=== PATIENT | male | born 1955 | race Caucasian/White ===

== ENCOUNTER 2020-08-21 09:05 | Outpatient (REF) | payer OTHER, SELFPAY ==
--- NOTE | ~2020-08-21 | US_ITS ---
EXAMINATION: US RETROPERITONEAL LIMITED (RENAL ONLY) CLINICAL INFORMATION: Cyst of kidney, acquired. COMPARISON: None TECHNIQUE: Real-time imaging of the kidneys. FINDINGS: RIGHT KIDNEY: 13.2 x 7.7 x 7.3 cm (SAG x AP x TRV). The kidney is normal in size, contour, and echogenicity. Renal cortical thickness is normal. No hydronephrosis. There are multiple anechoic cysts the largest cyst in midpole measuring 1.5 x 1.3 x 1.5 cm. There are echogenic foci within. LEFT KIDNEY: Surgically removed. US/US renal BI IMPRESSION: Multiple cysts right kidney. The largest cyst is complex measuring 1.5 cm. The left kidney has been surgically removed in 2011
== END 2020-08-21 09:06 | disposition home or self-care (01) ==
LOC: HO.US 09:05
PROVIDERS: Visit Provider Urology
DX: N28.1 Cyst of kidney, acquired (principal)
CPT/HCPCS: 76775

== ENCOUNTER → 2020-08-25 11:41 | Outpatient (BNVA) | payer OTHER, SELFPAY | PROVIDERS: PCP Family Medicine; Visit Provider Urology ==

== ENCOUNTER 2021-10-22 13:27 | Outpatient (REF) | payer OTHER, SELFPAY ==
--- NOTE | ~2021-10-22 | US_ITS ---
EXAMINATION: US RETROPERITONEAL LIMITED (RENAL ONLY) CLINICAL INFORMATION: Calculus of kidney. COMPARISON: US retroperitoneal limited (aorta) 08/21/2020. TECHNIQUE: Real-time imaging of the kidneys. FINDINGS: RIGHT KIDNEY: 13.1 x 7.6 x 8.2 cm (SAG x AP x TRV). The kidney is normal in size, contour, and echogenicity. Renal cortical thickness is normal. There are several small cysts. The largest cyst measures 1.8 x 1.3 x 1.8 cm in the midpole and is minimally complex with thin septation. There are 2 echogenic foci in the cortex of the midpole measuring 5 mm and 3 mm, questionable for small stones versus cortical calcifications. No hydronephrosis. LEFT KIDNEY: Surgically absent. US/US renal BI IMPRESSION: Right renal cysts, similar to previous exam. Small calcifications in the cortex of the midpole of the right kidney questionable for cortical calcifications versus stones.
== END 2021-10-22 13:28 | disposition home or self-care (01) ==
LOC: HO.US 13:27
PROVIDERS: Visit Provider Urology
DX: N20.0 Calculus of kidney (principal)
CPT/HCPCS: 76775

== ENCOUNTER 2023-01-01 11:01 | Outpatient (REF) | payer OTHER, SELFPAY ==
--- NOTE | ~2023-01-01 | US_ITS ---
EXAMINATION: US RETROPERITONEAL LIMITED (RENAL ONLY) CLINICAL INFORMATION: Cyst of kidney, acquired. COMPARISON: Renal ultrasound 10/22/2021 and 08/21/2020. TECHNIQUE: Real-time imaging of the kidneys. FINDINGS: RIGHT KIDNEY: 13.1 x 6.8 x 7.7 cm (SAG x AP x TRV). The kidney is normal in size, contour, and echogenicity. Renal cortical thickness is normal. No hydronephrosis. At the upper pole, a 3 mm nonobstructing calculus is seen, with twinkle artifact. At the interpolar aspect, a 4 mm nonobstructing calculus is seen, with twinkle artifact. At the lower pole, a 6 mm nonobstructing calculus or small group of calculi is seen, with twinkle artifact. At the interpolar aspect, a 1.5 cm benign, simple cyst is seen, which requires no imaging follow-up. Also at the interpolar aspect, there is a 1.7 x 1.4 x 1.4 cm mildly complex cyst with fine septation. This shows no mural nodularity or associated color Doppler flow. On the ultrasound examination of 10/23/2021, this measured 1.5 x 1.3 x 1.5 cm, and on 10/22/2021 1.8 x 1.3 x 1.8 cm. LEFT KIDNEY: Surgically absent. US/US renal BI IMPRESSION: 1. There is a continued stable appearance of a 1.7 cm mildly complex mid right renal cyst, fine septation. 2. There are nonobstructing right renal calculi. No right hydronephrosis is noted. 3. The left kidney surgically absent. No abnormal mass or fluid collection is seen within the former left renal bed.
== END 2023-01-01 11:02 | disposition home or self-care (01) ==
LOC: HO.US 11:01
PROVIDERS: PCP Pediatrics; Visit Provider Urology
DX: N28.1 Cyst of kidney, acquired (principal)
CPT/HCPCS: 76775

== ENCOUNTER 2023-01-31 13:05 | Outpatient (AMB) | payer OTHER, SELFPAY ==
--- NOTE | 2023-01-31 13:06 | MHC.OFFVIS ---
Intake Intake Visit Reasons: 1 yr follow up/ US Allergies No Known Allergies Allergy (Verified 10/31/21 11:37) Medication List - Last Reconciled 01/31/23 by Boogie Hillman MD lisinopril 40 mg PO DAILY nebivolol 20 mg PO DAILY pravastatin 20 mg PO DAILY pravastatin 40 mg PO DAILY spironolactone 12.5 mg PO DAILY HPI HPI Comments History of Present Illness Details Claudy Rajan is a very pleasant male. He is a patient of Dr Burgos. He is seen for the following urologic conditions. 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 The renal mass was diagnosed incidentally, during evaluation for, back pain. Imaging included a renal ultrasound, no progression, showing class II cyst(s) 08/03 , a renal ultrasound, 1-2 cm in size, on the right, renal cyst. Prior treatment(s) included nephrectomy. Staging of initial cancer 06/2011 Left - T1b, with no positive lymph nodes, without vena cava involvement. Recent labs include a creatinine 08/02 Cr 1.4, 08/06 1.4 PSA 08/01 2.1. Follow up imaging includes renal US, which shows, stable post intervention changes 07/31 , chest xray normal, , renal US - previosuly described cysts 01/31 , abdominal CT scan, , which shows, stable post intervention changes 08/01 , renal US, stable post intervention changes 07/03 thoracic MRI with normal right ultrasound. - 08/04 renal ultrasound absent left kidney, right kidney renal cyst 1.2 cm stable - 10/05 renal ultrasound absent left kidney, right renal cyst 1.6 cm, small stone - 11/06 renal ultrasound absent left kidney, right kidney renal cyst, small stone Therapeutic plan further surveillance with imaging Review of Systems Const All systems reviewed & are unremarkable except as noted in HPI and below Reports no additional complaints Resp Reports no additional complaints GI Reports no additional complaints Reports as per HPI Musc Reports no additional complaints Physical Exam Telemedicine evaluation Appropriate responses Regular breathing rate and rhythm HEENT Head: Yes normal to inspection Ears: hearing grossly normal bilaterally Eyes General: appearance normal, both eyes and all related structures Neck Neck: Yes normal visual inspection Chest Chest palpation & inspection: normal inspection of the chest Resp Effort & Inspection: normal respiratory effort and able to speak in complete sentences Assessment & Plan Assessment & Plan (1) Nephrolithiasis: Code(s): N20.0 - Calculus of kidney (2) Renal cyst: Code(s): N28.1 - Cyst of kidney, acquired Plan Twelve month follow-up ultrasound Orders: Orders US renal BI 364 Days N20.0 - Calculus of kidney Patient Instructions: Imaging studies, laboratory and physical exam results were discussed and reviewed in detail. No major barriers to patient understanding were identified. An opportunity to ask questions regarding the treatment plan was provided. All questions were answered. The patient expressed understanding and agreement with the above treatment plan. The patient is aware they should contact our office by phone for worsening of their current condition or the appearance of new urologic symptoms. Compliance is encouraged with any medications and followup testing that is ordered. It is a privilege to participate in the urologic care of your patient. If you have any questions or concerns regarding treatment for the above conditions, or other urologic issues, please do not hesitate to contact me. The office telephone contact is [phone]. This note is constructed using voice recognition software. While every effort has been made to ensure accuracy nuclear equipment operator errors may have been included. Yours sincerely, Dr Boogie Hillman MD, [facility] - Urology Providers of Expert, Compassionate Care for the Genitourinary System Telehealth Telehealth Location of provider rendering services: practice address Location of patient: address on file Patient Identification confirmed using: Name, : Yes Telehealth method: video Patient verbally consented to treatment: Yes Patient verbally consented to billing insurance company: Yes Patient informed of any privacy concerns related to visit: Yes Coding Level of Care Code Tele Est Pt Level 4 (68782) Diagnoses Nephrolithiasis N20.0 Renal cyst N28.1
== END 2023-01-31 13:32 | disposition home or self-care (01) ==
LOC: HO.HUSH 13:05
PROVIDERS: PCP Pediatrics; Visit Provider Urology
DX: N20.0 Calculus of kidney (principal); N28.1 Cyst of kidney, acquired
CPT/HCPCS: 99213

== ENCOUNTER → 2023-01-31 13:05 | Outpatient (BNVA) | payer OTHER, SELFPAY | PROVIDERS: PCP Pediatrics; Visit Provider Urology ==

== ENCOUNTER 2024-01-21 07:58 | Outpatient (REF) | payer BC, SELFPAY | END 2024-01-21 07:59 | disposition home or self-care (01) | LOC: HO.US 07:58 | PROVIDERS: Visit Provider Urology | DX: N20.0 Calculus of kidney (principal) | CPT/HCPCS: 76775 ==

== ENCOUNTER 2024-01-30 13:34 | Outpatient (AMB) | payer BC, SELFPAY ==
--- NOTE | 2024-01-30 13:35 | MHC.OFFVIS ---
Intake Visit Reasons: 1y/US(set) Intake Note: Patient is present for Ultrasound follow up Urology Med: None Antibiotic Allergy: None Blood Thinner: None Renal Ultrasound: 01/21/24 Corporate Human Resources Manager Required: No Accompanied by: Self / Same As Patient Allergies No Known Allergies Allergy (Verified 01/30/24 13:41) HPI Comments Details: Claudy Rajan is a very pleasant male. He is a patient of Dr Burgos. He is seen for the following urologic conditions. 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 The renal mass was diagnosed incidentally, during evaluation for, back pain. Imaging included a renal ultrasound, no progression, showing class II cyst(s) 08/03 , a renal ultrasound, 1-2 cm in size, on the right, renal cyst. Prior treatment(s) included nephrectomy. Staging of initial cancer 06/2011 Left - T1b, with no positive lymph nodes, without vena cava involvement. Recent labs include a creatinine 08/02 Cr 1.4, 08/06 1.4 PSA 08/01 2.1. Follow up imaging includes renal US, which shows, stable post intervention changes 07/31 , chest xray normal, , renal US - previosuly described cysts 01/31 , abdominal CT scan, , which shows, stable post intervention changes 08/01 , renal US, stable post intervention changes 07/03 thoracic MRI with normal right ultrasound. - 08/04 renal ultrasound absent left kidney, right kidney renal cyst 1.2 cm stable - 10/05 renal ultrasound absent left kidney, right renal cyst 1.6 cm, small stone - 11/06 renal ultrasound absent left kidney, right kidney renal cyst, small stone - 02/07 renal ultrasound absent left kidney, small cysts right kidney Therapeutic plan further surveillance with imaging Review of Systems Const Denies chills and Denies fever(s) Card Reports no additional complaints and Denies syncope Resp Denies cough GI Denies abdominal pain and Denies heartburn Reports as per HPI and Denies change in libido Neuro Denies syncope Psych Denies change in libido Endo Denies change in libido Physical Exam Const General: cooperative, healthy appearing, comfortable and no acute distress Orientation/consciousness: patient oriented x3 HEENT Face and sinus: Yes normal facial exam Mouth: moist mucous membranes Neck Neck: Yes normal visual inspection, Yes full ROM and Yes trachea midline Chest Chest palpation & inspection: normal inspection of the chest Resp Effort & Inspection: normal respiratory effort, able to speak in complete sentences and no respiratory distress GI Inspection: Yes normal to inspection Back/Spine/Pelvis Cervical Spine: normal cervical lordosis Thoracic/Lumbar Spine: thoracic and lumbar spine normal to inspection Skin General skin exam: no rashes or lesions noted Neuro General: patient oriented x3, gait normal, tone normal and moves all extremities Extrem General: Yes normal to inspection and Yes capillary refill normal Assessment & Plan Assessment & Plan (1) Renal cyst: Code(s): N28.1 - Cyst of kidney, acquired Category: Medical (2) Kidney malignancy: Code(s): C64.9 - Malignant neoplasm of unspecified kidney, except renal pelvis Category: Medical (3) Nephrolithiasis: Code(s): N20.0 - Calculus of kidney Category: Medical Plan Twelve month follow-up renal ultrasound Orders: Orders US renal BI 12 Months N20.0 - Calculus of kidney Patient Instructions: Imaging studies, laboratory and physical exam results were discussed and reviewed in detail. No major barriers to patient understanding were identified. An opportunity to ask questions regarding the treatment plan was provided. All questions were answered. The patient expressed understanding and agreement with the above treatment plan. The patient is aware they should contact our office by phone for worsening of their current condition or the appearance of new urologic symptoms. Compliance is encouraged with any medications and followup testing that is ordered. It is a privilege to participate in the urologic care of your patient. If you have any questions or concerns regarding treatment for the above conditions, or other urologic issues, please do not hesitate to contact me. The office telephone contact is [phone]. This note is constructed using voice recognition software. While every effort has been made to ensure accuracy networker errors may have been included. Yours sincerely, Dr Boogie Hillman MD, [facility] - Urology Providers of Expert, Compassionate Care for the Genitourinary System Coding Level of Care Code Est Pt Level 4 (68091) Diagnoses Renal cyst N28.1 Kidney malignancy C64.9 Nephrolithiasis N20.0
== END 2024-01-30 14:19 | disposition home or self-care (01) ==
PROVIDERS: PCP Pediatrics; Visit Provider Urology
DX: N28.1 Cyst of kidney, acquired (principal); C64.9 Malignant neoplasm of unspecified kidney, except renal pelvis; N20.0 Calculus of kidney
CPT/HCPCS: 99214

== ENCOUNTER 2025-01-18 07:52 | Outpatient (REF) | payer OTHER, SELFPAY ==
--- NOTE | ~2025-01-18 | US_ITS ---
CLINICAL HISTORY: N20.0 - Calculus of kidney US of kidneys Comparison: US/SR - US KIDNEY BILATERAL - 01/21/24 09:21 EST Findings: Status post left nephrectomy, no abnormal soft tissue in the left renal fossa. Right kidney is mildly enlarged, 13.7 cm in length, normal in echogenicity, no cortical thinning. Junctional parenchymal defect at the interpolar region. Simple cortical cysts 8 mm in the upper pole and 17 mm in the midpole. No hydronephrosis or calculus. No abnormal vascular flow. Impression: 1. Right renal benign cysts. 2. Status post left nephrectomy. This document has been electronically signed by: Ora Park MD on 01/18/2025 12:05:25
--- OUTSIDE RECORDS SUMMARY | 2025-01-18 07:55 | XMS_ITS | Clinical Summary ---
Author Organization Formerly [facility] Address [address] [place] [address] Care Team Providers Care Photographic Printer Name Role Phone Ady Barroso MD Primary Care Provider Unavaila ble Allergies No known active allergies Medications Medication Sig Dispensed Refills Start Date End Date Status aspirin EC 81 MG tablet Take 81 mg by mouth daily. 0 Active Nebivolol HCl (BYSTOLIC) 20 MG TABS Take 20 mg by mouth daily. 0 Active cholecalciferol (VITAMIN D3) 1000 units tablet Take 1,000 Units by mouth daily. 0 Active lisinopril (PRINIVIL,ZESTRIL) tablet 40 mg 0 12/03/2017 Active LORazepam (ATIVAN) 1 MG tablet 0 10/21/2017 Active spironolactone (ALDACTONE) tablet 25 mg 0 12/04/2017 Active calcipotriene (DOVONOX) 0.005 % cream 0 02/12/2018 Active fluorouracil (EFUDEX) 5 % cream 0 02/13/2018 Active pravastatin (PRAVACHOL) tablet 20 mg Take 20 mg by mouth daily. 0 Active Active Problems Problem Noted Date Diagnosed Date Essential hypertension, benign 04/26/2019 Mixed hyperlipidemia 04/26/2019 Class 1 obesity due to exces s calories with serious comorbidity and body mass index (BMI) of 32.0 to 32.9 in adult 04/26/2019 Chest discomfort 04/26/2019 Chronic kidney disease (CKD), stage III (moderat e) 04/26/2019 Low serum HDL 04/26/2019 [place] coronary artery calcium score between 1 00 and 199 04/26/2019 Chest pain 04/26/2019 Coronary artery disease invo [place]ving [place] coronary artery of [place] heart without angina pectoris 04/26/2019 Right-sided thoracic back pain 02/17/2018 BP (high blood pressure) 06/02/2017 Kidney failure 06/02/2017 Immunizations Name Administration Dates Next Due Covid-19 (Pfizer) Dilution Required 05/11/2020,0 04/18/2020 Family History Medical History Relation Name Comments Arthritis Father Hypertension Father Lung cancer Father Hypertension Mother Relation Name Status Comments Father Mother Social History Tobacco Use Types Packs/Day Years Used Date Smoking Tobacco: Never Smokeless Tobacco: Never Alcohol Use Standard Drinks/Week Comments No 0 (1 standard drink = 0.6 oz pur e alcohol) Sex and Gender Information Value Date Recorded Sex Assigned at Male 04/18/2020 3:45 PM EST Gender Identity Not on file Sexual Orientation Not on file Job Start Date Occupation Industry Not on file Not on file Not on file Last Filed Vital Signs Vital Sign Reading Time Taken Comments Blood Pressure 120/84 04/26/2019 11:54 AM EST Pulse 80 04/26/2019 11:54 AM EST Temperature 35.9 C (96.6 F) 08/07/2017 6:43 AM EDT Respiratory Rate 12 08/07/2017 8:20 AM EDT Oxygen Saturation 99% 04/26/2019 11:54 AM EST Inhaled Oxygen Concentration - - Weight 96.2 kg (212 lb) 04/26/2019 11:54 AM EST Height 172.7 cm (5' 8 ) 04/26/2019 11:54 AM EST Body Mass Index 32.23 04/26/2019 11:54 AM EST Plan of Treatment Health Maintenance Due Date Last Done Comments Hepatitis C Screening 1955 Pneumococcal Vaccine (1 of 2 - PCV) 11/26/1963 Depression Screening 1969 BMI Counseling 11/26/1975 Preventative Health Evaluation 11/26/1975 DTap / Tdap / Td (1 - Tdap) 02/25/2017 02/24/2017 Fall Risk Assessment 2022 COVID-19 Vaccine ( season) 2024 12/25/2021, 12/10/2020, 05/11/2020, Additional history exists Influenza Vaccine (#1) 2024 , 12/10/2020, 12/12/2019, Additional history exists Colon Cancer Screening (Colonoscopy) 08/08/2027 08/07/2017 RSV Adult > 60+ Yrs or (1 - 1-dose 75+ series) 2032 Shingrix-Zoster Vaccine Completed 04/12/2022, 03/28 Hepatitis B Vaccines Aged Out No long er eligible based on patient's age to complete this topic RSV Ped < 20 months Aged Out No longe r eligible based on patient's age to complete this topic Advance Directives For more information, please contact: [phone] Latest Code Status on File Code Status Date Activated Date Inactivated Comments Full Code 08/07/2017 8:00 AM 08/07/2017 3:02 PM This code status was ascertained in the following way: discussion with patient . Care Teams Photographic Printer Relationship Specialty Start Date End Date Ady Barroso MD PCP - General Family Medicine 06/02/17
--- OUTSIDE RECORDS SUMMARY | 2025-01-18 07:55 | XMS_ITS | Data Portability ---
Author Organization [place] - [facility], [facility] Address [address] [place] [address] Care Team Providers Care Military Science Instructor Name Role Phone SEHLLIE BARROSO Primary Care Provider VERNELL Norton Urologist HOLLY KAY Credit Assistant JOSÉ MIGUEL DYER Golf Ball Cover Treater BONNY DUMONT Crank Hand [phone] Assessment Encounter Date Assessment Date Assessment LastModified by Organization Details LastModified Time 03/31/2023 03/31/2023 Patient is a 67 yo M presenting to clinic for L shoulder pain [email or web address] Not available 03/31/2023 12:46:43 05/13/2023 05/13/2023 Patient presente d to office today for an annual wellness exam. Education was provided on healthy nutrition, including a diet rich in fruits and vegetables, minimizing simple carbohydrates, salt, and saturated fats. Encouraged regular cardiovascular exercise such as walking at least 30 minutes daily, 5 times per week. Emphasized preventive health measures and educated pt on fall prevention and community-based lifestyle interventions to help reduce health risks and promote healthy living. Appropriate handouts were given . [email or web address] Not available 05/13/2023 12:05:53 06/01/2024 06/01/2024 Patient presente d to office today for an annual wellness exam. Education was provided on healthy nutrition, including a diet rich in fruits and vegetables, minimizing simple carbohydrates, salt, and saturated fats. Encouraged regular cardiovascular exercise such as walking at least 30 minutes daily, 5 times per week. Emphasized preventive health measures and educated pt on fall prevention and community-based lifestyle interventions to help reduce health risks and promote healthy living. Appropriate handouts were given . [email or web address] Not available 05/31/2024 09:59:35 Plan of Treatment Reminders Order Date Submit Date Provider Last Modified By Organization Details Last Modified Time Details Appointments MEDICARE ANNUAL WELLNESS 60 2025 08:30A M Shellie Barroso MD Not available Not available Not available Lab HbA1c (hemoglob in A1c), blood 2024 025 [facility], [address] [place] [address], [place], [address], 06/08/2024 13:52:30 lipid panel, serum 2024 025 [facility], [address] [place], [address], [place], [address], 06/08/2024 13:52:23 PSA, serum or plasma 2024 025 [facility], [address] [place], [address], [place], [address], 06/08/2024 13:52:28 vitamin D, 25-hydrox y, total, serum 2024 025 [facility], [address], [address], [place], [address], 06/08/2024 13:52:29 CBC w/ auto diff 2024 025 [facility], [address], [address], [place], [address], 06/08/2024 13:52:27 CMP, serum or plasma 2024 025 [facility], [address], [address], [place], [address], 06/08/2024 13:52:26 uric acid, serum or plasma 2024 025 [facility], [address], [address], [place], [address], 06/08/2024 13:52:25 microalbu min/creat inine, mass ratio, urine 2024 025 [facility], [address], [address], [place], [address], 06/08/2024 13:52:26 lipid panel, serum 2023 024 [facility], [address], [address], [place], [address], 05/14/2023 15:07:37 urinalysi s, dipstick 2023 024 [facility], [address], [place], [address], 05/13/2023 14:52:48 PSA, serum or plasma 2023 024 [facility], [address], [address], [place], [address], 05/14/2023 15:07:41 vitamin D, 25-hydrox y, total, serum 2023 024 [facility], [address], [address], [place], [address], 05/14/2023 15:07:42 CBC w/ auto diff 2023 024 [facility], [address], [address], [place], [address], 05/14/2023 15:07:40 CMP, serum or plasma 2023 024 [facility], [address], [address], [place], [address], 05/14/2023 15:07:39 uric acid, serum or plasma 2023 [facility], [address] [place] [address], [address], [place], [address], 05/14/2023 15:07:38 microalbu min/creat inine, mass ratio, urine 2023 024 [facility], [address] [place] [address], [address], [place], [address], 05/14/2023 15:07:39 Referral physical therapist referral - M25.512 Pain in left shoulder 2023 [email or web address] [facility], [address] [place] [address], [place], [address], 04/07/2023 09:31:31 Procedures None recorded. Surgeries None recorded. Imaging XR, shoulder, 2 or more view - L shoulder pain 2023 [facility], [address] [facility] [address], [place], [address], 03/31/2023 10:13:45 Medication Orders Mounjaro 2.5 mg/0.5 mL subcutane ous pen injector 2023 024 [facility], [address] [place], [place], [id number], 06/01/2024 10:00:41 lorazepam 1 mg tablet 2023 024 [place] [facility], [address] [place] [place], [place], [id number], 05/13/2023 12:41:19 prednison e 20 mg tablet 2023 024 [place] [facility], [address] [place], [place], [id number], 05/13/2023 12:39:25 EpiPen 2-Matias 0.3 mg/0.3 mL injection , auto-inje ctor 2023 024 [place] [facility], [address] [place], [place], [id number], 05/13/2023 12:39:24 prednison e 50 mg tablet 2023 024 [facility], [address] [place], [place], [id number], 05/13/2023 12:32:33 cyclobenz aprine 5 mg tablet 2023 024 [facility], [address] [place] [place], [place], [id number], 06/01/2024 10:00:33 Patient Targets Encounter Date Encounter Id Patient Goals Patient Target Last Modified By Organization Details Last Modified Time 06/01/2024 [id number] 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 Not available Not available Not available Tobacco Smoking Status Never Not available Not available Not available 6 months of Weight 185 lbs Not available Not available Not available custodial goal of Hemoglobin A1C <5.8 Not available Not available Not available Glucose, Fasting less than 100 Not available Not available Not available HDL >40 men; >50 women Not available Not available Not available T4, Free Range 0.8-1.8 Not available Not available Not available Potassium, Serum Range 3.5 - 5.3 Not available Not available Not available TSH 0.4-4.50 Not available Not available Not available custodial goal of Cholesterol, Total less than 200 Not available Not available Not available Cholesterol, LDL less than 100 Not available Not available Not available 06/01/2024 [id number] Updated: 05/31/2024 Low salt diet?yes Home BP readings average?does not have readings, says they are good when he takes them Cardiac Symptoms (i.e. Chest Pain, Shortness of Breath, Palpitations)?st ress test a month ago, no issues since last november GI Symptoms (i.e. Abdominal pain, GERD, Constipation or Diarrhea)?none Symptoms (i.e. Frequent urination at night, Difficulty starting or stopping stream)?none CT Coronary Calcium Score? 03/2018 - CT Coronary Calcium Score = 109 02/2024 - Nuclear ETT - low risk; EF 55% AHA ASCVD 10 year Risk: 05/2024 AHA risk = 15.4% (optimal 9.6%) Sagastume Risk 05/2024 -10.8% with CCS; 10.2% without CCS Family History of CAD?yes but they were cigarette smokers, he has never smoked Obstructive Sleep Apnea?none. test done years ago came back clean RIGOBERTO or ARB? Lisinopril 20 mg (also with spironolactone 25 mg) Statin? Pravastatin 40 mg [email or web address] Not available 06/01/2024 11:26:17 Patient Instructions Encounter Date Encounter Id Patient Instructions Last Modified By Organization Details Last Modified Time 05/13/2023 [id number] shoulder pain: care instructions [email or web address] Not available 05/13/2023 12:27:11 body mass index: care instructions [email or web address] Not available 05/13/2023 12:08:53 02/19/2024 [id number] A total of approximately 35 minutes was spent with patient in evaluation and management of patient's multiple medical concerns & problems and with greater than 50% of the office visit dedicated to retrieving, reviewing and recording test & laboratory results from other providers and former EMR system, formulation of treatment options by counseling and educating, coordination of care, including authoring referral letter, if needed, development of follow up plans and authoring the above progress note. [email or web address] Not available 02/19/2024 18:26:48 06/01/2024 [id number] Follow up: 6 months for follow-up and 1 year for wellness visit Date of next scheduled visit: none made A total of 60 minutes was spent during the encounter with greater than 50% of the office visit dedicated to retrieving, reviewing and recording tests & laboratory results, formulation of treatment options, coordination of care, including authoring referral request if needed, counseling and educating, development of follow up plans and authoring the above office note . I have discussed risks, benefits and potential side effects of prescribed medications. I feel that all questions were answered to the best of my ability and to the satisfaction of the patient, who agreed to proceed with treatment plan. Advised, if not gradually improving, or if symptoms are getting worse, call the office - [phone] or make a follow up appointment for re-evaluation. A clinical summary - updated with today's visit - was given to the patient or made available on the portal . Patient education handout was given, or educational information was incorporated within this note. The policy of [facility] is to inform all patients of any tests we order. If test results are not received within a week of completion, or if there are any questions or confusion about the results or the care plan, then check with our triage/care coordination staff for the results, or make an appointment to discuss the results in depth. EGFP # [phone]. All or part of this note was created by voice recognition software. There may be unintentional sound substitutions within this note which may have gone unnoticed and uncorrected. [email or web address] Not available 06/01/2024 11:28:31 Reason for Referral Physical Therapist Referral for Pain of left shoulder blade M25.512 Pain in left shoulder Referring Physician: Rocky Rosado, Family Medicine, Encounter Date: 03/31/2023 Results Created Date Observation Date Name Description Value Unit Range Abnormal Flag Note LastModifiedBy Organization Detail LastModifiedTime 05/14/1905/14/2023 LIPID PANEL WITH REFLE X TO DIREC T LDL cholesterol, total 193 mg/dL <200 normal Not Available [facility] [place] [facility] [address] [place], [address], 05/14/2023 15:07:37 05/14/1905/14/2023 LIPID PANEL WITH REFLE X TO DIREC T LDL HDL cholesterol 50 mg/dL > or = 40 normal Not Available [facility] [place] [facility] [address] [place], [address], 05/14/2023 15:07:37 05/14/19 24 05/14/2023 LIPID PANEL WITH REFLE X TO DIREC T LDL triglyceride s 211 mg/dL <150 high If a non-f astin g speci men was colle cted, consi leta repea t trigl yceri de testi ng on a fasti ng speci men if clini suzy indic ated. Mookie rich et al. J. of Clin. Lipid ol. 2015; 9:129 -169. Not Available [facility] [place] [facility] [address] [place], [place], [address], 05/14/2023 15:07:37 05/14/19 24 05/14/2023 LIPID PANEL WITH REFLE X TO DIREC T LDL LDL-choleste rol 110 mg/dL _(nelson c) high Refer ence range : <100 Nael able range <100 mg/dL for prima ry preve ntion ; <70 mg/dL for patie nts with CHD or diabe tic patie nts with > or = 2 CHD risk facto rs. LDL-C is now calcu lated using the Kristal n-Hop kins calcu olaf n, which is a valid ated novel shiva bowles r accur acy than the Fried anirudh equat ion in the estim ation of LDL-C . Kristal coe SS et al. CUONG. 2013; 310(1 9): 2061- 2068 (http ://ed ucati on.Qu Pilar Via Novuss. com/f aq/FA Q164) Not Available [facility] [place] [facility] [address] [place], [place], [address], 05/14/2023 15:07:37 05/14/19 24 05/14/2023 LIPID PANEL WITH REFLE X TO DIREC T LDL chol/HDLC ratio 3.9 (calc ) <5.0 normal Not Available [facility] [place] [facility] [address] [place], [place], [address], 05/14/2023 15:07:37 05/14/19 24 05/14/2023 LIPID PANEL WITH REFLE X TO DIREC T LDL non HDL cholesterol 143 mg/dL _(nelson c) <130 high For patie nts with diabe alicia plus 1 major ASCVD risk facto r, treat ing to a non-H DL-C goal of <100 mg/dL (LDL- C of <70 mg/dL ) is consi dallasd a thera jennifer alvarado optio n. Not Available [facility] [place] [facility] [address], [place], [address], 05/14/2023 15:07:37 05/14/19 24 05/14/2023 URIC ACID uric acid 7.2 mg/dL 4.0-8. 0 normal Thera jennifer alvarado targe t for gout patie nts: <6.0 mg/dL Not Available [facility] [place] [facility] [address], [place], [address], 05/14/2023 15:07:38 05/14/19 24 05/14/2023 COMPR EHENS MK METAB OLIC PANEL glucose 76 mg/dL 65-99 normal Fasti ng refer ence inter albert Not Available [facility] [place] [facility] [address], [place], [address], 05/14/2023 15:07:39 05/14/19 24 05/14/2023 COMPR EHENS MK METAB OLIC PANEL urea nitrogen (BUN) 24 mg/dL 7-25 normal Not Available [facility] [place] [facility] [address], [place], [address], 05/14/2023 15:07:39 05/14/19 24 05/14/2023 COMPR EHENS MK METAB OLIC PANEL creatinine 1.29 mg/dL 0.70-1 .35 normal Not Available [facility] [place] [facility] [address], [place], [address], 05/14/2023 15:07:39 05/14/19 24 05/14/2023 COMPR EHENS MK METAB OLIC PANEL eGFR 62 mL/mi n/1.7 3m2 > or = 60 normal Not Available [facility] [address], [place], [address], 05/14/2023 15:07:39 05/14/19 24 05/14/2023 COMPR EHENS MK METAB OLIC PANEL BUN/creatini ne ratio SEE NOTE: (calc ) 6-22 Not Repor florentin: BUN and Creat inine are withi n refer ence range . Not Available [facility] [address], [place], [address], 05/14/2023 15:07:39 05/14/19 24 05/14/2023 COMPR EHENS MK METAB OLIC PANEL sodium 135 mmol/ L 135-14 6 normal Not Available [facility] [address], [place], [address], 05/14/2023 15:07:39 05/14/19 24 05/14/2023 COMPR EHENS MK METAB OLIC PANEL potassium 4.6 mmol/ L 3.5-5. 3 normal Not Available [facility] [address], [place], [address], 05/14/2023 15:07:39 05/14/19 24 05/14/2023 COMPR EHENS MK METAB OLIC PANEL chloride 99 mmol/ L 98-110 normal Not Available [facility] [address], [place], [address], 05/14/2023 15:07:39 05/14/19 24 05/14/2023 COMPR EHENS MK METAB OLIC PANEL carbon dioxide 24 mmol/ L 20-32 normal Not Available [facility] [address], [place], [address], 05/14/2023 15:07:39 05/14/19 24 05/14/2023 COMPR EHENS MK METAB OLIC PANEL calcium 10.0 mg/dL 8.6-10 .3 normal Not Available [facility] [address], [place], [address], 05/14/2023 15:07:39 05/14/19 24 05/14/2023 COMPR EHENS MK METAB OLIC PANEL protein, total 7.7 g/dL 6.1-8. 1 normal Not Available [facility] [address], [place], [address], 05/14/2023 15:07:39 05/14/19 24 05/14/2023 COMPR EHENS MK METAB OLIC PANEL albumin 4.8 g/dL 3.6-5. 1 normal Not Available [facility] [address], [place], [address], 05/14/2023 15:07:39 05/14/19 24 05/14/2023 COMPR EHENS MK METAB OLIC PANEL globulin 2.9 g/dL_ (calc ) 1.9-3. 7 normal Not Available [facility] [address], [place], [address], 05/14/2023 15:07:39 05/14/19 24 05/14/2023 COMPR EHENS MK METAB OLIC PANEL albumin/glob ulin ratio 1.7 (calc ) 1.0-2. 5 normal Not Available [facility] [address], [place], [address], 05/14/2023 15:07:39 05/14/19 24 05/14/2023 COMPR EHENS MK METAB OLIC PANEL bilirubin, total 0.6 mg/dL 0.2-1. 2 normal Not Available [facility] [address] [place], [address], 05/14/2023 15:07:39 05/14/19 24 05/14/2023 COMPR EHENS MK METAB OLIC PANEL alkaline phosphatase 56 U/L 35-144 normal Not Available [facility] [address], [place], [address], 05/14/2023 15:07:39 05/14/19 24 05/14/2023 COMPR EHENS MK METAB OLIC PANEL AST 19 U/L 10-35 normal Not Available [facility] [address], [place], [address], 05/14/2023 15:07:39 05/14/19 24 05/14/2023 COMPR EHENS MK METAB OLIC PANEL ALT 25 U/L 9-46 normal Not Available [facility] [address], [place], [address], 05/14/2023 15:07:39 05/14/19 24 05/14/2023 ALBUM IN, RANDO M URINE W/CRE ATINI NE creatinine, random urine 143 mg/dL 20-320 normal Not Available [facility] [address], [place], [address], 05/14/2023 18:11:04 05/14/19 24 05/14/2023 ALBUM IN, RANDO M URINE W/CRE ATINI NE albumin, urine 0.4 mg/dL see note: normal Refer ence Range : Refer ence Range Not estab lishe d Not Available [facility] [address], [place], [address], 05/14/2023 18:11:04 05/14/19 24 05/14/2023 ALBUM IN, RANDO M URINE W/CRE ATINI NE albumin/crea tinine ratio, random urine 3 mcg/m g_cre at <30 normal The ADA defin es abnor malit ies in album in excre tion as follo ws: Album inuri a Categ ory Resul t (mcg/ mg creat inine ) Marisol l to Mildl y incre ased <30 Moder ately incre ased 30-29 9 Sever angelo incre ased > OR = 300 The ADA recom mends that at least two of three speci mens colle cted withi n a 3-6 month perio d be abnor mal befor e consi jeovany g a patie nt to be withi n a diagn ostic categ ory. Not Available [facility] [place] [facility] [address], [place], [address], 05/14/2023 18:11:04 05/14/19 24 05/14/2023 CBC (INCL UDES DIFF/ PLT) white blood cell count 7.1 thous and/u L 3.8-10 .8 normal Not Available [facility] [address], [place], [address], 05/14/2023 15:07:40 05/14/19 24 05/14/2023 CBC (INCL UDES DIFF/ PLT) red blood cell count 5.03 js on/uL 4.20-5 .80 normal Not Available [facility] [address], [place], [address], 05/14/2023 15:07:40 05/14/19 24 05/14/2023 CBC (INCL UDES DIFF/ PLT) hemoglobin 14.9 g/dL 13.2-1 7.1 normal Not Available [facility] [address], [place], [address], 05/14/2023 15:07:40 05/14/19 24 05/14/2023 CBC (INCL UDES DIFF/ PLT) hematocrit 43.0 % 38.5-5 0.0 normal Not Available [facility] [address], [place], [address], 05/14/2023 15:07:40 05/14/19 24 05/14/2023 CBC (INCL UDES DIFF/ PLT) MCV 85.5 fL 80.0-1 00.0 normal Not Available [facility] [place] [facility] [address], [place], [address], 05/14/2023 15:07:40 05/14/19 24 05/14/2023 CBC (INCL UDES DIFF/ PLT) MCH 29.6 pg 27.0-3 3.0 normal Not Available [facility] [place] [facility] [address], [place], [address], 05/14/2023 15:07:40 05/14/19 24 05/14/2023 CBC (INCL UDES DIFF/ PLT) MCHC 34.7 g/dL 32.0-3 6.0 normal Not Available [facility] [place] [facility] [address], [place], [address], 05/14/2023 15:07:40 05/14/19 24 05/14/2023 CBC (INCL UDES DIFF/ PLT) RDW 14.0 % 11.0-1 5.0 normal Not Available [facility] [address], [place], [address], 05/14/2023 15:07:40 05/14/19 24 05/14/2023 CBC (INCL UDES DIFF/ PLT) platelet count 326 thous and/u L 140-40 0 normal Not Available [facility] [place] [facility] [address], [place], [address], 05/14/2023 15:07:40 05/14/19 24 05/14/2023 CBC (INCL UDES DIFF/ PLT) MPV 10.0 fL 7.5-12 .5 normal Not Available [facility] [place] [facility] [address], [place], [address], 05/14/2023 15:07:40 05/14/19 24 05/14/2023 CBC (INCL UDES DIFF/ PLT) absolute neutrophils 4310 cells /uL 1500-7 800 normal Not Available [facility] [place] [facility] [address], [place], [address], 05/14/2023 15:07:40 05/14/19 24 05/14/2023 CBC (INCL UDES DIFF/ PLT) absolute lymphocytes 1931 cells /uL 850-39 00 normal Not Available [facility] [place] [facility] [address], [place], [address], 05/14/2023 15:07:40 05/14/19 24 05/14/2023 CBC (INCL UDES DIFF/ PLT) absolute monocytes 781 cells /uL 200-95 0 normal Not Available [facility] [place] [facility] [address], [place], [address], 05/14/2023 15:07:40 05/14/19 24 05/14/2023 CBC (INCL UDES DIFF/ PLT) absolute eosinophils 50 cells /uL 15-500 normal Not Available [facility] [place] [facility] [address], [place], [address], 05/14/2023 15:07:40 05/14/19 24 05/14/2023 CBC (INCL UDES DIFF/ PLT) absolute basophils 28 cells /uL 0-200 normal Not Available [facility] [place] [facility] [address], [place], [address], 05/14/2023 15:07:40 05/14/19 24 05/14/2023 CBC (INCL UDES DIFF/ PLT) neutrophils 60.7 % normal Not Available [facility] [place] [facility] [address], [place], [address], 05/14/2023 15:07:40 05/14/19 24 05/14/2023 CBC (INCL UDES DIFF/ PLT) lymphocytes 27.2 % normal Not Available [facility] [place] [facility] [address], [address], 05/14/2023 15:07:40 05/14/19 24 05/14/2023 CBC (INCL UDES DIFF/ PLT) monocytes 11.0 % normal Not Available [facility] [place] [facility] [address], [place], [address], 05/14/2023 15:07:40 05/14/19 24 05/14/2023 CBC (INCL UDES DIFF/ PLT) eosinophils 0.7 % normal Not Available [facility] [place] [facility] [address], [place], [address], 05/14/2023 15:07:40 05/14/19 24 05/14/2023 CBC (INCL UDES DIFF/ PLT) basophils 0.4 % normal Not Available [facility] [place] [facility] [address], [address], 05/14/2023 15:07:40 05/14/19 24 05/14/2023 PSA, TOTAL PSA, total 1.06 NG/mL < or = 4.00 normal The total PSA value from this assay syste m is stand ardiz ed again st the [facility] stand bebe. The test resul t will be appro ximat angelo 20% lower when geena red to the equim olar- stand ardiz ed total PSA (Gaitan man Coult er). Geena rison of seria l PSA resul ts shoul d be inter prete d with this fact in mind. This test was perfo rmed using the Sieme ns chemi lumin escen t metho d. Value s obtai danilo from diffe rent assay metho ds canno t be used inter parnell eably . PSA level s, regar dless of value , shoul d not be inter prete d as absol latosha evide nce of the prese nce or absen ce of disea se. Not Available [facility] [place] [facility] [address] [place], [address], 05/14/2023 15:07:41 05/14/19 24 05/14/2023 VITAM IN D,25- OH,TO MORENO,I A vitamin D,25-oh,tota l,ia 40 NG/mL 30-100 normal Vitam in D Statu s 25-OH Vitam in D: Defic iency : <20 ng/mL Insuf ficie ncy: 20 - 29 ng/mL Optim al: > or = 30 ng/mL For 25-OH Vitam in D testi ng on patie nts on D2-stewart pplem entat ion and patie nts for whom quant itati on of D2 and D3 fract ions is requi red, the [facility] eD(TM ) 25-OH VIT D, (D2,D 3), LC/MS /MS is recom kyle d: order code 59476 (radha ents >2yrs ). See Note 1 NO COLLE CTION DATE RECEI DEONDRE. WE HAVE USED THE DATE THE SPECI MEN WAS RECEI DEONDRE BY THIS LABOR ATORY THE COLLE CTION DATE. IF THIS IS INCOR RECT, ASTRID Fraire CONTSupa CT CLIEN T SERVI PRUDENCE. PHONE JANI R: [phone] Note 1 For addit ional infor astrid terry refer to http: //[facility] rosalba coe.Que stDia gnost ics.c om/fa q/FAQ 199 (This link is being provi ded for infor jia martins/ educa priti kim purpo ses only. ) Not Available [facility] [place] [facility] [address] [place], [place], [address], 05/14/2023 15:07:42 05/13/19 24 05/13/2023 urina lysis , dipst ick Glucose Negati ve Not Available [address], [place], [address], 05/13/2023 12:02:27 05/13/19 24 05/13/2023 urina lysis , dipst ick Appearance Slight ly Cloudy Not Available [facility] [address], [place], [address], 05/13/2023 12:02:27 05/13/19 24 05/13/2023 urina lysis , dipst ick Color Pale Yellow Not Available [facility] [address], [place], [address], 05/13/2023 12:02:27 05/13/19 24 05/13/2023 urina lysis , dipst ick Leukocytes Negati ve Not Available [facility] [address], [place], [address], 05/13/2023 12:02:27 05/13/19 24 05/13/2023 urina lysis , dipst ick Nitrate Negati ve Not Available [facility] [address], [place], [address], 05/13/2023 12:02:27 05/13/19 24 05/13/2023 urina lysis , dipst ick Urobilinogen Negati ve Not Available [facility] [address], [place], [address], 05/13/2023 12:02:27 05/13/19 24 05/13/2023 urina lysis , dipst ick Protein Negati ve Not Available [facility] [address], [place], [address], 05/13/2023 12:02:27 05/13/19 24 05/13/2023 urina lysis , dipst ick pH 6.0 Not Available [facility] [address], [place], [address], 05/13/2023 12:02:27 05/13/19 24 05/13/2023 urina lysis , dipst ick Blood Negati ve Not Available [facility] [address], [place], [address], 05/13/2023 12:02:27 05/13/19 24 05/13/2023 urina lysis , dipst ick Specific Dickerson 1.020 Not Available [facility] [address], [place], [address], 05/13/2023 12:02:27 05/13/19 24 05/13/2023 urina lysis , dipst ick Ketone Negati ve Not Available [facility] [address], [place], [address], 05/13/2023 12:02:27 05/13/19 24 05/13/2023 urina lysis , dipst ick Bilirubin Negati ve Not Available [facility] [address], [place], [address], 05/13/2023 12:02:27 01/08/20 24 01/09/2024 PTH, INTAC T AND CALCI UM parathyroid hormone, intact 35 pg/mL 16 normal Inter preti ve Guide Intac t PTH Calci um ----- ----- ----- --- ----- ----- ----- -- Marisol l Parat hyroi d Marisol l Marisol l Hypop deysi yroid ism Low or Low Marisol l Low Hyper parat hyroi dism Prima ry Marisol l or High High Secon phyllis High Marisol l or Low Terti katelynn High High Non-P deysi yroid Hyper calce dian Low or Low Marisol l High Not Available [facility] [address], [place], [address], 01/09/2024 16:22:48 01/08/20 24 01/09/2024 PTH, INTAC T AND CALCI UM calcium 9.6 mg/dL 8.6-10 .3 normal Not Available [facility] [place] [facility] [address], [place], [address], 01/09/2024 16:22:48 01/08/2001/09/2024 LIPID PANEL , STAND BEBE cholesterol, total 166 mg/dL <200 normal Not Available [facility] [place] [facility] [address], [place], [address], 01/09/2024 16:22:49 01/08/2001/09/2024 LIPID PANEL , STAND BEBE HDL cholesterol 49 mg/dL > or = 40 normal Not Available [facility] [place] [facility] [address], [place], [address], 01/09/2024 16:22:49 01/08/2001/09/2024 LIPID PANEL , STAND BEBE triglyceride s 199 mg/dL <150 high Not Available [facility] [place] [facility] [address], [place], [address], 01/09/2024 16:22:49 01/08/2001/09/2024 LIPID PANEL , STAND BEBE LDL-choleste rol 87 mg/dL _(nelson c) normal Refer ence range : <100 Nael able range <100 mg/dL for prima ry preve ntion ; <70 mg/dL for patie nts with CHD or diabe tic patie nts with > or = 2 CHD risk facto rs. LDL-C is now calcu lated using the Kristal n-Hop kins calcu olaf n, which is a valid ated novel metho d marisela ashford acshavonne than the Fried anirudh equat ion in the estim ation of LDL-C . Kristal coe SS et al. CUONG. 2013; 310(1 9): 2061- 2068 (http ://ed devonati on.Qu estDi Via Novuss. com/f aq/FA Q164) Not Available [facility] [place] [facility] [address], [place], [address], 01/09/2024 16:22:49 01/08/2001/09/2024 LIPID PANEL , STAND BEBE chol/HDLC ratio 3.4 (calc ) <5.0 normal Not Available [facility] [place] [facility] [address], [place], [address], 01/09/2024 16:22:49 01/08/2001/09/2024 LIPID PANEL , STAND BEBE non HDL cholesterol 117 mg/dL _(nelson c) <130 normal For patie nts with diabe alicia plus 1 major ASCVD risk facto r, treat ing to a non-H DL-C goal of <100 mg/dL (LDL- C of <70 mg/dL ) is consi jose barrosa jennifer alvarado optio n. Not Available [facility] [place] [facility] [address], [place], [address], 01/09/2024 16:22:49 01/08/2001/09/2024 MAGNE SIUM magnesium 1.7 mg/dL 1.5-2. 5 normal Not Available [facility] [place] [facility] [address], [place], [address], 01/09/2024 16:22:49 01/08/2001/09/2024 PHOSP HATE ( PHOSP HORUS ) phosphate ( phosphorus) 4.2 mg/dL 2.1-4. 3 normal Not Available [facility] [address], [place], [address], 01/09/2024 16:22:50 01/08/2001/09/2024 URIC ACID uric acid 6.7 mg/dL 4.0-8. 0 normal Thera jennifer alvarado targe t for gout patie nts: <6.0 mg/dL Not Available [facility] [address], [place], [address], 01/09/2024 16:22:50 01/08/2001/09/2024 COMPR EHENS MK METAB OLIC PANEL glucose 97 mg/dL 65-99 normal Fasti ng refer ence inter albert Not Available [facility] [address], [place], [address], 01/09/2024 16:22:51 01/08/2001/09/2024 COMPR EHENS MK METAB OLIC PANEL urea nitrogen (BUN) 20 mg/dL 7-25 normal Not Available [facility] [address], [place], [address], 01/09/2024 16:22:51 01/08/2001/09/2024 COMPR EHENS MK METAB OLIC PANEL creatinine 1.23 mg/dL 0.70-1 .35 normal Not Available [facility] [address], [place], [address], 01/09/2024 16:22:51 01/08/2001/09/2024 COMPR EHENS MK METAB OLIC PANEL eGFR 65 mL/mi n/1.7 3m2 > or = 60 normal Not Available [facility] [address], [place], [address], 01/09/2024 16:22:51 01/08/2001/09/2024 COMPR EHENS MK METAB OLIC PANEL BUN/creatini ne ratio SEE NOTE: (calc ) 6-22 Not Repor florentin: BUN and Creat inine are withi n refer ence range . Not Available [facility] [address], [place], [address], 01/09/2024 16:22:51 01/08/20 24 01/09/2024 COMPR EHENS MK METAB OLIC PANEL sodium 133 mmol/ L 135-14 6 low Not Available [facility] [address], [place], [address], 01/09/2024 16:22:51 01/08/2001/09/2024 COMPR EHENS MK METAB OLIC PANEL potassium 4.8 mmol/ L 3.5-5. 3 normal Not Available [facility] [address], [place], [address], 01/09/2024 16:22:51 01/08/2001/09/2024 COMPR EHENS MK METAB OLIC PANEL chloride 99 mmol/ L 98-110 normal Not Available [facility] [address], [place], [address], 01/09/2024 16:22:51 01/08/2001/09/2024 COMPR EHENS MK METAB OLIC PANEL carbon dioxide 27 mmol/ L 20-32 normal Not Available [facility] [address], [place], [address], 01/09/2024 16:22:51 01/08/2001/09/2024 COMPR EHENS MK METAB OLIC PANEL calcium 9.6 mg/dL 8.6-10 .3 normal Not Available [facility] [address], [place], [address], 01/09/2024 16:22:51 01/08/2001/09/2024 COMPR EHENS MK METAB OLIC PANEL protein, total 7.3 g/dL 6.1-8. 1 normal Not Available [facility] [address], [place], [address], 01/09/2024 16:22:51 01/08/2001/09/2024 COMPR EHENS MK METAB OLIC PANEL albumin 4.3 g/dL 3.6-5. 1 normal Not Available [facility] [address] [place], [address], 01/09/2024 16:22:51 01/08/20 24 01/09/2024 COMPR EHENS MK METAB OLIC PANEL globulin 3.0 g/dL_ (calc ) 1.9-3. 7 normal Not Available [facility] [address], [place], [address], 01/09/2024 16:22:51 01/08/20 24 01/09/2024 COMPR EHENS MK METAB OLIC PANEL albumin/glob ulin ratio 1.4 (calc ) 1.0-2. 5 normal Not Available [facility] [address], [place], [address], 01/09/2024 16:22:51 01/08/20 24 01/09/2024 COMPR EHENS MK METAB OLIC PANEL bilirubin, total 0.5 mg/dL 0.2-1. 2 normal Not Available [facility] [address], [place], [address], 01/09/2024 16:22:51 01/08/20 24 01/09/2024 COMPR EHENS MK METAB OLIC PANEL alkaline phosphatase 68 U/L 35-144 normal Not Available [facility] [address], [place], [address], 01/09/2024 16:22:51 01/08/20 24 01/09/2024 COMPR EHENS MK METAB OLIC PANEL AST 16 U/L 10-35 normal Not Available [facility] [address], [place], [address], 01/09/2024 16:22:51 01/08/20 24 01/09/2024 COMPR EHENS MK METAB OLIC PANEL ALT 21 U/L 9-46 normal Not Available [facility] [address], [place], [address], 01/09/2024 16:22:51 01/08/2001/09/2024 CBC (INCL UDES DIFF/ PLT) white blood cell count 8.3 thous and/u L 3.8-10 .8 normal Not Available [facility] [address], [place], [address], 01/09/2024 16:22:51 01/08/2001/09/2024 CBC (INCL UDES DIFF/ PLT) red blood cell count 5.02 js on/uL 4.20-5 .80 normal Not Available [facility] [address], [place], [address], 01/09/2024 16:22:51 01/08/2001/09/2024 CBC (INCL UDES DIFF/ PLT) hemoglobin 14.7 g/dL 13.2-1 7.1 normal Not Available [facility] [address], [place], [address], 01/09/2024 16:22:51 01/08/2001/09/2024 CBC (INCL UDES DIFF/ PLT) hematocrit 44.5 % 38.5-5 0.0 normal Not Available [facility] [address], [place], [address], 01/09/2024 16:22:51 01/08/2001/09/2024 CBC (INCL UDES DIFF/ PLT) MCV 88.6 fL 80.0-1 00.0 normal Not Available [facility] [address], [place], [address], 01/09/2024 16:22:51 01/08/2001/09/2024 CBC (INCL UDES DIFF/ PLT) MCH 29.3 pg 27.0-3 3.0 normal Not Available [facility] [address], [place], [address], 01/09/2024 16:22:51 01/08/2001/09/2024 CBC (INCL UDES DIFF/ PLT) MCHC 33.0 g/dL 32.0-3 6.0 normal For adult s, a sligh t decre ase in the calcu lated MCHC value (in the range of 30 to 32 g/dL) is most likel y not clini suzy signi fican t; ángelaev er, it shoul d be inter prete d with cauti on in corre lat n with other red cell devon eters and the patie nt's clini nelson condi tion. Not Available [facility] [address], [place], [address], 01/09/2024 16:22:51 01/08/2001/09/2024 CBC (INCL UDES DIFF/ PLT) RDW 13.5 % 11.0-1 5.0 normal Not Available [facility] [address], [place], [address], 01/09/2024 16:22:51 01/08/2001/09/2024 CBC (INCL UDES DIFF/ PLT) platelet count 303 thous and/u L 140-40 0 normal Not Available [facility] [address], [place], [address], 01/09/2024 16:22:51 01/08/2001/09/2024 CBC (INCL UDES DIFF/ PLT) MPV 9.5 fL 7.5-12 .5 normal Not Available [facility] [address], [address], 01/09/2024 16:22:51 01/08/2001/09/2024 CBC (INCL UDES DIFF/ PLT) absolute neutrophils 5569 cells /uL 1500-7 800 normal Not Available [facility] [place] [facility] [address], [place], [address], 01/09/2024 16:22:51 01/08/2001/09/2024 CBC (INCL UDES DIFF/ PLT) absolute lymphocytes 1718 cells /uL 850-39 00 normal Not Available [facility] [place] [facility] [address], [place], [address], 01/09/2024 16:22:51 01/08/2001/09/2024 CBC (INCL UDES DIFF/ PLT) absolute monocytes 905 cells /uL 200-95 0 normal Not Available [facility] [place] [facility] [address], [place], [address], 01/09/2024 16:22:51 01/08/2001/09/2024 CBC (INCL UDES DIFF/ PLT) absolute eosinophils 66 cells /uL 15-500 normal Not Available [facility] [place] [facility] [address], [place], [address], 01/09/2024 16:22:51 01/08/2001/09/2024 CBC (INCL UDES DIFF/ PLT) absolute basophils 42 cells /uL 0-200 normal Not Available [facility] [place] [facility] [address], [place], [address], 01/09/2024 16:22:51 01/08/2001/09/2024 CBC (INCL UDES DIFF/ PLT) neutrophils 67.1 % normal Not Available [facility] [place] [facility] [address], [place], [address], 01/09/2024 16:22:51 01/08/2001/09/2024 CBC (INCL UDES DIFF/ PLT) lymphocytes 20.7 % normal Not Available [facility] [place] [facility] [address], [place], [address], 01/09/2024 16:22:51 01/08/20 24 01/09/2024 CBC (INCL UDES DIFF/ PLT) monocytes 10.9 % normal Not Available [facility] [place] [facility] [address], [address], 01/09/2024 16:22:51 01/08/20 24 01/09/2024 CBC (INCL UDES DIFF/ PLT) eosinophils 0.8 % normal Not Available [facility] [place] [facility] [address], [address], 01/09/2024 16:22:51 01/08/2001/09/2024 CBC (INCL UDES DIFF/ PLT) basophils 0.5 % normal Not Available [facility] [place] [facility] [address], [address], 01/09/2024 16:22:51 01/08/20 24 01/09/2024 VITAM IN D,25- OH,TO MORENO,I A vitamin D,25-oh,tota l,ia 44 NG/mL 30-100 normal Vitam in D Statu s 25-OH Vitam in D: Defic iency : <20 ng/mL Insuf ficie ncy: 20 - 29 ng/mL Optim al: > or = 30 ng/mL For 25-OH Vitam in D testi ng on patie nts on D2-stewart pplem entat ion and patie nts for whom quant itati on of D2 and D3 fract ions is requi red, the [facility] eD(TM ) 25-OH VIT D, (D2,D 3), LC/MS /MS is recom kyle d: order code [id number] (radha ents >2yrs ). See Note 1 Note 1 For addit ional infor astrid terry refer to http: //cj Lopez stDia gnost ics.c om/fa q/FAQ 199 (This link is being provi ded for infor jia martins/ educsupa kim purpo ses only. ) Not Available [facility] [address], [place], [address], 01/09/2024 16:22:51 01/08/2001/09/2024 HEMOG LOBIN A1C hemoglobin A1C 6.3 %_of_ total _HGB <5.7 high For someo ne witho ut known diabe alicia, a hemog lobin A1c value betwe en 5.7% and 6.4% is consi stent with predi abete s and shoul d be confi rmed with a follo w-up test. For someo ne with known diabe alicia, a value <7% indic ates that their diabe alicia is well contr olled . A1c targe ts shoul d be indiv idual ized based on durat ion of diabe alicia, age, comor bid condi tions , and other consi derat ions. This assay resul t is consi stent with an incre ased risk of diabe alicia. Curre ntly, no conse nsus exist s regar ding use of hemog lobin A1c for diagn osis of diabe alicia for child liza. Not Available [facility] [address], [place], [address], 01/09/2024 16:22:52 01/08/2001/09/2024 PROTE IN, TOTAL W/CRE AT, RANDO M URINE creatinine, random urine 119 mg/dL 20-320 normal Not Available Replaced By [facility] [address], [place], [address], 01/09/2024 16:22:53 01/08/2001/09/2024 PROTE IN, TOTAL W/CRE AT, RANDO M URINE protein/crea tinine ratio 50 mg/g_ creat 25-148 normal Not Available [facility] [address], [place], [address], 01/09/2024 16:22:53 01/08/2001/09/2024 PROTE IN, TOTAL W/CRE AT, RANDO M URINE protein/crea tinine ratio 0.050 mg/mg _crea t 0.025- 0.148 normal Not Available [facility] [place] [facility] [address], [place], [address], 01/09/2024 16:22:53 01/08/2001/09/2024 PROTE IN, TOTAL W/CRE AT, RANDO M URINE protein, total, random ur 6 mg/dL - normal Not Available [facility] [address], [place], [address], 01/09/2024 16:22:53 06/02/1906/08/2024 LIPID PANEL WITH REFLE X TO DIREC T LDL cholesterol, total 143 mg/dL <200 normal Not Available [facility] [place] [facility] [address], [place], [address], 06/08/2024 13:52:23 06/02/19 25 06/08/2024 LIPID PANEL WITH REFLE X TO DIREC T LDL HDL cholesterol 46 mg/dL > or = 40 normal Not Available [facility] [place] [facility] [address], [place], [address], 06/08/2024 13:52:23 06/02/19 25 06/08/2024 LIPID PANEL WITH REFLE X TO DIREC T LDL triglyceride s 133 mg/dL <150 normal Not Available [facility] [address], [place], [address], 06/08/2024 13:52:23 06/02/1906/08/2024 LIPID PANEL WITH REFLE X TO DIREC T LDL LDL-choleste rol 76 mg/dL _(nelson c) normal Refer ence range : <100 Nael able range <100 mg/dL for prima ry preve ntion ; <70 mg/dL for patie nts with CHD or diabe tic patie nts with > or = 2 CHD risk facto rs. LDL-C is now calcu lated using the Kristal n-Hop kins young babin n, which is a valid ated novel shiva james than the Fried anirudh alfred ion in the estim ation of LDL-C . Kristal coe SS et al. CUONG. 2013; 310(1 9): 2061- 2068 (http ://ed ucati on.Qu estDi Via Novuss. com/f aq/FA Q164) Not Available [facility] [place] [facility] [address], [place], [address], 06/08/2024 13:52:23 06/02/1906/08/2024 LIPID PANEL WITH REFLE X TO DIREC T LDL chol/HDLC ratio 3.1 (calc ) <5.0 normal Not Available [facility] [place] [facility] [address], [place], [address], 06/08/2024 13:52:23 06/02/1906/08/2024 LIPID PANEL WITH REFLE X TO DIREC T LDL non HDL cholesterol 97 mg/dL _(nelson c) <130 normal For patie nts with diabe alicia plus 1 major ASCVD risk facto r, treat ing to a non-H DL-C goal of <100 mg/dL (LDL- C of <70 mg/dL ) is consi dered a thera peshwetai jenny optio n. Not Available [facility] [place] [facility] [address], [place], [address], 06/08/2024 13:52:23 06/02/1906/08/2024 URIC ACID uric acid 6.7 mg/dL 4.0-8. 0 normal Thera peuti jenny targe t for gout patie nts: <6.0 mg/dL Not Available [facility] [place] [facility] [address], [place], [address], 06/08/2024 13:52:25 06/02/19 25 06/08/2024 COMPR EHENS MK METAB OLIC PANEL glucose 93 mg/dL 65-99 normal Fasti ng refer ence inter albert Not Available [facility] [address], [place], [address], 06/08/2024 13:52:26 06/02/19 25 06/08/2024 COMPR EHENS MK METAB OLIC PANEL urea nitrogen (BUN) 20 mg/dL 7-25 normal Not Available [facility] [address], [place], [address], 06/08/2024 13:52:26 06/02/19 25 06/08/2024 COMPR EHENS MK METAB OLIC PANEL creatinine 1.09 mg/dL 0.70-1 .35 normal Not Available [facility] [address], [place], [address], 06/08/2024 13:52:26 06/02/19 25 06/08/2024 COMPR EHENS MK METAB OLIC PANEL eGFR 75 mL/mi n/1.7 3m2 > or = 60 normal Not Available [facility] [address], [place], [address], 06/08/2024 13:52:26 06/02/19 25 06/08/2024 COMPR EHENS MK METAB OLIC PANEL BUN/creatini ne ratio SEE NOTE: (calc ) 6-22 Not Repor florentin: BUN and Creat inine are withi n refer ence range . Not Available [facility] [address], [place], [address], 06/08/2024 13:52:26 06/02/19 25 06/08/2024 COMPR EHENS MK METAB OLIC PANEL sodium 136 mmol/ L 135-14 6 normal Not Available [facility] [address], [place], [address], 06/08/2024 13:52:26 06/02/1906/08/2024 COMPR EHENS MK METAB OLIC PANEL potassium 4.6 mmol/ L 3.5-5. 3 normal Not Available [facility] [address], [place], [address], 06/08/2024 13:52:26 06/02/1906/08/2024 COMPR EHENS MK METAB OLIC PANEL chloride 101 mmol/ L 98-110 normal Not Available [facility] [address], [place], [address], 06/08/2024 13:52:26 06/02/1906/08/2024 COMPR EHENS MK METAB OLIC PANEL carbon dioxide 29 mmol/ L 20-32 normal Not Available [facility] [address], [place], [address], 06/08/2024 13:52:26 06/02/1906/08/2024 COMPR EHENS MK METAB OLIC PANEL calcium 9.4 mg/dL 8.6-10 .3 normal Not Available [facility] [address], [place], [address], 06/08/2024 13:52:26 06/02/1906/08/2024 COMPR EHENS MK METAB OLIC PANEL protein, total 7.1 g/dL 6.1-8. 1 normal Not Available [facility] [address], [place], [address], 06/08/2024 13:52:26 06/02/1906/08/2024 COMPR EHENS MK METAB OLIC PANEL albumin 4.5 g/dL 3.6-5. 1 normal Not Available [facility] [address], [place], [address], 06/08/2024 13:52:26 06/02/19 25 06/08/2024 COMPR EHENS MK METAB OLIC PANEL globulin 2.6 g/dL_ (calc ) 1.9-3. 7 normal Not Available [facility] [address], [place], [address], 06/08/2024 13:52:26 06/02/19 25 06/08/2024 COMPR EHENS MK METAB OLIC PANEL albumin/glob ulin ratio 1.7 (calc ) 1.0-2. 5 normal Not Available [facility] [address], [place], [address], 06/08/2024 13:52:26 06/02/19 25 06/08/2024 COMPR EHENS MK METAB OLIC PANEL bilirubin, total 0.5 mg/dL 0.2-1. 2 normal Not Available [facility] [address], [place], [address], 06/08/2024 13:52:26 06/02/19 25 06/08/2024 COMPR EHENS MK METAB OLIC PANEL alkaline phosphatase 59 U/L 35-144 normal Not Available [facility] [address], [place], [address], 06/08/2024 13:52:26 06/02/19 25 06/08/2024 COMPR EHENS MK METAB OLIC PANEL AST 16 U/L 10-35 normal Not Available [facility] [address], [place], [address], 06/08/2024 13:52:26 06/02/19 25 06/08/2024 COMPR EHENS MK METAB OLIC PANEL ALT 18 U/L 9-46 normal Not Available [facility] [address], [place], [address], 06/08/2024 13:52:26 06/02/19 25 06/08/2024 ALBUM IN, RANDO M URINE W/CRE ATINI NE creatinine, random urine TNP TEST NOT PERFO RMED No urine recei deondre. Not Available [facility] [place] [facility] [address], [place], [address], 06/08/2024 13:52:26 06/02/19 25 06/08/2024 ALBUM IN, RANDO M URINE W/CRE ATINI NE albumin, urine TNP TEST NOT PERFO RMED No urine recei deondre. Not Available [facility] [place] [facility] [address], [place], [address], 06/08/2024 13:52:26 06/02/19 25 06/08/2024 CBC (INCL UDES DIFF/ PLT) white blood cell count 6.1 thous and/u L 3.8-10 .8 normal Not Available [facility] [address], [place], [address], 06/08/2024 13:52:27 06/02/19 25 06/08/2024 CBC (INCL UDES DIFF/ PLT) red blood cell count 4.91 js on/uL 4.20-5 .80 normal Not Available [facility] [address], [place], [address], 06/08/2024 13:52:27 06/02/19 25 06/08/2024 CBC (INCL UDES DIFF/ PLT) hemoglobin 14.1 g/dL 13.2-1 7.1 normal Not Available [facility] [address], [place], [address], 06/08/2024 13:52:27 06/02/19 25 06/08/2024 CBC (INCL UDES DIFF/ PLT) hematocrit 43.1 % 38.5-5 0.0 normal Not Available [facility] [address], [place], [address], 06/08/2024 13:52:27 06/02/19 25 06/08/2024 CBC (INCL UDES DIFF/ PLT) MCV 87.8 fL 80.0-1 00.0 normal Not Available [facility] [address], [place], [address], 06/08/2024 13:52:27 06/02/19 25 06/08/2024 CBC (INCL UDES DIFF/ PLT) MCH 28.7 pg 27.0-3 3.0 normal Not Available [facility] [address], [place], [address], 06/08/2024 13:52:27 06/02/1906/08/2024 CBC (INCL UDES DIFF/ PLT) MCHC 32.7 g/dL 32.0-3 6.0 normal For adult s, a sligh t decre ase in the calcu lated MCHC value (in the range of 30 to 32 g/dL) is most likel y not clini suzy coxi vane t; adelia er, it shoul d be inter prete d with cauti on in [facility] [place] with other red cell devon eters and the patie nt's clini nelson condi tion. Not Available [facility] [address], [place], [address], 06/08/2024 13:52:27 06/02/1906/08/2024 CBC (INCL UDES DIFF/ PLT) RDW 13.5 % 11.0-1 5.0 normal Not Available [facility] [address], [place], [address], 06/08/2024 13:52:27 06/02/19 25 06/08/2024 CBC (INCL UDES DIFF/ PLT) platelet count 292 thous and/u L 140-40 0 normal Not Available [facility] [address], [place], [address], 06/08/2024 13:52:27 06/02/19 25 06/08/2024 CBC (INCL UDES DIFF/ PLT) MPV 9.5 fL 7.5-12 .5 normal Not Available [facility] [address], [place], [address], 06/08/2024 13:52:27 06/02/19 25 06/08/2024 CBC (INCL UDES DIFF/ PLT) absolute neutrophils 3953 cells /uL 1500-7 800 normal Not Available [facility] [address], [place], [address], 06/08/2024 13:52:27 06/02/19 25 06/08/2024 CBC (INCL UDES DIFF/ PLT) absolute lymphocytes 1470 cells /uL 850-39 00 normal Not Available [facility] [address], [place], [address], 06/08/2024 13:52:27 06/02/19 25 06/08/2024 CBC (INCL UDES DIFF/ PLT) absolute monocytes 616 cells /uL 200-95 0 normal Not Available [facility] [address], [place], [address], 06/08/2024 13:52:27 06/02/19 25 06/08/2024 CBC (INCL UDES DIFF/ PLT) absolute eosinophils 43 cells /uL 15-500 normal Not Available [facility] [address], [place], [address], 06/08/2024 13:52:27 06/02/19 25 06/08/2024 CBC (INCL UDES DIFF/ PLT) absolute basophils 18 cells /uL 0-200 normal Not Available [facility] [address], [place], [address], 06/08/2024 13:52:27 06/02/1906/08/2024 CBC (INCL UDES DIFF/ PLT) neutrophils 64.8 % normal Not Available [facility] [address], [place], [address], 06/08/2024 13:52:27 06/02/19 25 06/08/2024 CBC (INCL UDES DIFF/ PLT) lymphocytes 24.1 % normal Not Available [facility] [address], [place], [address], 06/08/2024 13:52:27 06/02/19 25 06/08/2024 CBC (INCL UDES DIFF/ PLT) monocytes 10.1 % normal Not Available [facility] [address], [place], [address], 06/08/2024 13:52:27 06/02/19 25 06/08/2024 CBC (INCL UDES DIFF/ PLT) eosinophils 0.7 % normal Not Available [facility] [address], [address], 06/08/2024 13:52:27 06/02/1906/08/2024 CBC (INCL UDES DIFF/ PLT) basophils 0.3 % normal Not Available [facility] [address], [address], 06/08/2024 13:52:27 06/02/1906/08/2024 PSA, TOTAL PSA, total 1.00 NG/mL < or = 4.00 normal The total PSA value from this assay klaus mallory is stand ardiz ed again st the WHO stand bebe. The test resul t will be appro ximat angelo 20% lower when geena red to the equim olar- stand ardiz ed total PSA (Gaitan man Coult er). Geena rison of seria l PSA resul ts shoul d be inter prete d with this fact in mind. This test was perfo rmed using the Sieme ns chemi lumin escen t metho d. Value s obtai danilo from diffe rent assay metho ds canno t be used inter parnell eably . PSA level s, regar dless of value , shoul d not be inter prete d as absol latosha evide nce of the prese nce or absen ce of disea se. Not Available [facility] [address], [address], 06/08/2024 13:52:28 06/02/1906/08/2024 VITAM IN D,25- OH,TO MORENO,I A vitamin D,25-oh,tota l,ia 59 NG/mL 30-100 normal Vitam in D Statu s 25-OH Vitam in D: Defic iency : <20 ng/mL Insuf ficie ncy: 20 - 29 ng/mL Optim al: > or = 30 ng/mL For 25-OH Vitam in D testi ng on patie nts on D2-stewart pplem entat ion and patie nts for whom quant itati on of D2 and D3 fract ions is requi red, the [facility] Assur eD(TM ) 25-OH VIT D, (D2,D 3), LC/MS /MS is recom kyle d: order code 00770 (radha ents >2yrs ). See Note 1 Note 1 For addit ional infor astrid terry refer to http: //cj coe.Sudhakar stDia gnost ics.c om/fa q/FAQ 199 (This link is being provi ded for infor jia martins/ logan kim purpo ses only. ) Not Available [facility] [address], [address], 06/08/2024 13:52:29 06/02/19 25 06/08/2024 HEMOG LOBIN A1C WITH MPG hemoglobin A1C 6.0 %_of_ total _HGB <5.7 high For someo ne witho ut known diabe alicia, a hemog lobin A1c value betwe en 5.7% and 6.4% is consi stent with predi abete s and shoul d be confi rmed with a follo w-up test. For someo ne with known diabe alicia, a value <7% indic ates that their diabe alicia is well contr olled . A1c targe ts shoul d be indiv idual ized based on durat ion of diabe alicia, age, comor bid condi tions , and other consi derat ions. This assay resul t is consi stent with an incre ased risk of diabe alicia. Curre ntly, no conse nsus exist s regar ding use of hemog lobin A1c for diagn osis of diabe alicia for child liza. Not Available [facility] [address], [place], [address], 06/08/2024 13:52:30 06/02/19 25 06/08/2024 HEMOG LOBIN A1C WITH MPG mean plasma glucose 136 mg/dL _(nelson c) Not Available [facility] [address], [place], [address], 06/08/2024 13:52:30 03/31/19 24 03/31/2023 XR, shoul leta See Note [facility] Name: HUNG Argueta Date of : 1955 Reason for Exam: Left should er pain, unspec ified [facility] Exam Date: 2023 1327 EST Report Status : F Orderi yennifer Stern er: ROCKY ROSADO PCP: Left should er, 3 views. Indica tion: Left should er pain. Findin gs: Mild degene rative sclero sis involv ing the inferi or margin of the glenoi d. There is no fractu re or disloc ation. The savi l head is centra lly seated within the glenoi d. Joint spaces appear normal for width. Soft tissue calcif icatio ns seen just superi or and latera l to the savi l head. Impres nadir: 1. Mild degene rative change s involv ing the glenoi d. 2. Probab le calcif ic tendin itis of the distal rotato r cuff. SESSIO N: Not applic able Report review ed and signed by : Dr. Ashley Taylor on 024 1:25 PM. Workst ation Name - [facility], [address] [place] [address], ARRAY( [id number]) ARRAY( [id number]) ARRAY( [id number]) [email or web address] Radiology [facility] ([facility]) [address], [place], [address], 04/02/2023 15:10:44 03/01/20 24 03/01/2024 nm stres s test with myoca rdial perfu nadir No observ ation record ed. [address], [address], 03/02/2024 08:19:20 Result Notes Documentation Provider Name and Address Organization Details Recorded Time Xr, Shoulder : See Note [facility] Patient Name: HUNG KOHLI Date of : 1955 Reason for Exam: Left shoulder pain, unspecified chronicity Exam Date: 03/31/2023 1327 EST Report Status: F Ordering Provider: ROCKY ROSADO PCP: Left shoulder, 3 views. Indication: Left shoulder pain. Findings: Mild degenerative sclerosis involving the inferior margin of the glenoid. There is no fracture or dislocation. The humeral head is centrally seated within the glenoid. Joint spaces appear normal for width. Soft tissue calcifications seen just superior and lateral to the humeral head. Impression: 1. Mild degenerative changes involving the glenoid. 2. Probable calcific tendinitis of the distal rotator cuff. SESSION: Not applicable Report reviewed and signed by : Dr. Ashley Taylor on 03/31/2023 1:25 PM. Workstation Name - [facility] Radiology [facility], [address] [place] [address] [address] [place] [address], ARRAY([id number]) ARRAY([id number]) ARRAY([id number]) Rocky Rosado DO [address], [place], [address], [facility] 04/02/2023 15:10:44 Problems Name Problem SNOMED Code Status Onset Date Resolution Date Notes Provider Name and Address Organization Details Recorded Time Congenit al renal cyst [id number] 9105 Active Problem Code: Q61.00; Problem Code Type: ICD-10; Shellie Barroso MD [address], [place], [address], [facility] 4 14:23:30 Vitamin D deficien cy 20011078 Active Problem Code: E55.9; Problem Code Type: ICD-10; Shellie Barroso MD [address], [place], [address], [facility] 4 14:23:34 Snoring 66709617 Completed 05/10/2023 Problem Code: R06.83; Problem Code Type: ICD-10; Shellie Barroso MD [address], [place], [address], [facility] 4 14:22:05 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 Problem Code: N43.3; Problem Code Type: ICD-10; Shellie Barroso MD [address] [place], [address], [facility] 4 14:22:15 Chronic anal fissure 513172472 Active Problem Code: K60.1; Problem Code Type: ICD-10; Shellie Barroso MD [address] [place], [address], [facility] 4 14:23:13 Pruritus ani 39906579 Active Problem Code: L29.0; Problem Code Type: ICD-10; Shellie Barroso MD [address] [place], [address], [facility] 4 14:23:54 Residual hemorrho idal skin tags 84805227 Completed 05/10/2023 Problem Code: K64.4; Problem Code Type: ICD-10; Shellie Barroso MD [address], [place], [address] , [facility] 4 14:22:05 Fear of flying 867361418 Active Problem Code: F40.243; Problem Code Type: ICD-10; Shellie Barroso MD [address], [place], [address] [facility] 4 14:22:15 Poisonin g due to sting of bee 1791117 Active Problem Code: T63.444D ; Problem Code Type: ICD-10; Shellie Barroso MD [address] [place], [address], [facility] 4 14:23:09 Body mass index 30+ - obesity 011636578 Active Problem Code: Z68.32; Problem Code Type: ICD-10; Shellie Barroso MD [address] [place], [address], [facility] 4 14:22:15 Presbyop ia 39685779 Active Problem Code: H52.4; Problem Code Type: ICD-10; Shellie Barroso MD [address] [place], [address] , [facility] 4 14:22:15 Bilatera l eye astigmat [facility] [id number] 9108 Active Problem Code: H52.203; Problem Code Type: ICD-10; Shellie Barroso MD [address] [place], [address], [facility] 4 14:22:15 Orthosta tic hypotens ion 86730503 Completed 05/10/2023 Problem Code: I95.1; Problem Code Type: ICD-10; Shellie Barroso MD [address], [place], [address], [employer] - [employer] [facility] 4 14:22:05 Low back pain 085931441 Completed 05/10/2023 Problem Code: M54.5; Problem Code Type: ICD-10; Shellie Barroso MD [address] , [place], [address], [place] [employer] [facility] 4 14:22:05 Peroneal tendinit is of right lower limb [id number] 9109 Completed 05/10/2023 Problem Code: M76.71; Problem Code Type: ICD-10; Shellie Barroso MD [address], [place], [address], [employer] [facility] 4 14:22:05 Lipoma of skin and subcutan eous tissue of limb 727060720 Completed 05/10/2023 Problem Code: D17.24; Problem Code Type: ICD-10; Shellie Barroso MD [address], [place], [address], [employer] [facility] 4 14:22:05 Bunion [id number] Completed 05/10/2023 Problem Code: M21.611; Problem Code Type: ICD-10; Shellie Barroso MD [address] , [place], [address], [employer] [facility] 4 14:22:05 COVID-19 630425930 Completed 05/10/2023 Problem Code: U07.1; Problem Code Type: ICD-10; Shellie Barroso MD [address] , [place], [address], [employer] [facility] 4 14:22:05 Lower abdomina l pain 93058843 Completed 05/10/2023 Problem Code: R10.30; Problem Code Type: ICD-10; Shellie Barroso MD [address] , [place], [address], [facility] [employer] [facility] 4 14:22:05 Acute lower respirat ory tract infectio n 443180537 Completed 05/10/2023 Problem Code: J22; Problem Code Type: ICD-10; Shellie Barroso MD [address], [place], [address], [facility] 4 14:22:05 Lumbosac ral radiculo cb 6862779 Active Problem Code: M54.16; Problem Code Type: ICD-10; Shellie Barroso MD [address], [place], [address], [facility] 4 14:23:20 Pain of right shoulder joint [id number] 321810 Completed 05/10/2023 Problem Code: M25.511; Problem Code Type: ICD-10; Shellie Barroso MD [address], [place], [address], [facility] 4 14:22:05 Contact dermatit is caused by plants [id number] Completed 05/10/2023 Problem Code: L25.5; Problem Code Type: ICD-10; Shellie Barroso MD [address], [place], [address], [facility] 4 14:22:05 Active immuniza tion Completed 05/10/2023 Problem Code: Z23; Problem Code Type: ICD-10; Shellie Barroso MD [address], [place], [address], [facility] 4 14:22:05 At risk - finding 812884325 Completed 05/10/2023 Problem Code: Z91.89; Problem Code Type: ICD-10; Shellie Barroso MD [address], [place], [address] [facility] 4 14:22:05 Primary malignan t neoplasm of left kidney 15191026361 9105 Active Problem Code: C64.2; Problem Code Type: ICD-10; Shellie Barroso MD [address], [place], [address], [employer] [facility] 4 14:22:56 Hematoch ezia 433995042 Completed 05/10/2023 Shellie Barroso MD [address] [place], [address], [employer] [facility] [employer] [facility] 4 14:22:05 Strain of thoracic region 58953428 Completed 05/10/2023 Shellie Barroso MD [address] , [place], [address], [employer] [facility] 4 14:22:05 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 nadir 59748217328 9100 Completed 200405/31/2024 Problem Code: I12.9; Problem Code Type: ICD-10; Shellie Barroso MD [address] [place], [address], [employer] [facility] 5 09:58:59 Adult health examinat ion Completed 200505/10/2023 Problem Code: Z00.00; Problem Code Type: ICD-10; Shellie Barroso MD [address] [place], [address], [employer] [facility] 4 14:22:05 Mixed hyperlip idemia 081196900 Active 2005 Problem Code: E78.2; Problem Code Type: ICD-10; Shellie Barroso MD [address] [place], [address], [employer] [facility] 4 14:22:27 Benign neoplasm of skin of trunk 40999650 Completed 200505/10/2023 Multiple nevus Problem Code: D23.5; Problem Code Type: ICD-10; Shellie Barroso MD [address] [place], [address], [employer] [facility] 4 14:22:05 Metaboli c syndrome X 175012961 Active 2020 Shellie Barroso MD [address], [place], [address], [place] [facility] [employer] [facility] [employer] 4 12:18:20 Proteinu aaliyah 77907600 Active 2020 Shellie Barroso MD [address] [place], [address], [place] [facility] [employer] [facility] 4 12:18:20 History of nephrect ortega 47169310759 104 Active 2020 Shellie Barroso MD [address] , [place], [address], [place] [facility] [employer] [facility] 5 09:56:04 Essentia l hyperten nadir 98362255 Active 2023 Shellie Barroso MD [address] [place], [address], [place] [facility] [employer] [employer] [facility] 4 14:23:43 Pain of left shoulder joint 84820721802 874245 Active 2023 Shellie Barroso MD [address] [place], [address], [place] [facility] 5 09:59:07 Pat s hyperpla scott 627523924 Active 2023 Shellie Barroso MD [address] [place], [address], [place] [employer] [facility] 5 09:59:41 Hyperten sive renal disease 91875117 Active 2024 Shellie Barroso MD [address] [place], [address], [place] [facility] 5 09:57:53 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 nadir 80631707563 9100 Completed 202405/31/2024 Problem Code: I12.9; Problem Code Type: ICD-10; Shellie Barroso MD [address], [place], [address], [facility] [employer] PR[facility] 5 09:58:59 Excessiv e cerumen in ear canal 626846996 Active 2024 Shellie Barroso MD [address] [place], [address], [facility] 11:12:49 Impaired fasting glycemia 973854612 Active 2024 Shellie Barroso MD [address] [place], [address], [facility] 11:26:51 Notes:Some problems listed i n Documents: #[id number], #[id number], #[id number], #[id number] could not be added to this patient's chart. Please review these documents and add these problems to the patient's chart manually as needed. Problem Notes None recorded. Procedures Surgical History Date Name Laterality Status Provider Name and Address Organization Details Recorded Time 025 EGFPCerumen Removal completed Shellie Barroso MD [address] [place], [address], [facility] 06/01/2024 11:13:26 025 EGFPCVRiskCounsel Z7182 HTN HL CAD & Z713 completed Shellie Barroso MD [address] [place], [address], [facility] 06/01/2024 11:13:34 025 GURZBfmrrokulkiH9028 completed Shellie Barroso MD [address] [place], [address], [facility] 05/31/2024 10:18:08 025 EGFPAdvDirectDiscuss (>15min) Z0000 completed Shellie Barroso MD [address] [place], [address], [facility] 05/31/2024 10:17:45 025 EGFPDepScreen Neg Z1389 completed Shellie Barroso MD [address] [facility] [address], [facility] 05/31/2024 10:17:41 025 EGFPASCVD Risk Assess Z13.6 completed Shellie Barroso MD [address] [place], [address], [facility] 06/01/2024 11:13:32 024 EGFPLiquidNitrogenAK /SebK/Warts/Skin Tags completed Shellie Barroso MD [address] [place] [phone], [facility] 02/19/2024 18:25:21 024 EGFPCVRiskCounsel Z7182 HTN HL CAD & Z713 completed Shellie Barroso MD [address] [place] [address], [facility] 05/13/2023 12:29:47 024 AXFCNlngyselfwqI7730 completed Shellie Barroso MD [address] [place] [phone], [facility] 05/10/2023 14:18:42 024 EGFPAdvDirectDiscuss (>15min) Z0000 completed Shellie Barroso MD [address] [place] [phone], [facility] 05/10/2023 14:18:52 024 EGFPDepScreen Neg Z1389 completed Shellie Barroso MD [address] [phone], [facility] 05/10/2023 14:18:57 018 screening colonoscopy completed Shellie Barroso MD [address] [place] [phone], [facility] 06/01/2024 10:09:08 Imaging Results None recorded. Procedure Notes None recorded. Medical Equipment None Reported. Allergies Allergen ID Allergen Name Allergen Category Reaction Reaction Severity Criticality Documentation Date Start Date Code Code System Note Provider Name and Address Organization Details Recorded Time 90891 honey bee venom medicatio n anaphylax is Not available high 02/19/2024 03563 7 RxNorm Gina lyons, [facility] 13:32:48 Medications Name Sig Start Date Stop Date Status Note LastModified by Organization Details LastModified Time cyclobenzap rine 10 mg tablet take 1 tablet (10 mg) by oral route 3 times per day prn muscle pain 04/12 completed Not Available Not Available Not Available promethazin e-DM 6.25 mg-15 mg/5 mL oral syrup TAKE 5 ML BY MOUTH EVERY 4 (FOUR) HOURS NEEDED FOR COUGH 05/13 completed Not Available Not Available Not Available doxycycline hyclate 100 mg capsule Take 1 Capsule ORAL twice daily for 7 days. 01/29 completed Not Available Not Available Not Available pravastatin 40 mg tablet TAKE ONE TABLET BY MOUTH EVERY DAY active Not Available Not Available No t Available benzonatate 200 mg capsule TAKE 1 CAPSULE BY MOUTH THREE TIMES A DAY NEEDED FOR COUGH 05/13 completed Not Available Not Available Not Available lisinopril 20 mg tablet TAKE ONE TABLET BY MOUTH EVERY DAY active Not Available Not Available No t Available prednisone 20 mg tablet TAKE ONE TABLET BY MOUTH EVERY DAY FOR 7 DAYS active Not Available Not Available No t Available aspirin 81 mg tablet,michelle yed release 1 {tbl} by oral route. active Not Available Not Available No t Available tramadol 50 mg tablet Take Tablet ORAL . 07/23 completed Not Available Not Available Not Available spironolact one 25 mg tablet TAKE ONE TABLET BY MOUTH EVERY DAY active Not Available Not Available No t Available Tessalon Perles 100 mg capsule Take 1 Capsule Oral THREE TIMES DAILY for 10 days. 02/01 completed Not Available Not Available Not Available prednisone 50 mg tablet TAKE ONE TABLET BY MOUTH EVERY DAY FOR 5 DAYS WITH A MEAL 05/13 completed Not Available Not Available Not Available polymyxin B sulfate 10,000 unit-trimet hoprim 1 mg/mL eye drops instill 1 drop into affected eye by ophthalmi c 4 times daily for 5 days. 03/28 completed Not Available Not Available Not Available betamethaso ne dipropionat e 0.05 % topical cream APPLT A THIN LAYER TO THE AFFECTED AREA TWO TIMES A DAY AVOID AXILLARY AREA, DACE AND GROIN active Not Available Not Available No t Available pravastatin 20 mg tablet TAKE ONE TABLET BY MOUTH EVERY DAY 03/28 completed Not Available Not Available Not Available lorazepam 1 mg tablet TAKE 1 TABLET BY MOUTH 30 MINUTES PRIOR TO FLIGHT-RE PEAT IF NEEDED AT TIME OF FLIGHT active Not Available Not Available No t Available epinephrine 0.3 mg/0.3 mL injection, auto-inject or INJECT SOON POSSIBLE FOR BEESTING active Not Available Not Available No t Available hydrocodone 10 mg-chlorphe niramine 8 mg/5 mL oral susp extend.rel 12hr take 5 millilite rs by oral route every 12 hours as needed for cough 04/12 completed Not Available Not Available Not Available lisinopril 40 mg tablet Changed to 20 mils daily (1/2 tablet) 05/13 completed Not Available Not Available Not Available fluticasone propionate 50 mcg/actuati on nasal spray,suspe nsion SPRAY 1 SPRAY INTO EACH NOSTRIL EVERY DAY 05/13 completed Not Available Not Available Not Available azithromyci n 500 mg tablet take 1 tablet (500 mg) by oral route once daily For 5 days (will continue to work for 10 days) 04/12 completed Not Available Not Available Not Available cyclobenzap rine 5 mg tablet TAKE ONE TABLET BY MOUTH THREE TIMES A DAY FOR 7 DAYS 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 10/03 completed Not Available Not Available Not Available aspirin Take 1 Tablet ORAL once each day. 05/31 completed Not Available Not Available Not Available Zithromax TAKE TWO CAPSULES NOW THEN TAKE ONE CAPSULE; DAILY FOR FOUR MORE DAYS. TAKE ONE HOUR; BEFORE OR TWO HOURS AFTER A MEAL. 06/23 completed Not Available Not Available Not Available fluoxetine Take 1 Tablet ORAL daily. 03/13 completed Not Available Not Available Not Available Tylenol-Cod eine #3 Take 1-2 ORAL q4h as needed. 03/13 completed Not Available Not Available Not Available metoprolol tartrate Take 1 Tablet ORAL twice daily. 07/10 completed Not Available Not Available Not Available diazepam Take 1 Tablet ORAL 30 min before flight. 02/01 completed Not Available Not Available Not Available hydrochloro thiazide Take 1 Tablet ORAL once each day. 11/14 completed Not Available Not Available Not Available alprazolam Take 1-2 Tablet ORAL 1 hour before flight. 02/01 completed Not Available Not Available Not Available simvastatin Take 1 Tablet ORAL each evening or bedtime. 11/02 completed Not Available Not Available Not Available lisinopril Take 1 Tablet ORAL daily. 10/21 completed Not Available Not Available Not Available Diovan HCT Take 1 ORAL daily. 03/13 completed Not Available Not Available Not Available Plendil Take 1 Tablet ORAL daily. 12/06 completed Not Available Not Available Not Available metoprolol succinate Take 1 Tablet ORAL daily. 09/04 completed Not Available Not Available Not Available Vitamin D3 Take 1 Tablet ORAL daily. 06/04 completed Not Available Not Available Not Available Hyzaar Take 1 Tablet oral qd. 03/13 completed Not Available Not Available Not Available Tussionex Pennkinetic ER USE 1/2 TO 1 TSP EVERY 8-12 HR PRN; SEVERE COUGH ONLY. MAX. 2 TSP/DAY 10/11 completed Not Available Not Available Not Available Diltiazem HCl ER Beads Take 1 Capsule ORAL QD. 10/21 completed Not Available Not Available Not Available Fish Oil Extra Strength Viva Naturals take 2 soft gels = EPA 1400 mg & DHA 480 mg (C Triple Strength is good also ) 04/12 completed Not Available Not Available Not Available Mucinex 1,200 mg tablet, extended release Take 1 tablet twice daily with plenty of water as needed for cough. 03/12 completed Not Available Not Available Not Available Bystolic Take 1 Tablet ORAL DAILY. 02/24 completed Not Available Not Available Not Available cholecalcif chris (vitamin D3) 50 mcg (2,000 unit) capsule Take 1 Capsule ORAL daily. 2016 active Not Available Not Available Not Avai lable nebivolol 20 mg tablet TAKE ONE TABLET BY MOUTH EVERY DAY active Not Available Not Available No t Available amlodipine besylate (bulk) Take 1 Tablet ORAL once each day. 11/02 completed Medic ation Name: 'AMLO DIPIN E BESYL ATE'; Not Available Not Available Not Available Anusol-HC 2.5 % topical cream with perineal applicator Take apply Cream Rectal twice daily. as needed for anal irritatio n as directed 10/21 completed Not Available Not Available Not Available Mounjaro 2.5 mg/0.5 mL subcutaneou s pen injector Inject 2.5 mg every week by subcutane ous route for 30 days. 06/01 completed Not Available Not Available Not Available Zepbound 2.5 mg/0.5 mL subcutaneou s pen injector Inject 2.5 mg every week by subcutane ous route. 06/01 completed Not Available Not Available Not Available Vitals Date Recorded Body height Oxygen saturation Oxygen saturation in Arterial blood by Pulse oximetry Heart rate Body mass index (BMI) Body weight Systolic And Diastolic Provider Name and Address Organization Details Last Updated DateTime 4 172.09 cm 98 % 98 % 96 /min 32.3 kg/m2 71498.9 9 g 142/90 mm[Hg] Clari Quiñones [facility] 4 09:52:27 Date Recorded Body height Body mass index (BMI) Body weight Body temperature Oxygen saturation Oxygen saturation in Arterial blood by Pulse oximetry Heart rate Systolic And Diastolic Provider Name and Address Organization Details Last Updated DateTime 4 172.09 cm 32.1 kg/m2 88584.9 1 g 97.3 [degF] 96 % 96 % 74 /min 119/73 mm[Hg] Acacia Dupont [facility] 4 11:12:08 Date Recorded Body height Body mass index (BMI) Body weight Provider Name and Address Organization Details Last Updated DateTime 06/01/2024 172.09 cm 30.5 kg/m2 98361.32 g Brendancarolin Aiken [facility] 06/01/2024 09:36:01 Date Recorded Body height Body mass index (BMI) Body weight Oxygen saturation Oxygen saturation in Arterial blood by Pulse oximetry Heart rate Body temperature Systolic And Diastolic Provider Name and Address Organization Details Last Updated DateTime 172.09 cm 32.5 kg/m2 62598.3 g 98 % 98 % 64 /min 97.8 [degF] 134/81 mm[Hg] Gina Olguinrambo [facility] 13:38:50 Social History Question Answer Notes LastModified by Organizat ion Details LastModified Time Tobacco Smoking Status Never Smoker Not Available [facility] 12/02/2022 12:00:44 Do You Have An Advance Directive? No [email or web address] Information not available 05/13/2023 Do You Wear A Helmet When Biking? Yes Information not available 05/13/2023 Are You Blind Or Do You Have Difficulty Seeing? No Information not available 05/13/2023 Are You Deaf Or Do You Have Serious Difficulty Hearing? No Information not available 05/13/2023 What Type Of Diet Are You Following? REGULAR [email or web address] Information not available 05/13/2023 What Is The Highest Grade Or Level Of School You Have Completed Or The Highest Degree You Have Received? [id number] [email or web address] Information not available 05/13/2023 Have There Been Any Changes To Your Family Or Social Situation? No Information not available 05/13/2023 What Is The Fluoride Status Of Your Home? Fluoridated [email or web address] Information not available 05/13/2023 Are There Any Guns Present In Your Home? Yes [email or web address] Information not available 05/13/2023 Which Of Your Hands Is Dominant? Right Information not available 05/13/2023 Where Do You Live? [facility] [email or web address] Information not available 05/13/2023 What Was The Date Of Your Most Recent Tobacco Screening? 06/01/2024 [email or web address] Information not available 06/01/2024 Do You Have Any Pets? No [email or web address] Information not available 05/13/2023 Do You Use Your Seat Belt Or Car Seat Routinely? Yes [email or web address] Information not available 05/13/2023 Do You Have Any Siblings? 2 Brothers [email or web address] Information not available 05/13/2023 Do You Have Smoke And Carbon Monoxide Detectors In Your Home? Yes [email or web address] Information not available 05/13/2023 Are There Any Smokers In Your House? No [email or web address] Information not available 05/13/2023 Do You Participate In Social Media? No Information not available 05/13/2023 What Types Of Sporting Activities Do You Participate In? Golf [email or web address] Information not available 05/13/2023 Do You Use Sunscreen Routinely? Yes Information not available 05/13/2023 Do You Have Difficulty Walking Or Climbing Stairs? No [email or web address] Information not available 05/13/2023 Are You Currently In School? No [email or web address] Information not available 05/13/2023 Sex: Unknown Functional Status Question Answer Note LastModified by Organizat ion Details LastModified Time How many times per week do you consume alcohol? 1-2 times per week [email or web address] Information not available 05/13/2023 Are you currently employed? Yes [email or web address] Information not available 05/13/2023 Do you have transportation difficulties? No [email or web address] Information not available 05/13/2023 Are you able to care for yourself independently? Yes [email or web address] Information not available 05/13/2023 Do you have difficulty dressing, bathing, grooming, or toileting? No Information not available 05/13/2023 What is your exercise level? None [email or web address] Information not available 05/13/2023 Do you use any illicit or recreational drugs? No [email or web address] Information not available 12/02/2022 Do you or have you ever used any other forms of tobacco or nicotine? No [email or web address] Information not available 05/13/2023 What is your level of alcohol consumption? Occasional [email or web address] Information not available 05/13/2023 Are you able to walk independently without assistance or assistive devices? YESWOREST [email or web address] Information not available 05/13/2023 Do you have difficulty doing errands alone? 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 Other airport Information not available 05/13/2023 Mental Status Question Answer Note LastModified by Organizat ion Details LastModified Time Do you feel stressed (tense, restless, nervous, or anxious, or unable to sleep at night)? [id number] [email or web address] Information not available 05/13/2023 Do you have difficulty concentrating, remembering or making decisions? No [email or web address] Information no t available 05/13/2023 Family History Nothing Reported Notes:*Relative: Unspecified Relation *Problem: .D: 06 : 08:11am Updated: 07/29/06 10:36 AM Family History: Father : HTN, CVA, lung cancer () Mother : alive & well Paternal Grandfather: from unknown cause(s) no information given Paternal Grandmother: from unknown cause(s) no information given Maternal Grandfather: from unknown cause(s) age 70s Maternal Grandmother: from unknown cause(s) age 70s older brother hypertension age 64 older brother hypertension, CABG and at age 55 from complications Hypertension: yes Hyperlipidemia: yes Coronary heart disease: no Stroke or other vascular disease: yes Diabetes mellitus: no Colorectal cancer: no information given Lung cancer: no information given Prostate cancer: no information given Skin cancer: no information given Alzheimer's: no information given Alcoholism: no information given Mental illness: no information given Medical History Condition Response G47 Obstructive Sleep Apnea Y I CARDIOVASCULAR -Cardiology K GASTROENTEROLOGY C ONCOLOGY (cancer) Y M54 Back Problems Y T ALLERGY(Food, seasonal, environmental) Immunizations Vaccine Type Date Status Note Provider Nam e and Address Organization Details Recorded Time Influenza, high-dose, trivalent, PF 4 completed Shellie Barroso MD [address], [place], [address], [facility] 12/28/2023 07:07:49 Tdap 7 completed Not Available [facility] 12/23/2022 07:09:16 Tdap 2 completed Not Available [facility] 12/23/2022 07:09:16 Influenza, split virus, trivalent, preservative 2 completed Not Available [facility] 12/23/2022 07:09:16 Influenza, split virus, trivalent, preservative 0 completed Not Available [facility] 12/23/2022 07:09:16 Td (adult), 5 Lf tetanus toxoid, preservative free, adsorbed 7 completed Not Available [facility] 12/23/2022 07:09:17 SARS-COV-2 (COVID-19) vaccine, UNSPECIFIED 2 completed Not Available [facility] 12/23/2022 07:09:17 Influenza, split virus, trivalent, preservative 1 completed Not Available [facility] 12/23/2022 07:09:17 Influenza, split virus, trivalent, preservative 5 completed Not Available [facility] 12/23/2022 07:09:17 zoster live 8 completed Not Available [facility] 12/23/2022 07:09:17 zoster recombinant 2 completed Not Available [facility] 12/23/2022 07:09:17 zoster recombinant 3 completed Not Available [facility] 12/23/2022 07:09:17 COVID-19, mRNA, LNP-S, PF, 30 mcg/0.3 mL dose 1 completed Shellie Barroso MD [address], [place], [address], [facility] 02/16/2024 12:18:20 COVID-19, mRNA, LNP-S, PF, 30 mcg/0.3 mL dose 1 completed Shellie Barroso MD [address], [place], [address], [facility] 02/16/2024 12:18:20 Influenza, high-dose, trivalent, PF 3 completed Shellie Barroso MD [address], [place], [address], [facility] 02/16/2024 12:18:20 Influenza, high-dose, trivalent, PF 7 completed Shellie Barroso MD [address] [place], [address], [facility] 02/16/2024 12:18:20 Influenza, high-dose, trivalent, PF 8 completed Shellie Barroso MD [address], [place], [address], [facility] 02/16/2024 12:18:20 Influenza, high-dose, trivalent, PF 6 completed Shellie Barroso MD [address], [place], [address], [facility] 02/16/2024 12:18:21 Influenza, split virus, trivalent, preservative 9 completed Shellie Barroso MD [address] [place], [address], [facility] 02/16/2024 12:18:21 Pneumococcal conjugate PCV20, polysaccharide OID853 conjugate, adjuvant, PF 4 completed [facility] 05/13/2023 12:53:18 Past Encounters Encounter ID Performer Location Encounter Start Date Encounter Closed Date Diagnosis/Indication Diagnosis SNOMED-CT Code Diagnosis ICD10 Code Diagnosis IMO Codes Diagnosis Note [id number] Rcoky Rosado DO [facility] [address] [place] [address] 03/31/2023 09:46:44 03/31/2023 10:12:36 Pain of left shoulder blade 799203255 M25.512 Likely sprain/str ain. Started on muscle relaxer and prednisone burstXR for further evaluation PT [facility] referral [id number] Shellie Barroso MD [facility] [address] [place] [address] 05/13/2023 10:38:02 05/13/2023 12:23:10 Adult health examination 624597599 Z00.00 Will send handout regarding diet and exercise program as noted below. Essential hypertension 01263486 I10 1. Patient's medication list was reviewed and updated, and education was provided emphasizin g adherence to taking all medication s as prescribed , including statins. 2. BP CONTROL CARE PLAN 1. Lose weight (if your BMI is elevated) - When people think about losing weight, they sometimes make it more complicate d than it really is. To lose weight, you have to either eat less or move more. If you do both of those things, it's even better. But there is no single weight-los s diet or activity that's better than any other. When it comes to weight loss, the most effective plan is the one that you'll stick with. 2.Improve your diet - There is no single diet that is right for everyone. But in general, a healthy diet can include: Lots of fruits, vegetables , and whole grains Some beans, peas, lentils, chickpeas, and similar foods Some nuts, such as walnuts, almonds, and peanuts Fat-free or low-fat milk and milk products Some fish To have a healthy diet, it's also important to limit or avoid sugar, sweets, meats, and refined grains. (Refined grains are found in white bread, white rice, most forms of pasta, and most packaged snack foods.) 3. Reduce salt - Many people think that eating a low-sodium diet means avoiding the salt shaker and not adding salt when cooking. The truth is, not adding salt at the table or when you cook will only help a little. Almost all of the sodium you eat is already in the food you buy at the grocery store or at restaurant s. The most important thing you can do to cut down on sodium is to eat less processed food. That means that you should avoid most foods that are sold in cans, boxes, jars, and bags. You should also eat in restaurant s less often. To reduce the amount of sodium you get, buy fresh or fresh-froz en fruits, vegetables , and meats. (Fresh-fro pallavi foods have had nothing added to them before freezing.) 4. Become more active - If you want to be more active, you don't have to go to the gym or get all sweaty. It is possible to increase your activity level while doing everyday things you enjoy. Walking, gardening, and dancing are just a few of the things that you might try. As with all the other changes, the vargas is not to do too much too fast. If you don't do any activity now, start by walking for just a few minutes every other day. Do that for a few weeks. If you stick with it, try doing it for longer. But if you find that you don't like walking, try a different activity. 5. Drink less alcohol - If you are a woman, do not have more than 1 standard drink of alcohol a day. If you are a man, do not have more than 2 standard drinks of alcohol daily. 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 Vitamin D deficiency 347 53571 E55.9 Is taking vitamin D not sure if he is in a therapeuti c range. Primary ma lignant neoplasm of left kidney [id number] 15411 C64.2 This has been quiescent. He continues to follow-up with the nephrologi st/urologi st Body mass index 30+ - obesity 716169374 Z68.32 Follow these guidelines for weight reduction. Each 7-10% of weight reduction will improve diabetes, blood pressure, lipids, orthopedic problems, depression and will help prevent certain cancers. 1. Concentrat e on eating fresh fruits, vegetables , whole grains & lean cuts of meat. 2. Limit fatty foods, processed foods and sweets. Minimize breads, pastas, cakes, cookies, candies, ice cream & chips. Eat a few nuts, berries or grapes for snacks. 3. Get a calorie counter booklet and look up and record everything BEFORE you eat it. 4. If you can not figure out how many calories are in the food you are about to eat, DO NOT EAT IT. 5. Calculate how many calories/d ay your body needs to stay at your present weight by multiplyin g your weight by 11 - i.e. , if you weigh 200 pounds then you are taking in 2200 calories/d ay just to stay at that weight. 6. To lose 1 pound per week, you must reduce your calories by 3500 per week, or 500 calories per day - i.e. the 200 pound person should take 2200 calories less 500 calories or 1700 calorie/da y to lose 1 pound per week. 7. Exercise for 30 minutes 5 days per week getting your pulse to aerobic goal ((220 minus your age) x 0.75) 8. Minimize soda, juices and alcoholic drinks. Drink water instead. 9. Avoid fast foods. Split a healthy meal when you go out to a nice restaurant . 10. Increase your activities throughout the day, get up often and move. 11. Use a salad plate for your main meals to reduce portion size. 12. 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 Screening for cardiovascular system disease 161724212 Z13.6 CAD prevention heart Disease Prevention Heart disease is a leading cause of for both men and women. You can lower your risk of heart disease by exercising , eating a healthy diet, quitting smoking, and reducing stress. Stay physically active as advised by your provider. __ Heart disease decreases the quality of life of millions of Americans and is the leading cause of for both men and women. These things increase your risk for heart disease: High blood pressure High cholestero l High blood glucose (diabetes) Being overweight Smoking Not getting enough exercise Choosing a healthier lifestyle helps control these risk factors and prevent heart problems. If you already have heart disease, a healthier lifestyle may keep heart problems from returning or getting worse. A healthier lifestyle includes physical activity, eating a healthy diet, quitting smoking, and reducing stress. Exercise. Physical activity can help you control your weight. It can also help keep blood pressure, blood cholestero l, and blood glucose at normal levels. Exercise that increases your breathing and heart rate, such as walking, swimming, or dancing, is very important for keeping your heart and lungs working well. Even when you exercise regularly, having more active time in between exercise will help prevent heart disease. Eat healthy. Eating fewer calories to lose excess weight helps lower blood pressure and cholestero l levels. Getting to a healthier weight also lowers your risk of having a heart attack or stroke. If you have type 2 diabetes, losing excess weight improves blood glucose control. You may even be able to take less diabetes medicine. Cutting back on salt (sodium) helps lower blood pressure. If you already have heart disease, limiting sodium helps decrease swelling and shortness of breath. Choosing foods low in total fat, especially saturated fat, trans fat, and cholestero l helps improve cholestero l levels. It also helps lower your risk of heart attack and stroke. Increasing the fiber in your diet helps lower LDL cholestero l level and improves blood glucose control. Good sources are beans, whole grains, bran, brown rice, popcorn, nuts, vegetables , and berries. Eating more fruits and vegetables helps lower blood pressure. They can replace less healthy foods in your diet, and they add vitamins, minerals, and fiber. Quit smoking. Smoking narrows the blood vessels that carry blood to your heart muscle. They are more likely to get blocked and cause heart disease. Stopping smoking lowers your risk of heart attack, stroke, diabetes complicati ons, lung disease, and certain cancers. Talk to your healthcare provider about ways to quit smoking. Reduce stress. Reducing stress can help you have normal blood pressure and heart rate. Take time out for the things you enjoy. Hobbies can be helpful. You might enjoy group activities through your evangelical or gym, or playing cards with friends. Physical exercise, meditation , massage, and relaxation exercises can also help lower stress. Diet education 26483367 Z71.3 Consider following a Mediterran judah diet - This is typically high in fruits, vegetables , whole grains, beans, nuts, and seeds; include olive oil as an important source of monounsatu rated fat; and allow low to moderate wine consumptio n. Also, low to moderate amounts of fish, poultry, and dairy products, with little red meat. Several health benefits: reductions in overall mortality, cardiovasc ular mortality - (stroke, myocardial infarction , cardiovasc ular ), cancer incidence and mortality, and incidence of Parkinson disease and Alzheimer disease . Also, there was a decreased risk for colorectal , prostate, aerodigest mk, oropharyng eal, and breast cancer and prevention of type 2 diabetes mellitus. Exercises education, guidance, and counseling 770370083 Z71.82 The informatio n about this condition is given to patient orally at the visit and is reiterated in this note for patient's reference. This note is available for review by patient on the portal. EXERCISE ADVICE: Exercise has the following benefits. 1. [place] calories, which helps people lose weight 2. Helps control blood sugar levels in people with diabetes 3. Lowers blood pressure, especially in people with high blood pressure 4. Lowers stress and helps with depression 5. Keeps bones strong, so they don t get thin and break easily 6. Lowers the chance of dying from heart disease There are 3 main types of exercise. Aerobic exercise - Aerobic exercise raises a person s heart rate. Examples are walking, running, or swimming. Resistance training - Resistance training helps make your muscles stronger. People can do this type of exercise using weights, exercise bands, or weight machines. One common regimen includes free weights or exercise equipment consisting of 10 to 15 repetition s of each exercise for arms, shoulders, chest, trunk, back, hips, and legs performed two to three times a week. Stretching - Stretching exercises help your muscles and joints move more easily. It s important to have all 3 types of exercise in your exercise program. That way, your body, muscles, and joints can be as healthy as possible. When you start an exercise program, start slowly. For example, do the exercise at a slow pace or for a few minutes only. Over time, you can exercise faster and for longer periods of time. Each time you exercise, you should: 1. Warm up - Warming up can help keep you from hurting your muscles when you exercise. To warm up, do a light aerobic exercise (such as walking slowly) or stretch for 5 to 10 minutes. 2. Work out - During a workout, you can walk fast, swim, run, or use an exercise machine, for example. You should also stretch all of your joints, including your neck, shoulders, back, hips, and knees. At least 2 times a week, you can add resistance training exercises to your workout. 3. Cool down - Cooling down helps keep you from feeling dizzy after you exercise and helps prevent muscle cramps. To cool down, you can stretch or do a light aerobic exercise for 5 minutes. How often should I exercise? - Doctors recommend that people exercise at least 30 minutes a day, on 5 or more days of the week. If you can t exercise for 30 minutes straight, try to exercise for 10 minutes at a time, 3 or 4 times a day. Start with low-intens ity exercise for 150 minutes per week i.e. walking 3 miles/hr @ 20 min/mile, ballroom dancing, or golfing with cart. Increase intensity (faster walking or leisure biking) for 125 minutes per week. Then, do some moderate intensity exercise, such as walking a 15 minute mile, exercise biking at quick speed, aerobic dancing or golfing while carrying clubs, for 100 minutes per week. If able, then add some intensive aerobic activity such as jogging, walking on an incline, doing moderate biking, or lap swimming, for 75 minutes per week. Advance di rective discussed with patient [id number] Z71.89 Patient states that he has the advanced directive partially filled out at home. Advised him to be sure that we get a copy. Screening for disorder [id number] Z13.89 Questionna ires were negative Mixed hyperlipidemia [id number] E78.2 Patient's medication list was reviewed and updated, and education was provided carlitos holden adherence to taking all medication s as prescribed , including statins. Continue with good diet, plenty of fruits, vegetables , lean cuts of meat, whole grain breads, but limit amount of carbohydra alicia. To control your weight, prevent or control diabetes and improve the cholestero l profile, especially the triglyceri audrey, avoid or limit the following C words: Cookies, Cakes, Candies, Cheese, ice Cream, Crackers, Chips & the simple Carbohydra alicia found in Alcohol, Breads and Pasta. Increase your fruits and vegetables and limit your portion size. Consume these C's as much as desired: Cauliflowe r, Cabbage, Carrots, Cucumbers & Celery. Exercise regularly for 20-30 minutes, 5 days per week. Pain of le ft shoulder joint [id number] M25.512 1. Heat prior to playing golf, then stretching exercises 2. Ice pack to the shoulders after playing golf for 15 minutes and then heat x 15 minutes and then stretching and range of motion exercises 3. May use acetaminop hen 500 mg 2 tablets after playing golf and then again before bedtime 4. If needed may add prednisone 20 mg daily to reduce the inflammati on. He is unable to take anti-infla mmatories secondary to absent kidney. 5. Follow the shoulder pain instructio ns. [id number] Shellie Barroso MD [address] [id number] 12/27/2023 11:12:40 12/27/2023 11:18:07 Active immunization [id number] Z23 [id number] Active or passive immunization [id number] Z23 [id number] Shellie Barroso MD [address] [address] 02/19/2024 13:22:20 02/19/2024 15:24:17 Body mass index 30+ - obesity [id number] Z68.32 Follow these guidelines for weight reduction. Each 7-10% of weight reduction will improve diabetes, blood pressure, lipids, orthopedic problems, depression and will help prevent certain cancers.1. Concentrat e on eating fresh fruits, vegetables , whole grains & lean cuts of meat.2. Limit fatty foods, processed foods and sweets. Minimize breads, pastas, cakes, cookies, candies, ice cream & chips. Eat a few nuts, berries or grapes for snacks.3. Get a calorie counter booklet and look up and record everything BEFORE you eat it.4. If you can not figure out how many calories are in the food you are about to eat, DO NOT EAT IT.5. Calculate how many calories/d ay your body needs to stay at your present weight by multiplyin g your weight by 11 - i.e. , if you weigh 200 pounds then you are taking in 2200 calories/d ay just to stay at that weight.6. To lose 1 pound per week, you must reduce your calories by 3500 per week, or 500 calories per day - i.e. the 200 pound person should take 2200 calories less 500 calories or 1700 calorie/da y to lose 1 pound per week.7. Exercise for 30 minutes 5 days per week getting your pulse to aerobic goal ((220 minus your age) x 0.75)8. Minimize soda, juices and alcoholic drinks. Drink water instead.9. Avoid fast foods. Split a healthy meal when you go out to a nice restaurant .10. Increase your activities throughout the day, get up often and move.11. Use a salad plate for your main meals to reduce portion size.12. Eat SLOWLY, to give your brain a chance to recognize that you're full, before you eat too much I did put into the sure scripts in the [employer] and the [employer]. Also tried the Zepbound not feasible 10 to be covered by the insurance. Will see preauthori zation does. Otherwise patient will try to do with the old-fashi oned way . 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 The locations of these are very prone to be irritated especially the one on the right upper lip. [id number] Shellie Barroso MD [address] [phone] 06/01/2024 09:23:36 06/01/2024 10:43:55 Essential hypertension [id number] I10 1. Patient's medication list was reviewed and updated, and education was provided emphasizin g adherence to taking all medication s as prescribed , including statins. 2. BP CONTROL CARE PLAN 1. Lose weight (if your BMI is elevated) - When people think about losing weight, they sometimes make it more complicate d than it really is. To lose weight, you have to either eat less or move more. If you do both of those things, it's even better. But there is no single weight-los s diet or activity that's better than any other. When it comes to weight loss, the most effective plan is the one that you'll stick with. 2.Improve your diet - There is no single diet that is right for everyone. But in general, a healthy diet can include: Lots of fruits, vegetables , and whole grains Some beans, peas, lentils, chickpeas, and similar foods Some nuts, such as walnuts, almonds, and peanuts Fat-free or low-fat milk and milk products Some fish To have a healthy diet, it's also important to limit or avoid sugar, sweets, meats, and refined grains. (Refined grains are found in white bread, white rice, most forms of pasta, and most packaged snack foods.) 3. Reduce salt - Many people think that eating a low-sodium diet means avoiding the salt shaker and not adding salt when cooking. The truth is, not adding salt at the table or when you cook will only help a little. Almost all of the sodium you eat is already in the food you buy at the grocery store or at restaurant s. The most important thing you can do to cut down on sodium is to eat less processed food. That means that you should avoid most foods that are sold in cans, boxes, jars, and bags. You should also eat in restaurant s less often. To reduce the amount of sodium you get, buy fresh or fresh-froz en fruits, vegetables , and meats. (Fresh-fro pallavi foods have had nothing added to them before freezing.) 4. Become more active - If you want to be more active, you don't have to go to the gym or get all sweaty. It is possible to increase your activity level while doing everyday things you enjoy. Walking, gardening, and dancing are just a few of the things that you might try. As with all the other changes, the vargas is not to do too much too fast. If you don't do any activity now, start by walking for just a few minutes every other day. Do that for a few weeks. If you stick with it, try doing it for longer. But if you find that you don't like walking, try a different activity. 5. Drink less alcohol - If you are a woman, do not have more than 1 standard drink of alcohol a day. If you are a man, do not have more than 2 standard drinks of alcohol daily. A standard drink is: A can or bottle that has 12 ounces of beer A glass that has 5 ounces of wine A shot that has 1.5 ounces of whiskey Mixed hyperlipidemia [id number] E78.2 Patient's medication list was reviewed and updated, and education was provided carlitos holden adherence to taking all medication s as prescribed , including statins. Continue with good diet, plenty of fruits, vegetables , lean cuts of meat, whole grain breads, but limit amount of carbohydra alicia. To control your weight, prevent or control diabetes and improve the cholestero l profile, especially the triglyceri audrey, avoid or limit the following C words: Cookies, Cakes, Candies, Cheese, ice Cream, Crackers, Chips & the simple Carbohydra alicia found in Alcohol, Breads and Pasta. Increase your fruits and vegetables and limit your portion size. Consume these C's as much as desired: Cauliflowe r, Cabbage, Carrots, Cucumbers & Celery. Exercise regularly for 20-30 minutes, 5 days per week. Vitamin D deficiency [id number] E55.9 Is taking vitamin D not sure if he is in a therapeuti c range. Primary ma lignant neoplasm of left kidney [id number] 82946 C64.2 This has been quiescent. He continues to follow-up with the nephrologi st/urologi st Body mass index 30+ - obesity [id number] Z68.30 [id number] Follow these guidelines for weight reduction. Each 7-10% of weight reduction will improve diabetes, blood pressure, lipids, orthopedic problems, depression and will help prevent certain cancers.1. Concentrat e on eating fresh fruits, vegetables , whole grains & lean cuts of meat.2. Limit fatty foods, processed foods and sweets. Minimize breads, pastas, cakes, cookies, candies, ice cream & chips. Eat a few nuts, berries or grapes for snacks.3. Get a calorie counter booklet and look up and record everything BEFORE you eat it.4. If you can not figure out how many calories are in the food you are about to eat, DO NOT EAT IT.5. Calculate how many calories/d ay your body needs to stay at your present weight by multiplyin g your weight by 11 - i.e. , if you weigh 200 pounds then you are taking in 2200 calories/d ay just to stay at that weight.6. To lose 1 pound per week, you must reduce your calories by 3500 per week, or 500 calories per day - i.e. the 200 pound person should take 2200 calories less 500 calories or 1700 calorie/da y to lose 1 pound per week.7. Exercise for 30 minutes 5 days per week getting your pulse to aerobic goal ((220 minus your age) x 0.75)8. Minimize soda, juices and alcoholic drinks. Drink water instead.9. Avoid fast foods. Split a healthy meal when you go out to a nice restaurant .10. Increase your activities throughout the day, get up often and move.11. Use a salad plate for your main meals to reduce portion size.12. Eat SLOWLY, to give your brain a chance to recognize that you're full, before you eat too much I did put into the sure scripts in the [employer] and the [employer]. Also tried the Zepbound not feasible 10 to be covered by the insurance. Will see preauthori zation does. Otherwise patient will try to do with the old-fashi oned way . Lumbosacra l radiculopathy [id number] M54.17 This is quiescent at this point History of nephrectomy [id number] 9104 Z90.5 His GFR is almost normal despite loss of 1 kidney. He would like blood work to go to his nephrologi st and his urologist. Hypertensi ve renal disease 89806774 I12.9 N18.31 [id number] Has had malignancy of the kidney and has 1 kidney at this point has to avoid anti-infla mmatories. Pain of le ft shoulder joint [id number] 8345341 M25.512 1. Heat prior to playing golf, then stretching exercises 2. Ice pack to the shoulders after playing golf for 15 minutes and then heat x 15 minutes and then stretching and range of motion exercises 3. May use acetaminop hen 500 mg 2 tablets after playing golf and then again before bedtime 4. If needed may add prednisone 20 mg daily to reduce the inflammati on. He is unable to take anti-infla mmatories secondary to absent kidney. 5. Follow the shoulder pain instructio ns. Active or passive immunization [id number] Z23 He is up-to-date Screening for malignant neoplasm of colon 428906932 Z12.11 Review of his last colonoscop y. It appears that his colorectal surgeon said 5 years but he has had negative colonoscop ies in 2007 and then in 2018 so his next colonoscop y should be in 2027. Patient will address it at that time. Screening for malignant neoplasm of prostate 025551326 Z12.5 He had a digital rectal exam with the specialist . Screening for cardiovascular system disease 426106508 Z13.6 CAD prevention heart Disease Prevention Heart disease is a leading cause of for both men and women.You can lower your risk of heart disease by exercising , eating a healthy diet, quitting smoking, and reducing stress.Sta y physically active as advised by your provider._ _ Heart disease decreases the quality of life of millions of Americans and is the leading cause of for both men and women. These things increase your risk for heart disease: High blood pressureHi gh cholestero lHigh blood glucose (diabetes) Being overweight SmokingNot getting enough exerciseCh oosing a healthier lifestyle helps control these risk factors and prevent heart problems. If you already have heart disease, a healthier lifestyle may keep heart problems from returning or getting worse. A healthier lifestyle includes physical activity, eating a healthy diet, quitting smoking, and reducing stress. Exercise.P hysical activity can help you control your weight. It can also help keep blood pressure, blood cholestero l, and blood glucose at normal levels. Exercise that increases your breathing and heart rate, such as walking, swimming, or dancing, is very important for keeping your heart and lungs working well. Even when you exercise regularly, having more active time in between exercise will help prevent heart disease. Eat healthy.Ea ting fewer calories to lose excess weight helps lower blood pressure and cholestero l levels. Getting to a healthier weight also lowers your risk of having a heart attack or stroke. If you have type 2 diabetes, losing excess weight improves blood glucose control. You may even be able to take less diabetes medicine. Cutting back on salt (sodium) helps lower blood pressure. If you already have heart disease, limiting sodium helps decrease swelling and shortness of breath. Choosing foods low in total fat, especially saturated fat, trans fat, and cholestero l helps improve cholestero l levels. It also helps lower your risk of heart attack and stroke. Increasing the fiber in your diet helps lower LDL cholestero l level and improves blood glucose control. Good sources are beans, whole grains, bran, brown rice, popcorn, nuts, vegetables , and berries.Ea ting more fruits and vegetables helps lower blood pressure. They can replace less healthy foods in your diet, and they add vitamins, minerals, and fiber. Quit smoking.Sm oking narrows the blood vessels that carry blood to your heart muscle. They are more likely to get blocked and cause heart disease. Stopping smoking lowers your risk of heart attack, stroke, diabetes complicati ons, lung disease, and certain cancers. Talk to your healthcare provider about ways to quit smoking. Reduce stress.Red ucing stress can help you have normal blood pressure and heart rate. Take time out for the things you enjoy. Hobbies can be helpful. You might enjoy group activities through your evangelical or gym, or playing cards with friends. Physical exercise, meditation , massage, and relaxation exercises can also help lower stress. Diet education 00617877 Z71.3 Consider following a Mediterran judah diet - This is typically high in fruits, vegetables , whole grains, beans, nuts, and seeds; include olive oil as an important source of monounsatu rated fat; and allow low to moderate wine consumptio n. Also, low to moderate amounts of fish, poultry, and dairy products, with little red meat. Several health benefits: reductions in overall mortality, cardiovasc ular mortality - (stroke, myocardial infarction , cardiovasc ular ), cancer incidence and mortality, and incidence of Parkinson disease and Alzheimer disease . Also, there was a decreased risk for colorectal , prostate, aerodigest mk, oropharyng eal, and breast cancer and prevention of type 2 diabetes mellitus. Exercises education, guidance, and counseling [id number] Z71.82 The informatio n about this condition is given to patient orally at the visit and is reiterated in this note for patient's reference. This note is available for review by patient on the portal. EXERCISE ADVICE: Exercise has the following benefits. 1. [place] calories, which helps people lose weight 2. Helps control blood sugar levels in people with diabetes 3. Lowers blood pressure, especially in people with high blood pressure 4. Lowers stress and helps with depression 5. Keeps bones strong, so they don t get thin and break easily 6. Lowers the chance of dying from heart disease There are 3 main types of exercise. Aerobic exercise - Aerobic exercise raises a person s heart rate. Examples are walking, running, or swimming. Resistance training - Resistance training helps make your muscles stronger. People can do this type of exercise using weights, exercise bands, or weight machines. One common regimen includes free weights or exercise equipment consisting of 10 to 15 repetition s of each exercise for arms, shoulders, chest, trunk, back, hips, and legs performed two to three times a week. Stretching - Stretching exercises help your muscles and joints move more easily. It s important to have all 3 types of exercise in your exercise program. That way, your body, muscles, and joints can be as healthy as possible. When you start an exercise program, start slowly. For example, do the exercise at a slow pace or for a few minutes only. Over time, you can exercise faster and for longer periods of time. Each time you exercise, you should: 1. Warm up - Warming up can help keep you from hurting your muscles when you exercise. To warm up, do a light aerobic exercise (such as walking slowly) or stretch for 5 to 10 minutes. 2. Work out - During a workout, you can walk fast, swim, run, or use an exercise machine, for example. You should also stretch all of your joints, including your neck, shoulders, back, hips, and knees. At least 2 times a week, you can add resistance training exercises to your workout. 3. Cool down - Cooling down helps keep you from feeling dizzy after you exercise and helps prevent muscle cramps. To cool down, you can stretch or do a light aerobic exercise for 5 minutes. How often should I exercise? - Doctors recommend that people exercise at least 30 minutes a day, on 5 or more days of the week. If you can t exercise for 30 minutes straight, try to exercise for 10 minutes at a time, 3 or 4 times a day. Start with low-intens ity exercise for 150 minutes per week i.e. walking 3 miles/hr @ 20 min/mile, ballroom dancing, or golfing with cart. Increase intensity (faster walking or leisure biking) for 125 minutes per week. Then, do some moderate intensity exercise, such as walking a 15 minute mile, exercise biking at quick speed, aerobic dancing or golfing while carrying clubs, for 100 minutes per week. If able, then add some intensive aerobic activity such as jogging, walking on an incline, doing moderate biking, or lap swimming, for 75 minutes per week. Advance di rective discussed with patient [id number] Z71.89 Patient states that he has the advanced directive partially filled out at home. Advised him to be sure that we get a copy. Screening for disorder [id number] Z13.89 Questionna ires were negative General ex amination of patient 212524255 Z00.01 [id number] Will send handout regarding diet and exercise program as noted below. Excessive cerumen in ear canal 466321546 H61.22 [id number] See procedure note Impaired f asting glycemia [id number] R73.01 [id number] Health Concerns Section Related Observation LastModified by Organization Detai ls LastModified Time None Recorded Concern Status LastModified by Organization Details LastModified Time None Recorded Advance Directives Directive N: Payers Insurance Date Sequence Insurance Name Policy Number Policy Allred Covered Member ID Allred Member ID Guarantor Name 02/19/2024 1 [facility] [id number] Hung Kohli [id number] Hung Kohli 02/19/2024 2 [facility] (PPO) Hung Kohli [id number] Hung Kohli 05/29/2024 1 [employer] [employer] [id number] Hung Casanova [id number] Hung Kohli Notes Date Note Type Note Provider Name and Address Organization Details Recorded Time 4 text/html ROS as noted in the HPI Patient is a 67 yo M presenting to clinic for L shoulder pain. States the symptoms started about 4 days ago, with no improvement. Patient states he was playing with his grandkids when the pain started and slowly progressed throughout the day. Denies any injuries or inciting incidents. Patient states pain is located to anterior portion of glenohumeral joing and will radiate down to his hand. Admits to numbness/tingling and weakness of his hand. States he cannot lift or move his shoulder due to pain. States he has only tried ice and rest with minimal improvement.States has had similar issues 8-10 years ago calcium build up and cortisone shot cleared it up for about a week and PT helped as well. Rocky Rosado DO [address], [place], [address], [facility] 03/31/2023 12:48:00 4 text/html Medicare Annual Wellness VisitReported by Patient Hypertension IM/FMReported by Patient Advanced directive: Does not have in chart - 1157F Data:Colonoscopy : Document in chart - 3017F Data:07/2017 - Colonoscopy - wnl - repeat 2024 per [facility] Vaccines due: Needs PCV 20 History since last visit/Topics to discuss:Declined AD info.Has shoulder pain.Declined PCV 20Medications as listed on sheet.Patient is here for a wellness visit. He states that he has been feeling well. He notes that he has a locked shoulder. Went to physical therapy. He did take prednisone 50 mg for 5 days and things got better. Then his right shoulder started to hurt especially at the right trapezius region. He does have a golfing trip next week where he will be playing 18 holes daily for about 7 days. He is little bit worried about this. Otherwise he has been seeing his urologist his kidney functions have been stable. He states that the urologist does do his prostate check he does not know if he had a PSA done recently this year. 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 Otherwise he has pretty much retired. He does have 6 grandchildren and he does visit with them. Patient's medication list was reviewed and updated, and education was provided emphasizing adherence to taking all medications as prescribed, including statins. He denies chest pain shortness of breath abdominal pain or discomfort. No nocturia or difficulty starting or stopping stream of urine. Shoulder problems as above. Shellie Barroso MD [address], [place], [address], [facility] 05/13/2023 12:57:13 4 text/html Advanced directive: Does not have in chart - 1157F Information given on Data: 4Colonoscopy : Document in chart - 3017F Data: 07/2017 - Colonoscopy - wnl - repeat 2024 per [facility] Vaccines due: Up-to-date History since last visit/Topics to discuss:1. His battery stacker wants him to start Mounjaro. His A1c is 6.3% prediabetic but not diabetic. His BMI is greater than 32. He can be on Mounjaro or Wegovy for obesity, but not diabetes. Long discussion with patient regarding this. Did put Wegovy in to the order and his insurance will not cover it. Also has put Mounjaro on and looking for preauthorization but they probably will not cover it because he is not diabetic. I did put Zepbound into the order and it looks like his insurance will not cover that. Handouts given and discussed with the patient. He is going to try to work with diet and exercise regarding this. He does have a number of skin lesions on the face. 1 at the upper lip 3 on the right cheek 2 on the left cheek looking up very similar to sebaceous hyperplasia and small wart. Shellie Barroso MD [address] [place] [address], [place], [address], [facility] 02/19/2024 18:27:32 5 text/html Medicare Annual Wellness VisitReported by Patient Advanced directive: Does not have in chart - 1157F Please give informationdeclined new info, says he will work on it at homeData:Colonoscopy : Document in chart - [id number] Data:07/2017 - Colonoscopy - wnl - repeat 2027 per [facility] Vaccines due: He is up-to-date with immunizations (has not had COVID-vaccine since 2021) History since last visit/Topics to discuss:1. When does he think he will get his advance directive to us? will work on it with laywer2. I believe Dr. Lovelace has retired; can give a referral to hot dip galvanizer unless he has set up something with the colorectal surgeon already. will take referral, was not aware gi doc retired3. Did he make any progress with diet, exercise, and weight loss? What happened with the Zepbound?zepbound was not approved. lost 15lbs since january Updated: 05/31/2024Low salt diet?yesHome BP readings average?does not have readings, says they are good when he takes themCardiac Symptoms (i.e. Chest Pain, Shortness of Breath, Palpitations)?stress test a month ago, no issues since last novemberGI Symptoms (i.e. Abdominal pain, GERD, Constipation or Diarrhea)?noneGU Symptoms (i.e. Frequent urination at night, Difficulty starting or stopping stream)?noneCT Coronary Calcium Score? 03/2018 - CT Coronary Calcium Score = 109 02/2024 - Nuclear ETT - low risk; EF 55%AHA ASCVD 10 year Risk: 05/2024 AHA risk = 15.4% (optimal 9.6%)Sag[place]ume Risk 05/2024 -10.8% with CCS; 10.2% without CCSFamily History of CAD?yes but they were cigarette smokers, he has never smokedObstructive Sleep Apnea?none. test done years ago came back cleanACE or ARB? Lisinopril 20 mg (also with spironolactone 25 mg)Statin? Pravastatin 40 mg Above information is reviewed & endorsed by this provider. No other issues other than he is a little miffed about not being able to get the GLP-1 agonist although I did write prescriptions for both the Mounjaro and for Zepbound. He states that he thinks that you dropped the ball. [id number] evaluation: Shellie Barroso MD [address], [place], [address], [facility] 06/01/2024 14:06:36
--- OUTSIDE RECORDS SUMMARY | 2025-01-18 07:55 | XMS_ITS ---
[facility] Name [facility] Organization Unknown Results Test Name/Text Value Interpretation Date Range Source Urate SerPl-mCnc 6.7 mg/dL Normal 06/08/2024 4 - 8 QU EST Neutrophils NFr Bld Auto 64.8 % Normal 06/08/2024 [facility] RBC Auto-EntMCnc 32.7 g/dL Normal 06/08/2024 32 - 36 [facility] Neutrophils # Bld Auto 3953.0 cells/uL Normal 06/08/2024 1500 - 7800 [facility] RBC # Bld Auto 4.91 Million/uL Normal 06/08/2024 4.2 - 5.8 [facility] Platelet # Bld Auto 292.0 Thousand/uL Normal 06/08/2024 140 - 400 [facility] Monocytes # Bld Auto 616.0 cells/uL Normal 06/08/2024 200 - 950 [facility] PMV Bld Anthony-Srikanth 9.5 fL Normal 06/08/2024 7.5 - 12.5 [facility] WBC # Bld Auto 6.1 Thousand/uL Normal 06/08/2024 3.8 - 10.8 [facility] Lymphocytes NFr Bld Auto 24.1 % Normal 06/08/2024 [facility] Basophils # Bld Auto 18.0 cells/uL Normal 06/08/2024 0 - 200 [facility] RBC Auto 87.8 fL Normal 06/08/2024 80 - 100 [facility] Hgb Bld-mCnc 14.1 g/dL Normal 06/08/2024 13.2 - 17.1 [facility] T Monocytes NFr Bld Auto 10.1 % Normal 06/08/2024 [facility] Hct VFr Bld Auto 43.1 % Normal 06/08/2024 38.5 - 50 QU EST Basophils NFr Bld Auto 0.3 % Normal 06/08/2024 [facility] RBC Qn Auto 28.7 pg Normal 06/08/2024 27 - [address] Eosinophil NFr Bld Auto 0.7 % Normal 06/08/2024 [facility] Lymphocytes # Bld Auto 1470.0 cells/uL Normal 06/08/2024 850 - 3900 [facility] Eosinophil # Bld Auto 43.0 cells/uL Normal 06/08/2024 15 - 500 [facility] RDW RBC Auto 13.5 % Normal 06/08/2024 11 - 15 [facility] Est. average glucose Bld gHb Est-mCnc 136.0 mg/dL (calc) Normal 06/08/2024 [facility] HbA1c MFr Bld 6.0 % of total Hgb Above high normal 06/08/2024 - 5.7 [facility] Creat Ur-mCnc TNP Normal 06/08/2024 [facility] Microalbumin Ur-mCnc TNP Normal 06/08/2024 [facility] NonHDLc SerPl-mCnc 97.0 mg/dL (calc) Normal 06/08/2024 - 130 [facility] Cholest/HDLc SerPl 3.1 (calc) Normal 06/08/2024 - 5 [facility] HDLc SerPl-mCnc 46.0 mg/dL Normal 06/08/2024 - QU EST LDLc SerPl Calc-mCnc 76.0 mg/dL (calc) Normal 06/08/2024 [facility] Trigl SerPl-mCnc 133.0 mg/dL Normal 06/08/2024 - 150 [facility] Cholest SerPl-mCnc 143.0 mg/dL Normal 06/08/2024 - 200 [facility] Service Cmnt-Imp Normal 06/08/2024 QU EST 25(OH)D3+25(OH)D2 SerPl-mCnc 59.0 ng/mL Normal 06/08/2024 30 - 100 [facility] CO2 SerPl-sCnc 29.0 mmol/L Normal 06/08/2024 20 - 32 [facility] EST Potassium SerPl-sCnc 4.6 mmol/L Normal 06/08/2024 3.5 - 5 .3 [facility] Albumin/Glob SerPl 1.7 (calc) Normal 06/08/2024 1 - 2.5 [facility] Globulin Ser Calc-mCnc 2.6 g/dL (calc) Normal 06/08/2024 1.9 - 3.7 [facility] BUN SerPl-mCnc 20.0 mg/dL Normal 06/08/2024 7 - [address] Glucose SerPl-mCnc 93.0 mg/dL Normal 06/08/2024 65 - 99 [facility] AST SerPl-cCnc 16.0 U/L Normal 06/08/2024 10 - 35 [facility] T Bilirub SerPl-mCnc 0.5 mg/dL Normal 06/08/2024 0.2 - 1.2 [facility] Prot SerPl-mCnc 7.1 g/dL Normal 06/08/2024 6.1 - 8.[address] Albumin SerPl-mCnc 4.5 g/dL Normal 06/08/2024 3.6 - 5.1 [facility] Calcium SerPl-mCnc 9.4 mg/dL Normal 06/08/2024 8.6 - 10.3 [facility] ALP SerPl-cCnc 59.0 U/L Normal 06/08/2024 35 - 144 [facility] Creat SerPl-mCnc 1.09 mg/dL Normal 06/08/2024 0.7 - 1.35 [facility] Chloride SerPl-sCnc 101.0 mmol/L Normal 06/08/2024 98 - 1 10 [facility] Sodium SerPl-sCnc 136.0 mmol/L Normal 06/08/2024 135 - 14 6 [facility] ALT SerPl-cCnc 18.0 U/L Normal 06/08/2024 9 - 46 [facility] T eGFRcr SerPlBld CKD-EPI 2020 75.0 mL/min/1.73m2 Normal 06/08/2024 - [facility] BUN/Creat SerPl SEE NOTE: Normal 06/08/2024 6 - [address] PSA SerPl-mCnc 1.0 ng/mL Normal 06/08/2024 - [facility] T Phosphate SerPl-mCnc 4.2 mg/dL Normal 01/09/2024 2.1 - 4. 3 [facility] 25(OH)D3+25(OH)D2 SerPl-mCnc 44.0 ng/mL Normal 01/09/2024 30 - 100 [facility] RDW RBC Auto-Rto 13.5 % Normal 01/09/2024 11 - 15 [facility] MCHC RBC Auto-mCnc 33.0 g/dL Normal 01/09/2024 32 - 36 [facility] Basophils # Bld Auto 42.0 cells/uL Normal 01/09/2024 0 - 200 [facility] MCV RBC Auto 88.6 fL Normal 01/09/2024 80 - 100 [facility] WBC # Bld Auto 8.3 Thousand/uL Normal 01/09/2024 3.8 - 10.8 [facility] Monocytes/leuk NFr Bld Auto 10.9 % Normal 01/09/2024 [facility] RBC Qn Auto 29.3 pg Normal 01/09/2024 27 - [address] Hgb Bld-mCnc 14.7 g/dL Normal 01/09/2024 13.2 - 17.1 [facility] T Neutrophils # Bld Auto 5569.0 cells/uL Normal 01/09/2024 1500 - 7800 [facility] Lymphocytes/leuk NFr Bld Auto 20.7 % Normal 01/09/2024 [facility] Eosinophil/leuk NFr Bld Auto 0.8 % Normal 01/09/2024 [facility] RBC # Bld Auto 5.02 Million/uL Normal 01/09/2024 4.2 - 5.8 [facility] Eosinophil # Bld Auto 66.0 cells/uL Normal 01/09/2024 15 - 500 [facility] Lymphocytes # Bld Auto 1718.0 cells/uL Normal 01/09/2024 850 - 3900 [facility] Hct VFr Bld Auto 44.5 % Normal 01/09/2024 38.5 - 50 QU EST PMV Bld Anthony-Srikanth 9.5 fL Normal 01/09/2024 7.5 - 12.5 [facility] Platelet # Bld Auto 303.0 Thousand/uL Normal 01/09/2024 140 - 400 [facility] Neutrophils/leuk NFr Bld Auto 67.1 % Normal 01/09/2024 [facility] Monocytes # Bld Auto 905.0 cells/uL Normal 01/09/2024 200 - 950 [facility] Basophils/leuk NFr Bld Auto 0.5 % Normal 01/09/2024 [facility] HbA1c MFr Bld 6.3 % of total Hgb Above high normal 01/09/2024 - 5.7 [facility] Urate SerPl-mCnc 6.7 mg/dL Normal 01/09/2024 4 - 8 [facility] Creat SerPl-mCnc 1.23 mg/dL Normal 01/09/2024 0.7 - 1.35 [facility] Albumin SerPl-mCnc 4.3 g/dL Normal 01/09/2024 3.6 - 5.1 [facility] Chloride SerPl-sCnc 99.0 mmol/L Normal 01/09/2024 98 - 11 0 [facility] BUN/Creat SerPl SEE NOTE: Normal 01/09/2024 6 - [address] Potassium SerPl-sCnc 4.8 mmol/L Normal 01/09/2024 3.5 - 5 .3 [facility] Prot SerPl-mCnc 7.3 g/dL Normal 01/09/2024 6.1 - 8.[address] Bilirub SerPl-mCnc 0.5 mg/dL Normal 01/09/2024 0.2 - 1.2 [facility] ALP SerPl-cCnc 68.0 U/L Normal 01/09/2024 35 - 144 [facility] BUN SerPl-mCnc 20.0 mg/dL Normal 01/09/2024 7 - [address] Glucose SerPl-mCnc 97.0 mg/dL Normal 01/09/2024 65 - 99 [facility] ALT SerPl-cCnc 21.0 U/L Normal 01/09/2024 9 - 46 [facility] AST SerPl-cCnc 16.0 U/L Normal 01/09/2024 10 - 35 [facility] T eGFRcr SerPlBld CKD-EPI 2020 65.0 mL/min/1.73m2 Normal 01/09/2024 - [facility] Globulin Ser Calc-mCnc 3.0 g/dL (calc) Normal 01/09/2024 1.9 - 3.7 [facility] CO2 SerPl-sCnc 27.0 mmol/L Normal 01/09/2024 20 - 32 [facility] Calcium SerPl-mCnc 9.6 mg/dL Normal 01/09/2024 8.6 - 10.3 [facility] Albumin/Glob SerPl 1.4 (calc) Normal 01/09/2024 1 - 2.5 [facility] Sodium SerPl-sCnc 133.0 mmol/L Below low normal 01/09/2024 1 35 - 146 [facility] Magnesium SerPl-mCnc 1.7 mg/dL Normal 01/09/2024 1.5 - 2. 5 [facility] Creat Ur-mCnc 119.0 mg/dL Normal 01/09/2024 20 - [address] Prot/Creat Ur 0.05 mg/mg creat Normal 01/09/2024 0.025 - 0.148 [facility] Prot Ur-mCnc 6.0 mg/dL Normal 01/09/2024 5 - 25 [facility] Calcium SerPl-mCnc 9.6 mg/dL Normal 01/09/2024 8.6 - 10.3 [facility] PTH-Intact SerPl-mCnc 35.0 pg/mL Normal 01/09/2024 16 - 7 7 [facility] Cholest/HDLc SerPl 3.4 (calc) Normal 01/09/2024 - 5 [facility] HDLc SerPl-mCnc 49.0 mg/dL Normal 01/09/2024 - QU EST NonHDLc SerPl-mCnc 117.0 mg/dL (calc) Normal 01/09/2024 - 130 [facility] LDLc SerPl Calc-mCnc 87.0 mg/dL (calc) Normal 01/09/2024 [facility] Cholest SerPl-mCnc 166.0 mg/dL Normal 01/09/2024 - 200 [facility] Trigl SerPl-mCnc 199.0 mg/dL Above high normal 01/09/2024 - 150 [facility] History of Medication Use Medication Directions Dispensed Refills Start Date End Date Stat Zepbound 2.5 mg/0.5 mL subcutaneous pen injector Inject 2.5 mg every week by subcutaneous route. 02/28/2024 completed Mounjaro 2.5 mg/0.5 mL subcutaneous pen injector Inject 2.5 mg every week by subcutaneous route for 30 days. 02/19/2024 active EpiPen 2-Matias 0.3 mg/0.3 mL injection, auto-injector INJECT MEENA FOR BEESTING 05/13/2023 active lorazepam 1 mg tablet TAKE 1 TABLET BY MOUTH 30 MINUTES PRIOR TO FLIGHT- REPEAT IF NEEDED AT TIME OF FLIGHT 05/13/2023 active prednisone 20 mg tablet Take 1 tablet every day by oral route for 7 days. 05/13/2023 active benzonatate (TESSALON) 200 MG capsule Take 1 capsule (200 mg total) by mouth 3 (three) times a day as needed for cough. 03/03/2023 active fluticasone (FloNASE) 50 mcg/spray nasal spray 1 spray into each nostril daily. 03/03/2023 active proMETHAZINE-dextrome thorphan (proMETHAZINE-DM) 6.25-15 MG/5ML syrup Take 5 mL by mouth every 4 (four) hours as needed for cough. 03/03/2023 active azithromycin 500 mg tablet take 1 tablet (500 mg) by oral route once daily For 5 days (will continue to work for 10 days) 03/04/2022 3 completed hydrocodone 10 mg-chlorpheniramine 8 mg/5 mL oral susp extend.rel 12hr take 5 milliliters by oral route every 12 hours as needed for cough 03/04/2022 3 completed cyclobenzaprine 10 mg tablet take 1 tablet (10 mg) by oral route 3 times per day prn muscle pain 07/09/2021 3 completed pravastatin 20 mg tablet TAKE ONE TABLET BY MOUTH EVERY DAY 03/28/2021 2 completed Mucinex 1,200 mg tablet, extended release Take 1 tablet twice daily with plenty of water as needed for cough. 03/12/2021 1 completed polymyxin B sulfate 10,000 unit-trimethoprim 1 mg/mL eye drops instill 1 drop into affected eye by ophthalmic 4 times daily for 5 days. 09/01/2020 2 completed Tessalon Perles 100 mg capsule Take 1 Capsule Oral THREE TIMES DAILY for 10 days. 01/22/2019 9 completed doxycycline hyclate 100 mg capsule Take 1 Capsule ORAL twice daily for 7 days. 01/22/2019 9 completed fluorouraciL (EFUDEX) 5 % cream 02/13/2018 5 aborted calcipotriene (DOVONEX) 0.005 % cream 02/12/2018 active spironolactone (ALDACTONE) 25 mg tablet 12/04/2017 active lisinopril (PRINIVIL,ZESTRIL) 40 mg tablet 12/03/2017 active LORazepam (ATIVAN) 1 mg tablet 10/21/2017 5 active lisinopril 40 mg tablet Changed to 20 mils daily (1/2 tablet) 10/21/2017 4 completed cholecalciferol (vitamin D3) 50 mcg (2,000 unit) capsule Take 1 Capsule ORAL daily. 02/24/2017 active tramadol 50 mg tablet Take Tablet ORAL . 07/23/2016 7 completed Anusol-HC 2.5 % topical cream with perineal applicator Take apply Cream Rectal twice daily. as needed for anal irritation as directed 10/04/2015 8 completed alprazolam Take 1-2 Tablet ORAL 1 hour before flight. 12/05/2014 6 completed Bystolic Take 1 Tablet ORAL DAILY. 03/05/2013 7 completed Diovan HCT Take 1 ORAL daily. 03/13/2010 0 completed fluoxetine Take 1 Tablet ORAL daily. 09/08/2009 0 completed Hyzaar Take 1 Tablet oral qd. 07/10/2009 0 completed Tylenol-Codeine #3 Take 1-2 ORAL q4h as needed. 02/08/2009 0 completed metoprolol tartrate Take 1 Tablet ORAL twice daily. 11/05/2008 0 completed Fish Oil Extra Strength Viva Naturals take 2 soft gels = EPA 1400 mg & DHA 480 mg (GNC Triple Strength is good also ) 06/19/2007 5 completed Tussionex Pennkinetic ER USE 1/2 TO 1 TSP EVERY 8-12 HR PRN; SEVERE COUGH ONLY. MAX. 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 5 active benzonatate 200 mg capsule TAKE 1 CAPSULE BY MOUTH THREE TIMES A DAY NEEDED FOR COUGH 4 completed fluticasone propionate 50 mcg/actuation nasal spray,suspension SPRAY 1 SPRAY INTO EACH NOSTRIL EVERY DAY 4 completed prednisone 50 mg tablet TAKE ONE TABLET BY MOUTH EVERY DAY FOR 5 DAYS WITH A MEAL 4 completed promethazine-DM 6.25 mg-15 mg/5 mL oral syrup TAKE 5 ML BY MOUTH EVERY 4 (FOUR) HOURS NEEDED FOR COUGH 4 completed Mounjaro 2.5 mg/0.5 mL subcutaneous pen injector active prednisone 20 mg tablet active EpiPen 2-Matias 0.3 mg/0.3 mL injection, auto-injector active lorazepam 1 mg tablet active aspirin 81 mg tablet,delayed release 1 {tbl} by oral route. active betamethasone dipropionate 0.05 % topical cream APPLT A THIN LAYER TO THE AFFECTED AREA TWO TIMES A DAY AVOID AXILLARY AREA, DACE AND GROIN active epinephrine 0.3 mg/0.3 mL injection, auto-injector INJECT SOON POSSIBLE FOR BEESTING active lisinopril 20 mg tablet TAKE ONE TABLET BY MOUTH EVERY DAY active nebivolol 20 mg tablet TAKE ONE TABLET BY MOUTH EVERY DAY active pravastatin 40 mg tablet TAKE ONE TABLET BY MOUTH EVERY DAY active spironolactone 25 mg tablet TAKE ONE TABLET BY MOUTH EVERY DAY active aspirin 81 mg EC tablet Take 1 tablet (81 mg total) by mouth 1 (one) time each day. active ASPIRIN 81 PO Take by mouth. act andrea cholecalciferol (VITAMIN D-3) 25 mcg (1,000 unit) tablet Take 1 tablet (1,000 Units total) by mouth 1 (one) time each day. active lisinopril (PRINIVIL,ZeSTRIL) 40 MG tablet Take 40 mg by mouth daily. active nebivolol (BYSTOLIC) 20 MG tablet Take 20 mg by mouth daily. active nebivoloL (BYSTOLIC) 20 mg tablet Take 1 tablet (20 mg total) by mouth 1 (one) time each day. active pravastatin (PRAVACHOL) 20 mg tablet Take 1 tablet (20 mg total) by mouth 1 (one) time each day. active pravastatin (PRAVACHOL) 40 MG tablet Take 40 mg by mouth daily. active spironolactone (ALDACTONE) 25 MG tablet Take 25 mg by mouth daily. active Allergies Allergen Reaction Severity Comment Documented Date Source Statu s BEE VENOM PROTEIN (HONEY BEE) ANAPHYLAXIS ENS_GRANBYCT Problems Problem Status Onset Date Problem Type Date of Resolution Source Low serum HDL active 2019-04-26 Problem[address] [facility]_T HSFRAN Coronary artery disease involving [place] coronary artery of [place] heart without angina pectoris active 2019-04-26 ProblemAct [facility]_THSFRAN Kidney failure active 2017-06-02 ProblemAct [place]_ THSFRAN Chest discomfort active 2019-04-26 ProblemAct C T_THSFRAN Chronic kidney disease (CKD), stage III (moderate) active 2019-04-26 ProblemAct [facility]_THSFRAN Chest pain active 2019-04-26 ProblemAct [facility]_THSF RAN [place] coronary artery calcium score between 100 and 199 active 2019-04-26 ProblemAct [facility]_THSFR AN Essential hypertension, benign active 2019-04-26 ProblemAct [facility]_THSF RAN Elevated hemoglobin A1c active 2024-02-19 ProblemAct [facility]_THSFRAN Mixed hyperlipidemia active 2019-04-26 ProblemAct [facility]_THSFRAN Class 1 obesity due to excess calories with serious comorbidity and body mass index (BMI) of 32.0 to 32.9 in adult active 2024-01-21 ProblemAct [facility]_THSFRAN Right-sided thoracic back pain active 2018-02-17 ProblemAct [facility]_THSFRAN Chronic anal fissure active ProblemAct ENS_RENETTABYC T Congenital renal cyst active ProblemAct ENS_RENETTABYC T History of nephrectomy active 2020-07-17 ProblemAct ENS_RENETTABYC T Fear of flying active ProblemAct ENS_ RENETTABYC T Excessive cerumen in ear canal active 2024-06-01 ProblemAct ENS_RENETTABYC T Poisoning due to sting of bee active ProblemAct ENS_RENETTABYC T Primary malignant neoplasm of left kidney active ProblemAct ENS_RENETTABYC T Proteinuria active 2020-07-17 ProblemAct ENS_GR ANBYC T Metabolic syndrome X active 2020-07-17 ProblemAct ENS_RENETTABYC T Sebaceous hyperplasia active 2024-02-19 ProblemAct ENS_RENETTABYC T Hydrocele of testis active ProblemAct ENS_RENETTABYC T Bilateral eye astigmatism active ProblemAct ENS_RENETTABYC T Essential hypertension active 2023-05-10 ProblemAct ENS_RENETTABYC T Hypertensive renal disease active 2024-05-31 ProblemAct ENS_RENETTABYC T Lumbosacral radiculopathy active ProblemAct ENS_RENETTABYC T Impaired fasting glycemia active 2024-06-01 ProblemAct ENS_RENETTABYC T Pruritus ani active ProblemAct ENS_GR ANBYC T Presbyopia active ProblemAct ENS_GRAN BYC T Pain of left shoulder joint active 2023-05-13 ProblemAct ENS_RENETTABYC T Body mass index 30+ - obesity active ProblemAct ENS_RENETTABYC T Vitamin D deficiency active ProblemAct ENS_RENETTABYC T Mixed hyperlipidemia active 2005-11-05 ProblemAct ENS_RENETTABYC T COVID-19 active EncounterDiagnosisAct [facility] Acute cough active EncounterDiagnosisAct [facility] Immunizations Vaccine Date Source Lot Number Status Fluzone High-Dose Triv 2024 (PF) 180 mcg/0.5 mL IM syringe 12/27/2023 ENS_GRANBYCT [id number] comple florentin Prevnar 20 (PF) 0.5 mL intra muscular syringe 05/13/2023 ENS_GRANBYCT [id number] completed zoster vaccine subunit 04/12/2022 ENS_GRANBYCT [id number] completed influenza, seasonal, injectable 12/25/2021 E[facility]_GRANBYCT completed SARS-COV-2 (COVID-19) vaccin e, UNSPECIFIED 12/25/2021 ENS_GRANBYCT completed tetanus toxoid, reduced diph theria toxoid, and acellular pertussis vaccine, adsorbed 03/28/2021 ENS_GRANBYCT [id number] completed zoster vaccine subunit 03/28/2021 E[facility]_GR[facility]CT [id number] completed influenza, seasonal, injectable 12/10/2020 E[facility]GRANBYCT completed SARS-COV-2 (COVID-19) vaccin e, UNSPECIFIED 12/10/2020 E[facility]GRANBYCT completed SARS-COV-2 (COVID-19) vaccin e, mRNA, spike protein, LNP, preservative free, 30 mcg/0.3mL dose 05/11/2020 ENS_GRANBYCT [id number] completed SARS-COV-2 (COVID-19) vaccin e, UNSPECIFIED 05/11/2020 E[facility]_GRANBYCT completed SARS-COV-2 (COVID-19) vaccin e, mRNA, spike protein, LNP, preservative free, 30 mcg/0.3mL dose 04/18/2020 ENS_GRANBYCT [id number] completed SARS-COV-2 (COVID-19) vaccin e, UNSPECIFIED 04/18/2020 E[facility]_GRANBYCT completed influenza, seasonal, injectable 12/12/2019 E[facility]GR[facility]BY[facility] completed influenza, seasonal, injectable 01/11/2019 ENS_GRANBYCT completed influenza, seasonal, injectable 01/10/2019 ENS_GRANBYCT completed zoster vaccine, live 03/02/2018 ENS_GRANBYCT co mpleted influenza, high dose seasona l, preservative-free 12/22/2017 E[facility]_GRANBYCT completed influenza, seasonal, injectable 12/22/2017 E[facility]_GRANBYCT completed tetanus and diphtheria toxoi ds, adsorbed, preservative free, for adult use 02/24/2017 E[facility]_GRANBYCT completed influenza, high dose seasona l, preservative-free 12/21/2016 [facility] completed influenza, seasonal, injectable 12/14/2016 [facility] completed influenza, high dose seasona l, preservative-free 12/27/2015 [facility] completed influenza, seasonal, injectable 12/16/2015 [facility] completed influenza, seasonal, injectable 12/27/2014 [facility] completed influenza, high dose seasona l, preservative-free 12/15/2012 E[facility]_GRANBYCT completed tetanus toxoid, reduced diph theria toxoid, and acellular pertussis vaccine, adsorbed 12/29/2006 ENS_GRANBYCT completed Encounters Encounter Type Encounter Reason Primary Diagnosis Location Date Ambulatory [facility] 10/20/2024 Ambulatory [facility] 09/13/2024 Ambulatory [facility] 06/01/2024 Ambulatory Abnormal findings on diagnostic imaging of heart and coronary circulation Abnormal findings on diagnostic imaging of heart and coronary circulation [facility] 04/15/2024 Ambulatory Abnormal findings on diagnostic imaging of heart and coronary circulation Abnormal findings on diagnostic imaging of heart and coronary circulation [facility] 03/29/2024 Ambulatory [facility] 03/24/2024 [facility] 03/11/2024 Ambulatory Abnormal findings on diagnostic imaging of heart and coronary circulation Abnormal findings on diagnostic imaging of heart and coronary circulation [facility] 03/01/2024 Ambulatory Abnormal findings on diagnostic imaging of heart and coronary circulation Abnormal findings on diagnostic imaging of heart and coronary circulation [facility] 02/19/2024 Ambulatory [facility] 02/19/2024 Ambulatory [facility] 02/19/2024 Ambulatory [facility] 12/26/2023 Ambulatory [facility] 11/02/2023 [facility] 05[facility]15/2023 Ambulatory [facility] 05[facility]14/2023 Ambulatory [facility] 05[facility]14/2023 Ambulatory [facility] 04/01/2023 Ambulatory [facility] 03/31/2023 Ambulatory [facility], [facility] 03/31/2023 Ambulatory COVID-19 COVID-19 [employer] [employer] [facility] [employer] 03/03/2023 Ambulatory [facility], [facility] 11/07/2022 Care Team Organization Name Specialty Phone Email Start Date End [facility] te [facility] 10/23/2024 [facility] Ady Barroso MD Primary Care 05/26/2024 [facility] Ady Barroso MD Primary Care 02/23/2024 [facility] Ady Barroso MD Primary Care 02/20/2024 [facility], [facility] 03/31/2023 [employer] 03/03/2023 06/02/2024 [employer] 03/03/2023 03/03/2023 [employer] NO PCP Primary Care 03/03/2023 03/03/2023
--- OUTSIDE RECORDS SUMMARY | 2025-01-18 07:55 | XMS_ITS | Clinical Summary ---
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 10 g 02/11/2018 Active Active Problems No known active problems Social History Tobacco Use Types Packs/Day Years Used Date Smoking Tobacco: Never Assessed Sex and Gender Information Value Date Recorded Sex Assigned at Not on file Legal Sex Male 3:57 AM EST Gender Identity Not on file Sexual Orientation Not on file Plan of Treatment Health Maintenance Due Date Last Done Comments CT Colonography 1957 Colonoscopy 1957 Colorectal Cancer Screening 1957 FIT-DNA (Cologuard) 1957 FIT 1957 FOBT 1957 Flex Sigmoidoscopy - 5y 1957 HIV Screening 1957 DTaP,Tdap,and Td Vaccines (1 - Tdap) 11/26/1975 Pneumococcal Vaccine, 50+ Ye ars (1 of 1 - PCV) 11/26/2007 Zoster Vaccines (1 of 2) 11/26/2007 COVID-19 Vaccine (2023-2 5 season) 2024 Influenza Vaccine (#1) 2024 HPV Vaccines Aged Out No longer eligi ble based on patient's age to complete this topic Hepatitis A Vaccines Aged Out No long er eligible based on patient's age to complete this topic MMR Vaccines Aged Out No longer eligi ble based on patient's age to complete this topic Meningococcal Vaccine Aged Out No shakila ricky eligible based on patient's age to complete this topic Insurance HMO NON PAR Care Teams Oil [employer] Roughneck Relationship Specialty Start Date End Date Ady Barroso MD [address] [place] [phone] PCP - General 05/14/17
--- OUTSIDE RECORDS SUMMARY | 2025-01-18 07:55 | XMS_ITS | Clinical Summary ---
Author Organization [facility] Address [address] [address] Phone Care Team Providers Care Mineral Economist Name Role Phone Ady Barroso MD Primary Care Provider [phone] Allergies No known active allergies Medications aspirin (ST FABRICIO) 81 MG EC tablet Take 1 tablet by mouth 1 (one) time each day Active EPINEPHrine (EPIPEN) 0.3 MG/0.3ML injection syringe as directed Active spironolactone (ALDACTONE) 25 MG tablet TAKE ONE TABLET BY MOUTH ONCE A DAY 90 tablet 3 10/02/2023 Active lisinopril 20 MG tablet TAKE ONE TABLET BY MOUTH EVERY DAY 90 tablet 3 03/23/2024 Active nebivolol (BYSTOLIC) 20 MG tablet TAKE ONE TABLET BY MOUTH EVERY DAY 90 tablet 4 03/23/2024 Active pravastatin (PRAVACHOL) 40 MG tablet TAKE ONE TABLET BY MOUTH EVERY DAY 90 tablet 3 03/23/2024 Active Active Problems Problem Noted Date Diagnosed Date Stage 3b chronic kidney disease 07/17/2020 History of nephrectomy 07/17/2020 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 > 07/17/2020 Localized edema 07/17/2020 Proteinuria, not otherwise specified 07/17/2020 Dyslipidemia 07/17/2020 Metabolic syndrome 07/17/2020 Hypertension 07/14/2020 Resolved Problems Problem Noted Date Diagnosed Date Resolved Date Anemia in chronic kidney disease 07/14/2020 07/17/2020 Ascites 07/14/2020 07/17/2020 Chronic kidney disease stage 4 07/14/2020 07/17/2020 Cor pulmonale 07/14/2020 07/17/2020 Edema 07/14/2020 07/17/2020 Heart failure 07/14/2020 07/17/2020 Hyperparathyroidism due to r enal insufficiency 07/14/2020 07/17/2020 Acute nontraumatic kidney injury 07/14/2020 07/17/2020 Lipoprotein below reference range 04/26/2019 07/17/2020 Mixed hyperlipidemia 04/26/2019 021 Coronary atherosclerosis 04/26/201905/2020 Thoracic back pain 02/17/2018 Encounters Date Type Department Care Team Description 01/11/2025 Orders Only [facility] [address] [place] [phone] Kai Whitehead MD from Last 3 Months Immunizations Immunization Administration Dates Next Due Influenza Split High Dose Preservative Free IM 12/22/2017,12/21/2016,12/27/2015,2012 Influenza TIV (IM) 01/11/2019 Pfizer SARS-COV-2 05/11/2020,04/18/2020 Family History Medical History Relation Comments Cancer Father lung cancer Hypertension Father Stroke Father Hypertension Mother Diabetes Sibling 1 brother Hypertension Sibling 2 siblings Relation Status Comments Father Mother Alive Sibling 1 Sibling 2 Social History Tobacco Use Types Packs/Day Years Used Date Smoking Tobacco: Never Smokeless Tobacco: Never Alcohol Use Standard Drinks/Week Comments Yes 0 (1 standard drink = 0.6 oz pure alcohol) Alcoholic Drinks/day: Occasional social drink Sex and Gender Information Value Date Recorded Sex Assigned at Not on file Legal Sex Male 5:06 PM EST Gender Identity Not on file Sexual Orientation Not on file Last Filed Vital Signs Vital Sign Reading Time Taken Comments Blood Pressure 122/80 07/20/2024 8:15 AM EDT Pulse 66 07/20/2024 8:15 AM EDT Temperature - - Respiratory Rate - - Oxygen Saturation 98% 07/20/2024 8:15 AM EDT Inhaled Oxygen Concentration - - Weight 90 kg (198 lb 6.4 oz) 07/20/2024 8:15 AM EDT Height 172.7 cm (5' 8 ) 07/17/2023 10:31 AM EDT Body Mass Index 30.17 07/17/2023 10:31 AM EDT Plan of Treatment Upcoming Encounters Date Type Department Care Team (Late st Contact Info) Description 01/20/2025 Orders Only [facility] [address] [phone] Kai Whitehead MD [facility] [address] [phone] Stage 3b chronic kidney disease (HCC); Hypertension; History of nephrectomy; Dyslipidemia; 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> (HCC); Localized edema; Metabolic syndrome; Proteinuria, not otherwise specified 01/20/2025 8:00 AM EST Office Visit [facility] [address] [phone] Kai Whitehead MD [facility] [address] [phone] Health Maintenance Due Date Last Done Comments Pneumococcal Vaccine: 50+ Years (1 of 2 - PCV) 1976 Colorectal Cancer Screening: Annual FOBT 2006 Colorectal Cancer Screening: Colonoscopy 2006 Colorectal Cancer Screening: Sigmoidoscopy 2006 Influenza Vaccine (#1) 2024 4, 01/11/2019, 12/22/2017, Additional history exists Hepatitis B Vaccine Aged Out No longe r eligible based on patient's age to complete this topic Procedures Procedure Name Priority Date/Time Associated Diagnosis Comments PROTEIN / CREATININE RATIO, URINE Routine 01/11/2025 10:07 AM EDT HEMOGLOBIN A1C Routine 01/11/2025 10:07 AM EDT PSA, TOTAL AND FREE Routine 01/11/2025 1 0:07 AM EDT VITAMIN D 25 HYDROXY Routine 01/11/2025 10:07 AM EDT CBC AND DIFFERENTIAL Routine 01/11/2025 10:07 AM EDT COMPREHENSIVE METABOLIC PANEL Routine 01/11/2025 10:07 AM EDT URIC ACID Routine 01/11/2025 10:07 AM EDT PHOSPHATE ( PHOSPHORUS) Routine 01/11/2025 10:07 AM EDT MAGNESIUM Routine 01/11/2025 10:07 AM EDT LIPID PANEL Routine 01/11/2025 10:07 AM EDT PTH, INTACT AND CALCIUM Routine 01/11/2025 10:07 AM EDT from Last 3 Months Results * PTH, Intact and Calcium (01/11/2025 10:07 AM EDT) Parathyroid Hormone, Intact 39 16 - 77 pg/mL [facility] Comment: Interpretive Guide Intact PTH Calcium ------- Normal Parathyroid Normal Normal Hypoparathyroidism Low or Low Normal Low Hyperparathyroidism Primary Normal or High High Secondary High Normal or Low Tertiary High High Non-Parathyroid Hypercalcemia Low or Low Normal High Calcium 9.8 8.6 - 10.3 mg/dL [facility] 01/11/2025 10:0 7 AM EDT 01/11/2025 10:12 AM EDT Narrative [facility] - 01/12/2025 12:56 PM EDT FASTING:YES FASTING: YES Resulting Agency Comment Performing Organization Information: Site ID: [id number] Name: [facility] Address: [address] [place] [phone] Director: Skyler Nunes us Kai Whitehead MD LAB BLOOD ORDERABLES Final Re sult Pin digitalL [facility] [address] [place] [phone] * Protein, Total, Random Urine w/Creatinine (Protein/Creat Ratio) (01/11/2025 10:07 AM EDT) Creatinine, Ur 115 20 - 320 mg/dL [facility] Urine Protein/Creati nine Ratio 43 25 - 148 mg/g creat [facility] Protein/Creati nine Ratio, Urine 0.043 0.025 - 0.148 mg/mg creat [facility] Protein Urine Random 5 5 - 25 mg/dL [facility] 01/11/2025 10:0 7 AM EDT 01/11/2025 10:12 AM EDT Narrative [facility] - 01/12/2025 12:56 PM EDT FASTING:YES FASTING: YES Resulting Agency Comment Performing Organization Information: Site ID: [id number] Name: [facility] Address: [address] [place] [phone] Director: Skyler Nunes us Kai Whitehead MD LAB URINE ORDERABLES Final Re sult Pin digitalL [facility] [address] [place] [phone] * Vitamin D 25 Hydroxy (01/11/2025 10:07 AM EDT) Vitamin D, 25-OH, Total, IA 50 30 - 100 ng/mL [facility] [place] [facility] Comment: Vitamin D Status 25-OH Vitamin D: Deficiency: <20 ng/mL Insufficiency: 20 - 29 ng/mL Optimal: > or = 30 ng/mL For 25-OH Vitamin D testing on patients on D2-supplementation and patients for whom quantitation of D2 and D3 fractions is required, the QuestAssureD(TM) 25-OH VIT D, (D2,D3), LC/MS/MS is recommended: order code 75245 (patients >2yrs). See Note 1 Note 1 For additional information, please refer to http://education.CashSentinel.Material Mix/faq/GDP218 (This link is being provided for informational/ educational purposes only.) 01/11/2025 10:0 7 AM EDT 01/11/2025 10:12 AM EDT Narrative [facility] - 01/12/2025 12:56 PM EDT FASTING:YES FASTING: YES Resulting Agency Comment Performing Organization Information: Site ID: [id number] Name: [facility] Address: [address] [place] [phone] Director: Skyler Nunes us Kai Whitehead MD LAB BLOOD ORDERABLES Final Re sult [facility] [address] [place] [phone] * CBC and Differential (01/11/2025 10:07 AM EDT) WBC 6.9 3.8 - 10.8 Thousand /uL [facility] RBC 5.06 4.20 - 5.80 Million/ uL [facility] [place] [facility] Hemoglobin 14.4 13.2 - 17.1 g/dL [facility] Hematocrit 44.6 38.5 - 50.0 % [facility] MCV 88.1 80.0 - 100.0 fL [facility] MCH 28.5 27.0 - 33.0 pg [facility] MCHC 32.3 32.0 - 36.0 g/dL [facility] Comment: For adults, a slight decrease in the calculated MCHC value (in the range of 30 to 32 g/dL) is most likely not clinically significant; however, it should be interpreted with caution in correlation with other red cell parameters and the patient's clinical condition. RDW 13.7 11.0 - 15.0 % [facility] Platelets 322 140 - 400 Thousand /uL [facility] MPV 9.4 7.5 - 12.5 fL [facility] Neutrophils Absolute 4,340 1,500 - 7,800 cells/uL [facility] Band Neutrophils Absolute, Manual Count CANCELED 0 - 750 cells/uL [facility] Comment:Result canceled by t he ancillary. Metamyelocytes Absolute CANCELED 0 cells/uL [facility] Comment:Result canceled by t he ancillary. Absolute Myelocytes CANCELED 0 cells/uL [facility] Comment:Result canceled by t he ancillary. Absolute Promyelocytes CANCELED 0 cells/uL [facility] Comment:Result canceled by t he ancillary. Lymphocytes Absolute 1,725 850 - 3,900 cells/uL [facility] Monocytes Absolute 745 200 - 950 cells/uL [facility] Eosinophils Absolute 48 15 - 500 cells/uL [facility] [place] [facility] Basophils Absolute 41 0 - 200 cells/uL [facility] [place] [facility] Blasts Absolute CANCELED 0 cells/uL [facility] Comment:Result canceled by t he ancillary. NRBC Absolute CANCELED 0 cells/uL [facility] [place] [facility] Comment:Result canceled by t he ancillary. Neutrophils Relative 62.9 % [facility] Bands Absolute CANCELED % [facility] Comment:Result canceled by t he ancillary. Metamyelocytes Percent CANCELED % [facility] Comment:Result canceled by t he ancillary. Myelocytes Relative CANCELED % [facility] Comment:Result canceled by t he ancillary. Promyelocytes Relative CANCELED % [facility] Comment:Result canceled by t he ancillary. Lymphocytes 25.0 % [facility] Variant lymphocytes/100 WBC (Bld) CANCELED 0 - 10 % [facility] Comment:Result canceled by t he ancillary. Monocytes 10.8 % [facility] Eosinophils 0.7 % [facility] [place] [facility] Basophils Relative 0.6 % [facility] [place] [facility] Blasts CANCELED % [facility] Comment:Result canceled by t he ancillary. nRBC CANCELED 0 /100 WBC [facility] Comment:Result canceled by t he ancillary. Comment(s) CANCELED [facility] Comment:Result canceled by t he ancillary. 01/11/2025 10:0 7 AM EDT 01/11/2025 10:12 AM EDT Narrative [facility] - 01/12/2025 12:56 PM EDT FASTING:YES FASTING: YES Resulting Agency Comment Performing Organization Information: Site ID: [id number] Name: [facility] Address: [address] [place] [phone] Director: Skyler Nunes us Kai Whitehead MD LAB BLOOD ORDERABLES Final Re sult [facility] [address] [place] [phone] * (ABNORMAL) PSA, total and free (01/11/2025 10:07 AM EDT) PSA 1.3 < OR = 4.0 ng/mL [facility] PSA, Free 0.3 ng/mL [facility] [place] [facility] PSA Free Percent 23(L) >25 % (calc) [facility] Comment: PSA(ng/mL) Free PSA(%) Estimated(x) Probability of Cancer(as%) 0-2.5 (*) Approx. 1 2.6-4.0(1) 0-27(2) 24(3) 4.1-10(4) 0-10 56 11-15 28 16-20 20 21-25 16 >or =26 8 >10(+) N/A >50 References:(1)Aquiles et al.:Urology 60: 469-474 (2002) (2)Aquiles et al.:J.Urol 168: 922-925 (2002) Free PSA(%) Sensitivity(%) Specificity(%) < or = 25 85 19 < or = 30 93 9 (3)Aquiles et al.:CUONG 277: 5500-2917 (1997) (4)Aquiles et al.:CUONG 279: 9146-3309 (1998) (x)These estimates vary with age, ethnicity, family history and MIGUEL ANGEL results. (*)The diagnostic usefulness of % Free PSA has not been established in patients with total PSA below 2.6 ng/mL (+)In men with PSA above 10 ng/mL, prostate cancer risk is determined by total PSA alone. The Total PSA value from this assay system is standardized against the equimolar PSA standard. The test result will be approximately 20% higher when compared to the WHO-standardized Total PSA (Siemens assay). Comparison of serial PSA results should be interpreted with this fact in mind. PSA was performed using the Agus Tali Immunoassay method. Values obtained from different assay methods cannot be used interchangeably. PSA levels, regardless of value, should not be interpreted as absolute evidence of the presence or absence of disease. 01/11/2025 10:0 7 AM EDT 01/11/2025 10:12 AM EDT Narrative [facility] - 01/12/2025 12:56 PM EDT FASTING:YES FASTING: YES Resulting Agency Comment Performing Organization Information: Site ID: [id number] Name: [facility] Address: [address] [place] [phone] Director: Skyler Nunes Kai Whitehead MD LAB BLOOD ORDERABLES Final Re sult [facility] [place] [facility] [address] [place] [phone] * Uric Acid (01/11/2025 10:07 AM EDT) Uric Acid 6.9 4.0 - 8.0 mg/dL [facility] Comment: Therapeutic target for gout patients: <6.0 mg/dL 01/11/2025 10:0 7 AM EDT 01/11/2025 10:12 AM EDT Narrative [facility] - 01/12/2025 12:56 PM EDT FASTING:YES FASTING: YES Resulting Agency Comment Performing Organization Information: Site ID: [id number] Name: [facility] [place] [facility] Address: [address] [place] [phone] Director: Skyler Nunes Kai Whitehead MD LAB BLOOD ORDERABLES Final Re sult Performing Organization Address [facility] de Phone Number [facility] [address] [place] [phone] * Phosphorus (01/11/2025 10:07 AM EDT) Phosphorus 3.8 2.1 - 4.3 mg/dL [facility] 01/11/2025 10:0 7 AM EDT 01/11/2025 10:12 AM EDT Narrative [facility] - 01/12/2025 12:56 PM EDT FASTING:YES FASTING: YES Resulting Agency Comment Performing Organization Information: Site ID: [id number] Name: [facility] [place] [facility] Address: [address] [place] [phone] Director: Skyler Nunes Kai Whitehead MD LAB BLOOD ORDERABLES Final Re sult Performing Organization Address [facility] de Phone Number Pin digitalL [facility] [address] [place] [phone] * Magnesium (01/11/2025 10:07 AM EDT) Magnesium 2.0 1.5 - 2.5 mg/dL [facility] 01/11/2025 10:0 7 AM EDT 01/11/2025 10:12 AM EDT Narrative [facility] - 01/12/2025 12:56 PM EDT FASTING:YES FASTING: YES Resulting Agency Comment Performing Organization Information: Site ID: [id number] Name: [facility] Address: [address] [place] [phone] Director: Skyler Nunes Kai Whitehead MD LAB BLOOD ORDERABLES Final Re sult Performing Organization Address [facility] Co de Phone Number [facility] [place] [facility] [address] [place] [phone] * (ABNORMAL) Hemoglobin A1c (01/11/2025 10:07 AM EDT) Hemoglobin A1C 5.8(H) <5.7 % [facility] [place] [facility] Comment: For someone without known diabetes, a hemoglobin A1c value between 5.7% and 6.4% is consistent with prediabetes and should be confirmed with a follow-up test. For someone with known diabetes, a value <7% indicates that their diabetes is well controlled. A1c targets should be individualized based on duration of diabetes, age, comorbid conditions, and other considerations. This assay result is consistent with an increased risk of diabetes. Currently, no consensus exists regarding use of hemoglobin A1c for diagnosis of diabetes for children. 01/11/2025 10:0 7 AM EDT 01/11/2025 10:12 AM EDT Narrative [facility] 01/12/2025 12:56 PM EDT FASTING:YES FASTING: YES Resulting Agency Comment Performing Organization Information: Site ID: [id number] Name: [facility] [place] [facility] Address: [address] [place] [phone] Director: Skyler Nunes Kai Whitehead MD LAB BLOOD ORDERABLES Final Re sult Performing Organization Address [facility] Co de Phone Number Pin digital[facility] [place] [facility] [address] [place] [phone] * Lipid panel (01/11/2025 10:07 AM EDT) Cholesterol 148 <200 mg/dL [facility] [place] [facility] HDL 45 > OR = 40 mg/dL [facility] [place] [facility] Triglycerides 131 <150 mg/dL [facility] [place] [facility] LDL Direct 80 mg/dL (calc) [facility] [place] [facility] Comment: Reference range: <100 Desirable range <100 mg/dL for primary prevention; <70 mg/dL for patients with CHD or diabetic patients with > or = 2 CHD risk factors. LDL-C is now calculated using the Tia calculation, which is a validated novel method providing better accuracy than the Friedewald equation in the estimation of LDL-C. Brandon RIBERA et al. CUONG. 2013;310(19): 7325-8752 (http://Zomato.NXT-ID/faq/ZET923) Chol/HDL Ratio 3.3 <5.0 (calc) [facility] Non HDL Cholesterol 103 <130 mg/dL (calc) [facility] [place] [facility] Comment: For patients with diabetes plus 1 major ASCVD risk factor, treating to a non-HDL-C goal of <100 mg/dL (LDL-C of <70 mg/dL) is considered a therapeutic option. 01/11/2025 10:0 7 AM EDT 01/11/2025 10:12 AM EDT Narrative [facility] - 01/12/2025 12:56 PM EDT FASTING:YES FASTING: YES Resulting Agency Comment Performing Organization Information: Site ID: [id number] Name: [facility] [place] [facility] Address: [address] [place] [phone] Director: Skyler Nunes Kai Whitehead MD LAB BLOOD ORDERABLES Final Re sult Pin digitalL [facility] [place] [facility] [address] [place] [phone] * (ABNORMAL) Comprehensive Metabolic Panel (01/11/2025 10:07 AM EDT) Glucose 99 65 - 99 mg/dL [facility] [place] [facility] Comment: Fasting reference interval BUN 22 7 - 25 mg/dL [facility] [place] [facility] Creatinine 1.23 0.70 - 1.35 mg/dL [facility] [place] [facility] eGFR CKD-EPI CR 2020 64 > OR = 60 mL/min/1. 73m2 [facility] [place] [facility] BUN/Creatinine Ratio SEE NOTE: 6 - 22 (calc) [facility] [place] [facility] Comment: Not Reported: BUN and Creatinine are within reference range. Sodium 133(L) 135 - 146 mmol/L [facility] Potassium 5.2 3.5 - 5.3 mmol/L [facility] Chloride 100 98 - 110 mmol/L [facility] Bicarbonate (CO2) 28 20 - 32 mmol/L [facility] Calcium 9.8 8.6 - 10.3 mg/dL [facility] Total Protein 7.5 6.1 - 8.1 g/dL [facility] Albumin 4.7 3.6 - 5.1 g/dL [facility] Globulin, Total 2.8 1.9 - 3.7 g/dL (calc) [facility] A/G Ratio 1.7 1.0 - 2.5 (calc) [facility] Total Bilirubin 0.6 0.2 - 1.2 mg/dL [facility] Alkaline Phosphatase 63 35 - 144 U/L [facility] AST (SGOT) 17 10 - 35 U/L [facility] ALT (SGPT) 23 9 - 46 U/L [facility] 01/11/2025 10:0 7 AM EDT 01/11/2025 10:12 AM EDT Narrative [facility] - 01/12/2025 12:56 PM EDT FASTING:YES FASTING: YES Resulting Agency Comment Performing Organization Information: Site ID: [id number] Name: [facility] [place] [facility] Address: [address] [place] [phone] Director: Skyler Nunes us Kai Whitehead MD LAB BLOOD ORDERABLES Final Re sult [facility] [place] [facility] [address] [place] [phone] from Last 3 Months Care Teams Mineral Economist Relationship Specialty Start Date End Date Ady Barroso MD [address] [place] [phone] PCP - General Family Medicine 01/20/24
--- OUTSIDE RECORDS SUMMARY | 2025-01-18 07:55 | XMS_ITS | Clinical Summary ---
Author Organization [facility] Address [address] [place] [address] Care Team Providers Care Metal Fabricator Welder Name Role Phone Pcp, No Primary Care Provider Unavailabl e Allergies No known active allergies Medications nebivolol (BYSTOLIC) 20 MG tablet Take 20 mg by mouth daily. Active spironolactone (ALDACTONE) 25 MG tablet Take 25 mg by mouth daily. Active pravastatin (PRAVACHOL) 40 MG tablet Take 40 mg by mouth daily. Active lisinopril (PRINIVIL,ZeSTR IL) 40 MG tablet Take 40 mg by mouth daily. Active ASPIRIN 81 PO Take by mouth. Active benzonatate (TESSALON) 200 MG capsuleIndicati ons:Acute cough Take 1 capsule (200 mg total) by mouth 3 (three) times a day as needed for cough. 21 capsule 03/03/2023 Active fluticasone (FloNASE) 50 mcg/spray nasal sprayIndication s:COVID-19 1 spray into each nostril daily. 1 each 03/03/2023 Active proMETHAZINE-de xtromethorphan (proMETHAZINE-D M) 6.25-15 MG/5ML syrupIndication s:COVID-19 Take 5 mL by mouth every 4 (four) hours as needed for cough. 120 mL 03/03/2023 Active Active Problems No known active problems Social History Tobacco Use Types Packs/Day Years Used Date Smoking Tobacco: Never Smokeless Tobacco: Never Alcohol Use Standard Drinks/Week Comments Never 0 (1 standard drink = 0.6 oz pur e alcohol) Sex and Gender Information Value Date Recorded Sex Assigned at Not on file Legal Sex Male 6:58 PM EST Gender Identity Not on file Sexual Orientation Not on file Last Filed Vital Signs Vital Sign Reading Time Taken Comments Blood Pressure - - Pulse - - Temperature - - Respiratory Rate - - Oxygen Saturation - - Inhaled Oxygen Concentration - - Weight 93 kg (205 lb) 03/03/2023 4:05 PM EST Height 172.7 cm (5' 8 ) 03/03/2023 4:05 PM EST Body Mass Index 31.17 03/03/2023 4:05 PM EST Plan of Treatment Health Maintenance Due Date Last Done Comments Advance Care Planning 1955 Hepatitis C Virus Screening 1955 DTaP/Tdap/Td Vaccines (1 - Tdap) 1976 Colonoscopy 2002 Pneumococcal Vaccines 50+ (1 of 1 - PCV) 11/26/2007 Zoster (Shingles) Vaccine (1 of 2) 11/26/2007 Influenza Vaccine 10/15/2024 01/02/2023, , 12/10/2020, Additional history exists COVID-19 Vaccine ( season) 2024 01/02/2023, 12/25/2021, 12/10/2020, Additional history exists RSV Vaccine 50 years and older and Patients (1 - 1-dose 75+ series) 2032 Hepatitis B Vaccines Aged Out No long er eligible based on patient's age to complete this topic Insurance [facility] Care Teams Metal Fabricator Welder Relationship Specialty Start Date End Date Pcp, No PCP - General General Medicine 02/10/23
--- OUTSIDE RECORDS SUMMARY | 2025-01-18 07:56 | XMS_ITS | Clinical Summary ---
Author Organization [facility] [place] Address [address] [place] [address] Phone Care Team Providers Care Movie Theater Manager Name Role Phone Ady Barroso MD Primary Care Provider [phone] Allergies No known active allergies Medications aspirin 81 mg EC tablet Take 1 tablet (81 mg total) by mouth 1 (one) time each day. Active cholecalciferol (VITAMIN D-3) 25 mcg (1,000 unit) tablet Take 1 tablet (1,000 Units total) by mouth 1 (one) time each day. Active lisinopril (PRINIVIL,ZESTRI L) 40 mg tablet 12/03/2017 Act andrea nebivoloL (BYSTOLIC) 20 mg tablet Take 1 tablet (20 mg total) by mouth 1 (one) time each day. Active pravastatin (PRAVACHOL) 20 mg tablet Take 1 tablet (20 mg total) by mouth 1 (one) time each day. Active spironolactone (ALDACTONE) 25 mg tablet 12/04/2017 Active Active Problems Problem Noted Date Diagnosed Date Elevated hemoglobin A1c 02/19/2024 Class 1 obesity due to exces s calories with serious comorbidity and body mass index (BMI) of 32.0 to 32.9 in adult 01/21/2024 Agatston coronary artery calcium score between 1 00 and 199 04/26/2019 Coronary artery disease invo lving eklutna coronary artery of eklutna heart without angina pectoris 04/26/2019 Chest discomfort 04/26/2019 Chest pain 04/26/2019 Chronic kidney disease (CKD) , stage III (moderate) (CMS/HCC V24, CMS/HCC V28) 04/26/2019 Essential hypertension, benign 04/26/2019 Low serum HDL 04/26/2019 Mixed hyperlipidemia 04/26/2019 Right-sided thoracic back pain 02/17/2018 BP (high blood pressure) 06/02/2017 Kidney failure 06/02/2017 Surgical History Surgery Date Site/Laterality Comments NEPHRECTOMY 03/17/2011 - 03/16/2012 Left PROCEDURE:NEPHRECTOMY HERNIA REPAIR Right PROCEDURE:LAPAROSCOPIC INGUINAL HERNIA REPAIR COLONOSCOPY PROCEDURE:COLONOSCOPY COLONOSCOPY 08/07/2017 N/A PROCEDURE:COLONOSCOPY;CO MMENT:Procedure: COLONOSCOPY; Surgeon: Zeb Acharya MD; Location: [facility] ENDOSCOPY; Service: Colorectal; Laterality: N/A; US GROIN/INGUINAL HERNIA Right Medical History Medical History Date Comments History of kidney cancer DX:Hist ory of kidney cancer Hypertension DX:Hypertension HLD (hyperlipidemia) Coronary artery calcification Ag agtston scor 109.1 Pre-diabetes Obesity (BMI 30-39.9) Family History Medical History Relation Name Comments Drug abuse Brother 1 Hypertension Brother 1 Diabetes Brother 2 Drug abuse Brother 2 Hypertension Brother 2 Arthritis Father Hypertension Father Lung cancer Father Hypertension Mother Relation Name Status Comments Brother 1 Brother 2 Father Mother Social History Tobacco Use Types Packs/Day Years Used Date Smoking Tobacco: Never Smokeless Tobacco: Never Tobacco Cessation:Counseling Given: Not Answered Alcohol Use Standard Drinks/Week Comments No 0 (1 standard drink = 0.6 oz pur e alcohol) Sex and Gender Information Value Date Recorded Sex Assigned at Not on file Legal Sex Male 2:50 PM EST Gender Identity Not on file Sexual Orientation Not on file Occupation Industry Job Start Date Job End Date Semi-retired, 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 Not on f ile Not on file Obstetrics History Last Filed Vital Signs Vital Sign Reading Time Taken Comments Blood Pressure 116/74 04/15/2024 1:24 PM EST Pulse 74 04/15/2024 1:24 PM EST Temperature - - Respiratory Rate - - Oxygen Saturation 97% 04/15/2024 1:24 PM EST Inhaled Oxygen Concentration - - Weight 93 kg (205 lb) 04/15/2024 1:24 PM EST Height 172.7 cm (5' 8 ) 04/15/2024 1:24 PM EST Body Mass Index 31.17 04/15/2024 1:24 PM EST Plan of Treatment Upcoming Encounters Date Type Department Care Team (Late st Contact Info) Description 02/03/2025 3:15 PM EST Office Visit [facility] [place] [address] [facility] [address] [place] [phone] Jory Allison MD [address] [facility] [address] [place], [place] [id number] Health Maintenance Due Date Last Done Comments RSV Immunization Adult Patients (1 - Risk 50-74 years 1-dose series) 11/26/2007 Falls Risk Assessment 10/15/2023 Hepatitis C Screening 10/15/2023 Social Influencers of Health Screening 10/15/2023 Depression Screening 03/17/2024 COVID-19 Vaccine ( season) 2024 01/02/2023, 12/25/2021, 12/10/2020, Additional history exists Influenza Vaccine (#1) 2024 , 01/02/2023, 12/25/2021, Additional history exists Hypertension/CHF/CAD Annual BMP Blood Test 01/07/2025 01/08/2024, 01/08/2024, 07/15/2023 Colorectal Cancer Screening: Colonoscopy 08/08/2027 08/07/2017 Cholesterol Screening (Lipid Panel) 01/07/2029 01/08/2024 DTaP,Tdap,and Td Vaccines (4 - Td or Tdap) 03/28/2031 03/28/2021, 02/24/2017, 12/29/2006 Zoster Vaccines Completed 04/12/2022, 03/17, 03/02/2018 Pneumococcal Vaccine: 50+ Years Completed 05/13/2023 HIB Vaccines Aged Out No longer eligi ble based on patient's age to complete this topic HPV Vaccines Aged Out No longer eligi ble based on patient's age to complete this topic Hepatitis A Vaccines Aged Out No long er eligible based on patient's age to complete this topic Hepatitis B Vaccines Aged Out No long er eligible based on patient's age to complete this topic IPV Vaccines Aged Out No longer eligi ble based on patient's age to complete this topic MMR Vaccines Aged Out No longer eligi ble based on patient's age to complete this topic Meningococcal ACWY Vaccine Aged Out N o longer eligible based on patient's age to complete this topic Meningococcal B Vaccine Aged Out No l onger eligible based on patient's age to complete this topic RSV Immunization Patients Under 20 months Aged Out No longer eligible based on patient's age to complete this topic Varicella Vaccines Aged Out No longer eligible based on patient's age to complete this topic Procedures Procedure Name Priority Date/Time Associated Diagnosis Comments COLONOSCOPY Routine 08/07/2017 from Last 3 Months or Most Recently Relevant to Health Maintenance Results * Colonoscopy (08/07/2017) Colonoscopy No Interpretation , Abstracted Anatomical Region Laterality Modality Other Historical Provider MD HEALTH MAINTENANCE Final Result from Last 3 Months or Most Recently Relevant to Health Maintenance Insurance [address] [address] [address] ([facility]) Care Teams Movie Theater Manager Relationship Specialty Start Date End Date Ady Barroso MD [address] [place] [phone] PCP - General Family Medicine 06/02/17
== END 2025-01-18 07:53 | disposition home or self-care (01) ==
LOC: HO.US 07:52
PROVIDERS: PCP Pediatrics; Visit Provider Urology
DX: N20.0 Calculus of kidney (principal)
CPT/HCPCS: 76775

== ENCOUNTER → 2025-01-18 07:52 | Outpatient (BNV) | payer OTHER, SELFPAY | PROVIDERS: PCP Pediatrics; Visit Provider Radiology Diagnostic Radiology | DX: N20.0 Calculus of kidney (principal) | CPT/HCPCS: 76775 ==

== ENCOUNTER 2025-01-28 08:45 | Outpatient (AMB) | payer OTHER, SELFPAY ==
--- NOTE | 2025-01-28 08:56 | A.OFFVIS_ITS ---
Intake Visit Reasons: 1Y PSA/US Intake Note: Patient is present for PSA/US Urology Med: None Antibiotic Allergy: None Blood Thinner: Aspirin Renal US- 01/18/2025 PSA- 1.3 01/12/2025 HA1C- 5.8 Administrative Assistant Required: No Accompanied by: Self / Same As Patient Allergies No Known Allergies Allergy (Verified 01/28/25 08:59) HPI Comments Details: Claudy Rajan is a very pleasant male. He is a patient of Dr Burgos. He is seen for the following urologic conditions. - renal cancer - renal cyst Yearly follow-up Ultrasound shows stability with cyst No stone on current imaging Per report creatinine and PSA normal range - PSA 1.[address] Loaiza May follow with Nephrology Renal cancer Left kidney removed in 2011 They present for continued followup and management, left side, renal cancer, , right side, simple cyst. The renal mass was diagnosed incidentally, during evaluation for, back pain. Imaging included a renal ultrasound, no progression, showing class II cyst(s) 08/03 , a renal ultrasound, 1-2 cm in size, on the right, renal cyst. Prior treatment(s) included nephrectomy. Staging of initial cancer 06/2011 Left - T1b, with no positive lymph nodes, without vena cava involvement. Recent labs include a creatinine 08/02 Cr 1.4, 08/06 1.4 PSA 08/01 2.1. Follow up imaging includes renal US, which shows, stable post intervention changes 07/31 , chest xray normal, , renal US - previosuly described cysts 01/31 , abdominal CT scan, , which shows, stable post intervention changes 08/01 , renal US, stable post intervention changes 07/03 thoracic MRI with normal right ultrasound. - 08/04 renal ultrasound absent left kidney, right kidney renal cyst 1.2 cm stable - 10/05 renal ultrasound absent left kidney, right renal cyst 1.6 cm, small stone - 11/06 renal ultrasound absent left kidney, right kidney renal cyst, small stone - 02/07 renal ultrasound absent left kidney, small cysts right kidney - 02/08 renal ultrasound absent left kidney normal Therapeutic plan further surveillance with imaging COUNTS INCLUDE 234 BEDS AT [facility] Medical History Vitamin D deficiency Sleep apnea Proteinuria Metabolic syndrome Hyperlipidemia HTN (hypertension) Edema Dyslipidemia Clear cell carcinoma of kidney Chronic kidney disease Surgical History H/O radical nephrectomy History of hernia repair Family History Father Stroke HTN (hypertension) Lung cancer Brother Diabetes mellitus Social History Patient Tobacco Use Status: Never used Tobacco Review of Systems Const Denies chills and Denies fever(s) Card Reports no additional complaints and Denies syncope Resp Denies cough GI Denies abdominal pain and Denies heartburn Reports as per HPI and Denies change in libido Neuro Denies syncope Psych Denies change in libido Endo Denies change in libido Physical Exam Const General: cooperative, healthy appearing, comfortable and no acute distress Orientation/consciousness: patient oriented x3 HEENT Face and sinus: Yes normal facial exam Mouth: moist mucous membranes Neck Neck: Yes normal visual inspection, Yes full ROM and Yes trachea midline Chest Chest palpation & inspection: normal inspection of the chest Resp Effort & Inspection: normal respiratory effort, able to speak in complete s entences and no respiratory distress GI Inspection: Yes normal to inspection Back/Spine/Pelvis Cervical Spine: normal cervical lordosis Thoracic/Lumbar Spine: thoracic and lumbar spine normal to inspection Skin General skin exam: no rashes or lesions noted Neuro General: patient oriented x3, gait normal, tone normal and moves all extremities Extrem General: Yes normal to inspection and Yes capillary refill normal Results AMB Urinalysis, Automated UA Leukoctes 0 Erik/uL Last Edit by BROOKE Cleary on 01/28/25 09:05 UA Nitrite Negative Last Edit by BROOKE Cleary on 01/28/25 09:05 UA Urobilinogen 0.2 mg/dL Last Edit by BROOKE Cleary on 01/28/25 09:0 5 UA Protein 0 mg/dL Last Edit by BROOKE Cleary on 01/28/25 09:05 UA pH 6.0 Last Edit by BROOKE Cleary on 01/28/25 09:05 UA Blood 0 Leonardo/uL Last Edit by BROOKE Cleary on 01/28/25 09:05 UA Specific Madeline 1.015 Last Edit by LEVI ClearyA on 01/28/25 09: 05 UA Ketone Negative Last Edit by BROOKE Cleary on 01/28/25 09:05 UA Bilirubin 0 mg/dL Last Edit by Bobbi Verde RMA on 01/28/25 09:05 UA Glucose 0 mg/dL Last Edit by LEVI ClearyA on 01/28/25 09:05 Results Reviewed Results Reviewed: Laboratory Last Values Urine pH (Auto) 6.0 01/28/25 08:59 Specific Madeline (Auto) 1.015 01/28/25 08:59 Urine Protein (Auto) 0 mg/dL 01/28/25 08:59 Glucose (UA)(Auto) 0 mg/dL 01/28/25 08:59 Urine Ketones (Auto) Negative 01/28/25 08:59 Urine Blood (Auto) 0 Leonardo/uL 01/28/25 08:59 Urine Nitrite (Auto) Negative 01/28/25 08:59 Urine Bilirubin (Auto) 0 mg/dL 01/28/25 08:59 Urine Urobilinogen (Auto) 0.2 mg/dL 01/28/25 08:59 Leukocyte Esterase (Auto) 0 Erik/uL 01/28/25 08:59 Assessment & Plan Assessment & Plan (1) Kidney malignancy: Code(s): C64.9 - Malignant neoplasm of unspecified kidney, except renal pelvis Category: Medical (2) Nephrolithiasis: Code(s): N20.0 - Calculus of kidney Category: Medical Plan Twelve month follow-up repeat ultrasound Orders: Orders US renal BI 12 Months C64.9 - Malignant neoplasm of unspecified kidney, except renal pelvis AMB Urinalysis Automated Today Z13.9 - Encounter for screening, unspecified Patient Instructions: This note is constructed using voice recognition software. While every effort has been made to ensure accuracy sales stock associate errors may have been included. Imaging studies, laboratory and physical exam results were discussed and reviewed in detail. No major barriers to patient understanding were identified. An opportunity to ask questions regarding the treatment plan was provided. All questions were answered. The patient expressed understanding and agreement with the above treatment plan. The patient is aware they should contact our office by phone for worsening of their current condition or the appearance of new urologic symptoms. Compliance is encouraged with any medications and followup testing that is ordered. It is a privilege to participate in the urologic care of your patient. If you have any questions or concerns regarding treatment for the above conditions, or other urologic issues, please do not hesitate to contact me. The office telephone contact is [phone]. Sincerely, Dr Boogie Hillman MD, [place] Compassionate Specialist Care for the Genitourinary System Coding Level of Care Code Est Pt Level 4 (09824) Diagnoses Kidney malignancy C64.9 Nephrolithiasis N20.0
--- OUTSIDE RECORDS SUMMARY | 2025-01-28 09:02 | XMS_ITS | Clinical Summary ---
Author Organization [facility] Address [address] [place] [address] Care Team Providers Care Log Sawyer Name Role Phone Ady Barroso MD Primary [...] pain 04/26/2019 Coronary artery disease invo lving k[place]sel dehe w[place] coronary artery of k[place] de[place] heart without angina pectoris 04/26/2019 Right-sided thoracic [...] Advance Directives For more information, please contact: [phone] Latest Code Status on File Code Status Date Activated Date Inactivated Comments Full Code 08/07/2017 8:00 AM 08/07/2017 3:02 PM This code status was ascertained in the following way: discussion with patient . Care Teams Log Sawyer Relationship Specialty Start Date End Date Ady Barroso MD PCP - General Family Medicine 06/02/17
--- OUTSIDE RECORDS SUMMARY | 2025-01-28 09:03 | XMS_ITS | Clinical Summary ---
Author Organization [facility] Address [address] [place] [address] Care Team Providers Care Business Practices Supervisor Name Role Phone Pcp, No Primary Care [...] patient's age to complete this topic Insurance [facility] Care Teams Business Practices Supervisor Relationship Specialty Start Date End Date Pcp, No PCP - General General Medicine 02/10/23
--- OUTSIDE RECORDS SUMMARY | 2025-01-28 09:03 | XMS_ITS | Clinical Summary ---
Author Organization [facility] Address [address] [place] [id number] Care Team Providers Care Rag Inspector Name Role Phone Ady Barroso MD Primary Care Provider [phone] Allergies No known active allergies Medications fluorouracil [...] topic Insurance HMO NON PAR Care Teams Rag Inspector Relationship Specialty Start Date End Date Ady Barroso MD [address] [place] [phone] PCP - General 05/14/17
--- OUTSIDE RECORDS SUMMARY | 2025-01-28 09:03 | XMS_ITS | Clinical Summary ---
Author Organization [facility] [place] Address [address] [place] [address] Phone Care Team Providers Care Impregnating Helper Name Role Phone Ady Barroso MD Primary Care Provider [phone] Allergies No known active allergies Medications aspirin [...] 199 04/26/2019 Coronary artery disease invo lving apache coronary artery of apache heart without angina pectoris 04/26/2019 Chest discomfort [...] MMENT:Procedure: COLONOSCOPY; Surgeon: Zeb Acharya MD; Location: [facility] ENDOSCOPY; Service: Colorectal; Laterality: N/A; US GROIN/INGUINAL [...] Date Job End Date Semi-retired, 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 Not on f ile [...] 02/03/2025 3:15 PM EST Office Visit [facility] [place] [address] [facility] [address] [place] [phone] Jory Allison MD 19 [facility] [address] [place], [place] [phone] Health Maintenance Due Date Last Done Comments [...] Most Recently Relevant to Health Maintenance [place] [address] [place] [address] ([facility]) Care Teams Impregnating Helper Relationship Specialty Start Date End Date Ady Barroso MD [address] [place] [phone] PCP - General Family Medicine 06/02/17
== END 2025-01-28 09:20 | disposition home or self-care (01) ==
LOC: HO.HUSH 08:46
PROVIDERS: PCP Pediatrics; Visit Provider Urology
DX: C64.9 Malignant neoplasm of unspecified kidney, except renal pelvis (principal); N20.0 Calculus of kidney; Z13.9 Encounter for screening, unspecified
CPT/HCPCS: 99214

== ENCOUNTER → 2025-01-28 08:45 | Outpatient (BNVA) | payer OTHER, SELFPAY | PROVIDERS: PCP Pediatrics; Visit Provider Urology | DX: Z08 Encounter for follow-up examination after completed treatment for malignant neoplasm (principal); N28.1 Cyst of kidney, acquired; N20.0 Calculus of kidney; Z85.528 Personal history of other malignant neoplasm of kidney; Z90.5 Acquired absence of kidney; Z13.9 Encounter for screening, unspecified | CPT/HCPCS: 81003 ==